=== PATIENT | male | born 1955 | race Caucasian/White ===

== ENCOUNTER 2018-07-18 11:28 | Emergency (ER) | payer OTHER ==
[~2018-07-18] VITALS: Ht 180.3 cm; Wt 90.7 kg
== END 2018-07-18 12:45 | disposition home or self-care (01) ==
LOC: ED 11:28
DX: S61.412A Laceration without foreign body of left hand, initial encounter (principal); R03.0 Elevated blood-pressure reading, without diagnosis of hypertension; F17.200 Nicotine dependence, unspecified, uncomplicated; Z88.5 Allergy status to narcotic agent; W23.0XXA Caught, crushed, jammed, or pinched between moving objects, initial encounter
CPT/HCPCS: 73130; 99283

== ENCOUNTER 2019-12-14 17:13 | Emergency (ER) | payer BC ==
[~2019-12-14] VITALS: Ht 180.3 cm; Wt 97.5 kg
--- OUTSIDE RECORDS SUMMARY | ~2019-12-14 | XMS | Encounter Summary ---
Demographics + + + | Address | [address] | | | [place] [address] | + + + | Home Phone | | + + + | Preferred Language | Unknown | + + + | Marital Status | | + + + | Caodaism Affiliation | CHR | + + + | Race | White | + + + | Ethnic Group | Not or | + + + Author + + + | Author | [facility] | + + + | Organization | [facility] | + + + | Address | Unknown | + + + | Phone | Unavailable | + + + Support + + + + + | Name | Relationship | Address | Phone | + + + + + | Adilene Morin | ECON | [address] | | | | | [place] [address] | | + + + + + Care Team Providers + +------+ + | Care Staff Development Coordinator Rn Name | Role | Phone | + +------+ + PCP | Unavailable | + +------+ + Encounter Details +--------+ + + + + | Date | Type | Department | Care Team | Description | +--------+ + + + + | 01/28/ | Procedure - | [facility] | Record, Operation | Operative Report | | 2006 | | [place] [facility] [address] | | | | | Transcribed | [facility] | | | | | | Mailcode: [facility] | | [facility] | | | | | [facility], [address] | | | | | | [place], [place] | | | | | | [address] | | | | | | [phone] | | | +--------+ + + + + Social History + +-------+ +--------+------+ | Tobacco Use | Types | Packs/Day | Years | Date | | | | | Used | | + +-------+ +--------+------+ | Never Assessed | | | | | + +-------+ +--------+------+ + + + | Sex Assigned at | Date Recorded | | | | + + + | Not on file | | + + + + + + + | Job Start Date | Occupation | Industry | + + + + | Not on file | Not on file | Not on file | + + + + + + + + | Travel History | Travel Start | Travel End | + + + + + + | No recent travel history available. | + + documented as of this encounter Plan of Treatment Not on filedocumented as of this encounter Procedures + +--------+ + + + | Procedure Name | Priori | Date/Time | Associated Diagnosis | Comments | | | ty | | | | + +--------+ + + + | OPERATION RECORD | | 01/28/2007 | | Results for this | | | | 12:00 AM | | procedure are in the | | | | PST | | results section. | + +--------+ + + + documented in this encounter Results OPERATION RECORD (01/28/2007 12:00 AM PST) + + | Procedure Note | + + | 01/28/2007 12:00 AM PST | | [id number] | | [id number] LIANG BARR [id number] | | | | Date: 01/28/2007 | | | | Attending Surgeon: Fabrizio Gu M.D. | | | | Mobile Home Installer(s): Renaldo Brenner M.D., Ph.D. 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 | | | | Postoperative Diagnosis(es): | | Azoospermia. | | | | Procedures Performed: | | Bilateral epididymal vasostomy. | | | | Anesthesia: | | Cord block. | | | | Specimens: | | None. | | | | Indications: | | Mr. Morin had a vasectomy 20 years ago after 2 children. He is | | from his first . He is now to a 38-year-old woman who has had | | 1 child, but with whom he would like a child. Procedure is indicated for | | procreation. | | | | Findings: | | After removing the vasectomy sites, pasty semen was recovered that did not | | contain sperm. The epididymis was explored. On the left, intact sperm was | | recovered from the junction of the caput and corpus epididymis where an | | epididymal vasostomy was done. On the right, sperm was recovered from the | | distal corpus epididymis where an epididymal vasostomy was performed. | | | | Procedure: | | The patient was identified and brought to the operating room, where he was | | given a satisfactory cord block with 0.5% ropivacaine mixed 1:1 with 1% | | Xylocaine. He was prepped and draped in a standard manner for genital | | surgery. The left scrotum was entered. The site of the previous vasectomy | | identified and excised. Distal vas patency was determined by a normal | | saline flush. Proximally, we found no sperm. The testis was delivered, | | and the epididymis was explored. It appeared to be obstructed at the | | junction of the caput and corpus epididymis. After adequate hemostasis, | | the ends of the vas and epididymis were brought through a rubber dam, and | | under the operating microscope, an epididymal tubule was dissected free. | | It was opened. There was immediate gush of opalescent semen containing | | sperm. A double-layer epididymal vasostomy performed in the routine | | fashion with 10-0 and 9-0 Dexon. After completing the repair, a final | | check was made for hemostasis. The vas and epididymis were replaced into | | the scrotum, and the scrotum was closed in 2 layers with 4-0 chromic. | | | | The right side was done identically. It will not be separately described, | | except to say that the epididymal vasostomy was done more distally. | | | | At the end of the procedure, a dressing was applied under an athletic | | supporter. The patient was returned to the ambulatory surgery unit in | | satisfactory condition having tolerated the procedure well. | | | | | | | | | | Fabrizio Gu M.D. | | | | EFF / HS | | [id number] / [id number] / [id number] / [id number] | | | | | | | | | | | | Electronically signed by Fabrizio Gu 02-14-2007 02:44:52 PM | | | | | + + documented in this encounter Visit Diagnoses Not on filedocumented in this encounter"
--- OUTSIDE RECORDS SUMMARY | ~2019-12-14 | XMS | Clinical Summary ---
Demographics + + + | Address | [address] | | | [place] [address] | + + + | Home Phone | | + + + | Preferred Language | Unknown | + + + | Marital Status | | + + + | Yazdanism Affiliation | 1013 | + + + | Race | Unknown | + + + | Ethnic Group | Unknown | + + + Author + + + | Author | [facility] | | | and [place] | + + + | Organization | [facility] | | | and [place] | + + + | Address | Unknown | + + + | Phone | Unavailable | + + + Support + + + + + | Name | Relationship | Address | Phone | + + + + + | Adilene Morin | ECON | [address] | | | | | [place] [address] | | + + + + + Care Team Providers + +------+ + | Care Ribbing Machine Operator Name | Role | Phone | + +------+ + | Luís Goodrich PA-C | PCP | | + +------+ + Allergies + + + + + + | Active Allergy | Reactions | Severity | Noted | Comments | | | | | Date | | + + + + + + | Hydromorphone | Nausea Only | Low | 08/07/18 | | | | | | 12 | | + + + + + + Medications + + + +---------+------+------+-------+ | Medication | Sig | Dispensed | Refills | Star | End | Statu | | | | | | t | Date | s | | | | | | Date | | | + + + +---------+------+------+-------+ | aspirin 81 mg EC | Take 81 mg by mouth | | 0 | | | Activ | | tablet | Daily. | | | | | e | + + + +---------+------+------+-------+ | UNABLE TO FIND | Med Name: Copaiba | | 0 | | | Activ | | | doTERRA Essential | | | | | e | | | oilForms: oral and | | | | | | | | topical Ingredients: | | | | | | | | Resin from | | | | | | | | Copaifera | | | | | | | | reticulata, | | | | | | | | officinalis, | | | | | | | | coriacea, and | | | | | | | | jim, | | | | | | | | -caryophyllene | | | | | | + + + +---------+------+------+-------+ | UNABLE TO FIND | Med Name: Deep Blue | | 0 | | | Activ | | | doTerra essential | | | | | e | | | oil Form: topically | | | | | | | | use only | | | | | | | | Ingredients: | | | | | | | | [place], | | | | | | | | Camphor, Peppermint, | | | | | | | | Ylang Ylang, | | | | | | | | Helichrysum, Blue | | | | | | | | Tansy, Blue | | | | | | | | Chamomile, and | | | | | | | | Osmanthus | | | | | | + + + +---------+------+------+-------+ | UNABLE TO FIND | Med Name: Serenity | | 0 | | | Activ | | | doTERRA essential | | | | | e | | | oilForms: Topical | | | | | | | | and inhalation | | | | | | | | Ingredients: | | | | | | | | Lavender Flower, | | | | | | | | Cedarwood, Ho Wood | | | | | | | | Roberdel, Ylang Viviang | | | | | | | | Flower, Marjoram | | | | | | | | Roberdel, Fabio | | | | | | | | Chamomile Flower, | | | | | | | | Vetiver Root, | | | | | | | | Vanilla Soto | | | | | | | | Absolute, | | | | | | | | Sandalwood | | | | | | + + + +---------+------+------+-------+ | UNABLE TO FIND | Med Name: Breath | | 0 | | | Activ | | | doTERRA essential | | | | | e | | | oil Form: Topical | | | | | | | | Ingredients: Carmelina | | | | | | | | Roberdel, Eucalyptus | | | | | | | | Roberdel, Peppermint | | | | | | | | Plant, Melaleuca | | | | | | | | Roberdel, Lemon Peel, | | | | | | | | Cardamom Seed, | | | | | | | | Ravintsara Roberdel, | | | | | | | | Ravensara Roberdel | | | | | | | | essential oils | | | | | | + + + +---------+------+------+-------+ | UNABLE TO FIND | Med Name: | | 0 | | | Activ | | | Frankincense doTERRA | | | | | e | | | essential oil Form: | | | | | | | | Topical, Oral (put | | | | | | | | in a capsule or in | | | | | | | | liquids to drink) | | | | | | | | Ingredients: Resin | | | | | | | | from Angelaia | | | | | | | | carterii, sacra, | | | | | | | | papyrifera, and | | | | | | | | frereana, a-pinene, | | | | | | | | limonene, a-thujene | | | | | | + + + +---------+------+------+-------+ | UNABLE TO FIND | Med Name: On Guard | | 0 | | | Activ | | | doTerra essential | | | | | e | | | oil Form: topical, | | | | | | | | oral. Ingredients: | | | | | | | | Wild [place] Peel, | | | | | | | | Clove Wanette, Cinnamon | | | | | | | | Roberdel, Cinnamon Bark, | | | | | | | | Eucalyptus Roberdel, | | | | | | | | and Candace | | | | | | | | Roberdel/Flower | | | | | | | | essential oils. | | | | | | + + + +---------+------+------+-------+ | UNABLE TO FIND | Med Name: Julisa [place] | | 0 | | | Activ | | | (essential oil omega | | | | | e | | | complex) | | | | | | | | Directions: Take | | | | | | | | four caps by mouth | | | | | | | | once daily with food | | | | | | | | Ingredients: "One | | | | | | | | serving of xEO Bereket | | | | | | | | provides 900 | | | | | | | | milligrams of marine | | | | | | | | lipids (providing | | | | | | | | 300 mg of EPA, 300 | | | | | | | | mg of DHA, and 70 mg | | | | | | | | of other omega 3s), | | | | | | | | and a blend of 250 | | | | | | | | mg of plant-sourced | | | | | | | | fatty acids. xEO | | | | | | | | Bereket also includes | | | | | | | | 800 IU of natural | | | | | | | | vitamin D, 60 IU of | | | | | | | | natural vitamin E, | | | | | | | | and 1 mg of | | | | | | | | astaxanthin, a | | | | | | | | powerful antioxidant | | | | | | | | carotenoid* | | | | | | | | harvested from | | | | | | | | microalgae" | | | | | | + + + +---------+------+------+-------+ | UNABLE TO FIND | Med Name: Microplex | | 0 | | | Activ | | | VMz Food nutrient | | | | | e | | | complex doTerra | | | | | | | | product | | | | | | | | Instructions: take 4 | | | | | | | | caps by mouth once | | | | | | | | daily with | | | | | | | | foodIngredients: | | | | | | | | Provides 22 | | | | | | | | essential vitamins | | | | | | | | and minerals, | | | | | | | | vitamins A, B, C, D, | | | | | | | | and E, calcium, | | | | | | | | magnesium, zinc, | | | | | | | | Natural folate from | | | | | | | | lemon peel, | | | | | | | | selenium, copper, | | | | | | | | manganese, and | | | | | | | | chromium, Includes a | | | | | | | | whole-food | | | | | | | | botanical blend of | | | | | | | | kale, dandelion, | | | | | | | | parsley, kelp, | | | | | | | | broccoli, brussels | | | | | | | | sprout, cabbage, and | | | | | | | | spinach, digestive | | | | | | | | enzyme blend of | | | | | | | | protease, lactase, | | | | | | | | lipase, amylase, | | | | | | | | a-galactosidase, | | | | | | | | diastase, | | | | | | | | glucoamylase, and | | | | | | | | peptidase, | | | | | | | | Peppermint, Roxana, | | | | | | | | and Brad, Made | | | | | | | | with sodium lauryl | | | | | | | | sulfate-free | | | | | | | | vegetable capsules | | | | | | + + + +---------+------+------+-------+ | UNABLE TO FIND | Med Name: Alpha CRS+ | | 0 | | | Activ | | | Cellular Vitality | | | | | e | | | ComplexDirections: | | | | | | | | take 4 caps by mouth | | | | | | | | once daily with | | | | | | | | food Ingredients: | | | | | | | | baicalin from | | | | | | | | scutellaria root, | | | | | | | | resveratrol from | | | | | | | | Polygonum | | | | | | | | cuspidatum, ellagic | | | | | | | | acid from | | | | | | | | pomegranate, | | | | | | | | proanthocyanidins | | | | | | | | from grape seeds, | | | | | | | | curcumin from | | | | | | | | turmeric root, and | | | | | | | | silymarin from milk | | | | | | | | thistle, extract of | | | | | | | | Boswellia colleen | | | | | | | | for boswellic acid, | | | | | | | | extract of Ginkgo | | | | | | | | biloba, coenzyme | | | | | | | | Q10, quercetin, | | | | | | | | alpha-lipoic acid, | | | | | | | | and | | | | | | | | apodpr-c-taggkbouc), | | | | | | | | Peppermint, Roxana, | | | | | | | | and [place], Made | | | | | | | | with sodium lauryl | | | | | | | | sulfate-free | | | | | | | | vegetable capsules | | | | | | | | Last | | | | | | + + + +---------+------+------+-------+ | amiodarone | Take 1 tablet by | 60 | 3 | 03/3 | | Activ | | (PACERONE) 200 mg | mouth 2 times daily. | tablet | | 20 | | e | | tablet | | | | 19 | | | + + + +---------+------+------+-------+ | clopidogrel | Take 1 tablet by | 90 | 3 | 04/0 | | Activ | | (PLAVIX) 75 mg | mouth Daily. | tablet | | 1/20 | | e | | tablet | | | | 19 | | | + + + +---------+------+------+-------+ | verapamil | Take 1 capsule by | 30 | 3 | 04/0 | | Activ | | (VERELAN) 120 mg SR | mouth Daily. | capsule | | 1/20 | | e | | capsule | | | | 19 | | | + + + +---------+------+------+-------+ | UNABLE TO FIND | Med Name: Copaiba | | 0 | | | Activ | | | doTERRA Essential | | | | | e | | | oilForms: oral and | | | | | | | | topical Ingredients: | | | | | | | | Resin from | | | | | | | | Copaifera | | | | | | | | reticulata, | | | | | | | | officinalis, | | | | | | | | coriacea, and | | | | | | | | langbipinorffii, | | | | | | | | -caryophyllene | | | | | | + + + +---------+------+------+-------+ | UNABLE TO FIND | Med Name: Deep Blue | | 0 | | | Activ | | | doTerra essential | | | | | e | | | oil Form: topically | | | | | | | | use only | | | | | | | | Ingredients: | | | | | | | | [place] Ka[place]Ho, | | | | | | | | Camphor, Peppermint, | | | | | | | | Ylang Ylang, | | | | | | | | Helichrysum, Blue | | | | | | | | Tansy, Blue | | | | | | | | Chamomile, and | | | | | | | | Osmanthus | | | | | | + + + +---------+------+------+-------+ | UNABLE TO FIND | Med Name: Serenity | | 0 | | | Activ | | | doTERRA essential | | | | | e | | | oilForms: Topical | | | | | | | | and inhalation | | | | | | | | Ingredients: | | | | | | | | Lavender Flower, | | | | | | | | Cedarwood, Ho Wood | | | | | | | | Roberdel, Ylang Ylang | | | | | | | | Flower, Marjoram | | | | | | | | Roberdel, Fabio | | | | | | | | Chamomile Flower, | | | | | | | | Vetiver Root, | | | | | | | | Vanilla Soto | | | | | | | | Absolute, | | | | | | | | Sandalwood | | | | | | + + + +---------+------+------+-------+ | UNABLE TO FIND | Med Name: Breath | | 0 | | | Activ | | | doTERRA essential | | | | | e | | | oil Form: Topical | | | | | | | | Ingredients: Carmelina | | | | | | | | Roberdel, Eucalyptus | | | | | | | | Roberdel, Peppermint | | | | | | | | Plant, Melaleuca | | | | | | | | Roberdel, Lemon Peel, | | | | | | | | Cardamom Seed, | | | | | | | | Ravintsara Roberdel, | | | | | | | | Ravensara Roberdel | | | | | | | | essential oils | | | | | | + + + +---------+------+------+-------+ | UNABLE TO FIND | Med Name: | | 0 | | | Activ | | | Frankincense doTERRA | | | | | e | | | essential oil Form: | | | | | | | | Topical, Oral (put | | | | | | | | in a capsule or in | | | | | | | | liquids to drink) | | | | | | | | Ingredients: Resin | | | | | | | | from Boswellia | | | | | | | | carterii, sacra, | | | | | | | | papyrifera, and | | | | | | | | frereana, a-pinene, | | | | | | | | limonene, a-thujene | | | | | | + + + +---------+------+------+-------+ | UNABLE TO FIND | Med Name: On Guard | | 0 | | | Activ | | | doTerra essential | | | | | e | | | oil Form: topical, | | | | | | | | oral. Ingredients: | | | | | | | | Wild [place] Peel, | | | | | | | | Clove Wanette, Cinnamon | | | | | | | | Roberdel, Cinnamon Bark, | | | | | | | | Eucalyptus Roberdel, | | | | | | | | and Candace | | | | | | | | Roberdel/Flower | | | | | | | | essential oils. | | | | | | + + + +---------+------+------+-------+ | UNABLE TO FIND | Med Name: Julisa Cuba | | 0 | | | Activ | | | (essential oil omega | | | | | e | | | complex) | | | | | | | | Directions: Take | | | | | | | | four caps by mouth | | | | | | | | once daily with food | | | | | | | | Ingredients: "One | | | | | | | | serving of xEO Bereket | | | | | | | | provides 900 | | | | | | | | milligrams of marine | | | | | | | | lipids (providing | | | | | | | | 300 mg of EPA, 300 | | | | | | | | mg of DHA, and 70 mg | | | | | | | | of other omega 3s), | | | | | | | | and a blend of 250 | | | | | | | | mg of plant-sourced | | | | | | | | fatty acids. xEO | | | | | | | | Bereket also includes | | | | | | | | 800 IU of natural | | | | | | | | vitamin D, 60 IU of | | | | | | | | natural vitamin E, | | | | | | | | a... | | | | | | + + + +---------+------+------+-------+ | UNABLE TO FIND | Med Name: Microplex | | 0 | | | Activ | | | VMz Food nutrient | | | | | e | | | complex doTerra | | | | | | | | product | | | | | | | | Instructions: take 4 | | | | | | | | caps by mouth once | | | | | | | | daily with | | | | | | | | foodIngredients: | | | | | | | | Provides 22 | | | | | | | | essential vitamins | | | | | | | | and minerals, | | | | | | | | vitamins A, B, C, D, | | | | | | | | and E, calcium, | | | | | | | | magnesium, zinc, | | | | | | | | Natural folate from | | | | | | | | lemon peel, | | | | | | | | selenium, copper, | | | | | | | | manganese, and | | | | | | | | chromium, Includes a | | | | | | | | whole-food | | | | | | | | botanical blend of | | | | | | | | kale, dandelion, | | | | | | | | parsley, kelp, | | | | | | | | broccoli, br... | | | | | | + + + +---------+------+------+-------+ | UNABLE TO FIND | Med Name: Alpha CRS+ | | 0 | | | Activ | | | Cellular Vitality | | | | | e | | | ComplexDirections: | | | | | | | | take 4 caps by mouth | | | | | | | | once daily with | | | | | | | | food Ingredients: | | | | | | | | baicalin from | | | | | | | | scutellaria root, | | | | | | | | resveratrol from | | | | | | | | Polygonum | | | | | | | | cuspidatum, ellagic | | | | | | | | acid from | | | | | | | | pomegranate, | | | | | | | | proanthocyanidins | | | | | | | | from grape seeds, | | | | | | | | curcumin from | | | | | | | | turmeric root, and | | | | | | | | silymarin from milk | | | | | | | | thistle, extract of | | | | | | | | Boswellia colleen | | | | | | | | for boswellic acid, | | | | | | | | extract of Ginkgo | | | | | | | | biloba, c... | | | | | | + + + +---------+------+------+-------+ | atorvaSTATin | Take 1 tablet by | | 0 | 04/2 | | Activ | | (LIPITOR) 20 mg | mouth nightly. | | | 4/20 | | e | | tablet | | | | 19 | | | + + + +---------+------+------+-------+ | metoprolol | Take 1 tablet by | | 0 | 04/2 | | Activ | | succinate | mouth daily. | | | 4/20 | | e | | (TOPROL-XL) 25 mg 24 | | | | 19 | | | | hr tablet | | | | | | | + + + +---------+------+------+-------+ | nitroglycerin | Place 1 tablet under | | 0 | 04/0 | 04/0 | Activ | | (NITROSTAT) 0.4 mg | the tongue every 5 | | | 3/20 | 2/20 | e | | SL tablet | (five) minutes as | | | 19 | 20 | | | | needed for Chest | | | | | | | | pain. | | | | | | + + + +---------+------+------+-------+ | aspirin 81 MG EC | Take 81 mg by mouth | | 0 | | | Activ | | tablet | daily with | | | | | e | | | breakfast. | | | | | | + + + +---------+------+------+-------+ | clopidogrel | Take 75 mg by mouth | | 0 | | | Activ | | (PLAVIX) 75 mg | daily. | | | | | e | | tablet | | | | | | | + + + +---------+------+------+-------+ Active Problems + + + | Problem | Noted Date | + + + | Chronic back pain | 06/25/2019 | + + + | Coronary atherosclerosis | 06/25/2019 | + + + | Hyperlipidemia | 06/25/2019 | + + + | [place] (myocardial infarction) | 06/25/2019 | + + + + + | Overview: Overview: secondary to occlusion of nondominant | | RCA, S/P stenting June 2012 | + + + + + | Past history of chewing tobacco use | 06/25/2019 | + + + | S/P coronary artery stent placement | 03/22/2019 | + + + | Other chest pain | 03/07/2019 | + + + | STEMI (ST elevation myocardial infarction) | 02/24/2019 | + + + | Cellulitis | 10/02/2015 | + + + | Contusion of right knee | 10/02/2015 | + + + | Deep vein thrombosis (DVT) of lower extremity | 10/02/2015 | + + + | Embolism from vein | 10/02/2015 | + + + | Iliotibial band syndrome | 10/02/2015 | + + + | Localized swelling, mass, or lump of lower extremity | 10/02/2015 | + + + | Gastroesophageal reflux disease | 02/11/2015 | + + + | Heart murmur | 04/19/2014 | + + + | Hypertension | 04/17/2013 | + + + Family History + + +------+ + | Medical History | Relation | Name | Comments | + + +------+ + | No known problems | Father | | | + + +------+ + | Cancer | Father | | | + + +------+ + | No known problems | Mother | | | + + +------+ + | defects | Sister | | | + + +------+ + | Early | Sister | | | + + +------+ + | Sudden | Sister | | | + + +------+ + + +------+ + + | Relation | Name | Status | Comments | + +------+ + + | Father | | | | + +------+ + + | Father | | | | + +------+ + + | Father | | | | + +------+ + + | Mother | | | | + +------+ + + | Mother | | | | + +------+ + + | Sister | | | | + +------+ + + | Sister | | | | + +------+ + + Social History + + + +--------+ + | Tobacco Use | Types | Packs/Day | Years | Date | | | | | Used | | + + + +--------+ + | Former Smoker | Cigarettes | 0.5 | | 03/09/1989 - | | | | | | 02/24/2019 | + + + +--------+ + + +---+---+---+ | Smokeless Tobacco: | | | | | Current User | | | | + +---+---+---+ + + +---------+ + | Alcohol Use | Drinks/Week | oz/Week | Comments | + + +---------+ + | No | | | unknown | + + +---------+ + + + + | Sex Assigned at [...] recent travel history available. | + + Last Filed Vital Signs + + + + + | Vital Sign | Reading | Time Taken | Comments | + + + + + | Blood Pressure | 160/90 | 06/21/2019 11:28 AM | | | | | PDT | | + + + + + | Pulse | 58 | 06/21/2019 11:28 AM | | | | | PDT | | + + + + + | Temperature | 36.8 C (98.2 F) | 03/01/2019 9:25 PM | | | | | PDT | | + + + + + | Respiratory Rate | 18 | 06/21/2019 11:28 AM | | | | | PDT | | + + + + + | Oxygen Saturation | 97% | 03/09/2019 12:01 PM | | | | | PDT | | + + + + + | Inhaled Oxygen | - | - | | | Concentration | | | | + + + + + | Weight | 100.2 kg (221 lb) | 06/21/2019 11:28 AM | | | | | PDT | | + + + + + | Height | 179.1 cm (5' 10.5") | 06/21/2019 11:28 AM | | | | | PDT | | + + + + + | Body Mass Index | 31.26 | 06/21/2019 11:28 AM | | | | | PDT | | + + + + + Plan of Treatment + + + + + | Health Maintenance | Due Date | Last Done | Comments | + + + + + | Hepatitis C | | | | | Screening | 8 | | | + + + + + | Vaccine: | | | | | Pneumococcal 19-64 | 4 | | | | (1 of 1 - PPSV23) | | | | + + + + + | Colorectal Cancer | | | | | Screening | 8 | | | | (Colonoscopy) | | | | + + + + + | Vaccine: Zoster (1 | | | | | of 2) | 8 | | | + + + + + | Statin Therapy | | | | | (optimal intensity) | 9 | | | + + + + + | Vaccine: Influenza | | | | | (#1) | 9 | | | + + + + + | Vaccine: | | 10/23/2013 | | | Dtap/Tdap/Td (2 - | 3 | | | | Td) | | | | + + + + + Implants + +-------+------+ +--------+--------+--------+ | Implanted | Type | Area | Manufacture | Device | Shelf | Model | | | | | r | | Expira | / | | | | | | Identi | tion | Serial | | | | | | fier | Date | / Lot | + +-------+------+ +--------+--------+--------+ | Stent Luis Alberto Synergy Mr 2.5 X 16 | Stent | | [place] | [id number] | 11/01/ | [id number] | | - [id number]: Qty: | | | SCIENTIFIC | [id number] | 2020 | [id number] | | 1 on 02/24/2019 by Nghia, | | | RICHARD - BSCI | 91 | | 50 / | | Maynor Mancera MD at [facility] | | | | | | /[id number] | | [facility] | | | | | | [address] | | CENTER | | | | | | | + +-------+------+ +--------+--------+--------+ Results Not on filefrom Last 3 Months Insurance +-------+--------+ +--------+-------+---------+------+ | Payer | Benefi | Subscriber | Effect | Phone | Address | Type | | | t Plan | ID | yuliana | | | | | | / | | Dates | | | | | | Group | | | | | | +-------+--------+ +--------+-------+---------+------+ | BCBS | BCBS | [id number] | 02/28/20 | | | PPO | | | OOS | 7 | 19-Pre | | | | | | PPO | | sent | | | | +-------+--------+ +--------+-------+---------+------+ + +--------+ +--------+ + + | Guarantor Name | Accoun | Relation to | Date | Phone | Billing Address | | | t Type | Patient | of | | | | | | | | | | + +--------+ +--------+ + + | Maury Morin | Person | Self | [birth year] | [address] | | | al/[place] | | [address] | [phone] | [place] | | | [place] | | | [address] ([place]) | [address] | + +--------+ +--------+ + + Advance Directives + + + + + | Type | Date Recorded | Patient | Explanation | | | | Seo Marketing Specialist | | + + + + + | Power of | | | | | Product Advisor | | | | + + + + + | Advance | 02/24/2019 4:23 | | | | Directive | PM | | | + + + + + + + + + + | Code Status | Date | Date | Comments | | | Activated | Inactivated | | + + + + + | Full Code | 02/25/2019 | 02/26/2019 | | | | 12:35 PM | 12:04 PM | | + + + + +
--- OUTSIDE RECORDS SUMMARY | ~2019-12-14 | XMS | Encounter Summary ---
Demographics + + + | Address | [address] | | | [place] [address] | + + + | Home Phone | | + + + | Preferred Language | Unknown | + + + | Marital Status | | + + + | Restorationist Affiliation | 1013 | + + + | Race | Unknown | + + + | Ethnic Group | Unknown | + + + Author + + + | Author | [facility] | | | and [place] | + + + | Organization | [facility] | | | and [place] | + + + | Address | Unknown | + + + | Phone | Unavailable | + + + Support + + + + + | Name | Relationship | Address | Phone | + + + + + | Adilene Morin | ECON | [address] | | | | | [place] [address] | | + + + + + Care Team Providers + +------+ + | Care Credit Rating Checker Name | Role | Phone | + +------+ + | No, Physician | PCP | Unavailable | + +------+ + Reason for Visit +--------+ + | Reason | Comments | +--------+ + | Other | issue with medication | +--------+ + Encounter Details +--------+ + + + + | Date | Type | Department | Care Team | Description | +--------+ + + + + | 03/01/ | Telephone | [facility] | Maynor Agrawal MD | Other (issue with | | 2019 | | CARDIOLOGY [address] | medication) | | | | [place], | [place] | | | | | [place] [address] | [address] | | | | | [phone] | | | +--------+ + + + + Social History + + + +--------+------+ | Tobacco Use | Types | Packs/Day | Years | Date | | | | | Used | | + + + +--------+------+ | Current Every Day | Cigarettes | | | | | Smoker | | | | | + + + +--------+------+ + +---+---+---+ | Smokeless Tobacco: | | | | | Never Used | | | | + +---+---+---+ + [...] Not on filedocumented as of this encounter Visit Diagnoses Not on filedocumented in this encounter"
--- OUTSIDE RECORDS SUMMARY | ~2019-12-14 | XMS | Encounter Summary ---
Demographics + + + | Address | [address] | | | [place] [address] | + + + | Home Phone | | + + + | Preferred Language | Unknown | + + + | Marital Status | | + + + | Moravian Affiliation | 1013 | + + + | Race | Unknown | + + + | Ethnic Group | Unknown | + + + Author + + + | Author | [facility] | | | and [place] | + + + | Organization | [facility] | | | and [place] | + + + | Address | Unknown | + + + | Phone | Unavailable | + + + Support + + + + + | Name | Relationship | Address | Phone | + + + + + | Adilene Mikel | ECON | [address] | | | | | [place] [address] | | + + + + + Care Team Providers + +------+ + | Care Branch Mechanic Name | Role | Phone | + +------+ + PCP | Unavailable | + +------+ + Encounter Details +--------+ + + + + | Date | Type | Department | Care Team | Description | +--------+ + + + + | 12/07/ | Hospital | [facility] | | | | 2008 | Encounter | [facility] [address] | | | | | | [place] | | | | | | [place] [address] | | | | | | [phone] | | | +--------+ + + + [...]
--- OUTSIDE RECORDS SUMMARY | ~2019-12-14 | XMS | Encounter Summary ---
Demographics + + + | Address | [address] | | | [place] [address] | + + + | Home Phone | | + + + | Preferred Language | Unknown | + + + | Marital Status | | + + + | Restorationist Affiliation | [id number] | + + + | Race | Unknown | + + + | Ethnic Group | Unknown | + + + Author + + + | Author | [facility] | | | and [place] | + + + | Organization | [facility] | | | and [place] | + + + | Address | Unknown | + + + | Phone | Unavailable | + + + Support + + + + + | Name | Relationship | Address | Phone | + + + + + | Adilenedannielle Morin | ECON | [address] | | | | | [place] [address] | | + + + + + Care Team Providers + +------+ + | Care Real Estate Professional Name | Role | Phone | + +------+ + | No, Physician | PCP | Unavailable | + +------+ + Reason for Visit + + + | Reason | Comments | + + + | New Patient | hospital follow up | + + + Self-referral (Routine) +--------+--------+ + + + + | Status | Reason | Specialty | Diagnoses / | Referred By | Referred To | | | | | Procedures | Contact | Contact | +--------+--------+ + + + + | Closed | | Cardiology | Diagnoses | | Maynor Agrawal | | | | | Acute | | MD Fiord[facility] [address] | | | | | myocardial | | [address] | | | | | infarction | | [place], | | | | | Procedures | | [place] [address] | | | | | [place] OFFICE | | Phone: | | | | | CONSULTATION | | [phone] | | | | | NEW/ESTAB | | Fax: | | | | | PATIENT 40 | | [phone] | | | | | MIN | | | | | | | Consulted by | | | | | | | Dr. Agrawal in | | | | | | | hospital | | | +--------+--------+ + + + + Encounter Details +--------+---------+ + + + | Date | Type | Department | Care Team | Description | +--------+---------+ + + + | 03/09/ | Office | [facility] | Maynor Agrawal MD | Atherosclerosis of | | 2018 | Visit | CARDIOLOGY [address] | [place] coronary | | | | [place], | [place], [place] | artery of [place] | | | | [place] [address] | [address] | heart without angina | | | | [phone] | | pectoris (Primary | | | | | | Dx); ST elevation | | | | | | myocardial | | | | | | infarction (STEMI) | | | | | | involving other | | | | | | coronary artery | | | | | | (HCC) | +--------+---------+ + + + Social History + + + +--------+ + | Tobacco Use | Types | Packs/Day | Years | Date | | | | | Used | | + + + +--------+ + | Former Smoker | Cigarettes | 0.75 | | 03/09/1989 - | | | [...] + + documented as of this encounter Last Filed Vital Signs + + + + + | Vital Sign | Reading | Time Taken | Comments | + + + + + | Blood Pressure | 152/74 | 03/09/2019 12:01 PM | | | | | PDT | | + + + + + | Pulse | 68 | 03/09/2019 12:01 PM | | | | | PDT | | + + + + + | Temperature | - | - | | + + + + + | Respiratory Rate | 20 | 03/09/2019 12:01 PM | | | | | PDT | | + + + + + | Oxygen Saturation | 97% | 03/09/2019 12:01 PM | | | | | PDT | | + + + + + | Inhaled Oxygen | - | - | | | Concentration | | | | + + + + + | Weight | 96.7 kg (213 lb 3 | 03/09/2019 12:01 PM | | | | oz) | PDT | | + + + + + | Height | 177.8 cm (5' 10") | 03/09/2019 12:01 PM | | | | | PDT | | + + + + + | Body Mass Index | 30.59 | 03/09/2019 12:01 PM | | | | | PDT | | + + + + + documented in this encounter Patient Instructions Patient Instructions Marlys Mena RN - 03/09/2019 12:30 PM PDT Blood test: Fasting- 12 hours prior to test, no food, no caffiene, water is ok Date Due: prior to next appointment Where to go for labs: Lab of your choice, please see lab orders, take them with you to the lab. Follow up appointment: 4 weeks Provider: Nghia Mcguire MD Date: Check-In Time: documented in this encounter Progress Notes Maynor Agrawal MD - 03/09/2019 12:30 PM PDT PATIENT NAME: Maury Morin : 1955: AGE: 63 y.o. PRIMARY CARE: No Physician on file OUTPATIENT FOLLOW UP VISIT Date of Service: 03/09/19 PROBLEMS ADDRESSED AT THIS VISIT: 1. Atherosclerosis of [place] coronary artery of [place] heart without angina pectoris PRESENT ILLNESS: Maury Morin is a 63 y.o. male with history of acute inferior myocardial infarction with RCA stenting. Patient has no history of coronary disease with previous stents. He is doing quite well bu t then had acute inferior myocardial infarction which was treated with primary angioplasty. He is transported from his work and panel done on 02/24/2019 and [facility]. His hospital course was remarkable for the episodes in the last 3 sustained VT for which rosi cuevas was started on amiodarone. He also has a history of beta-elmira intolerance and refused to take same. He is on aspirin 6 and verapamil 120 mg a day as well as amiodarone. He may be on lipid medications well with an LDL calculated level of 105. After his hospitalization, patient went back to work the next day. Then developed chest pa ins and was seen in [facility]. There he was felt to be stable with no acute thrombo sis. Today, patient complains primarily of easy fatigability. MEDICAL, SURGICAL, AND PERSONAL HISTORY Past Medical, Surgical, Family, and Social History details are found in EPIC and not reprod uced here. Changes since last visit: None CURRENT PROBLEMS Patient Active Problem List Diagnosis STEMI (ST elevation myocardial infarction) Other chest pain CURRENT MEDICATIONS Current Outpatient Medications Medication Sig Dispense Refill amiodarone (PACERONE) 200 mg tablet Take 1 tablet by mouth 2 times daily. 60 tablet 3 aspirin 81 mg EC tablet Take 81 mg by mouth Daily. clopidogrel (PLAVIX) 75 mg tablet Take 1 tablet by mouth Daily. 90 tablet 3 UNABLE TO FIND Med Name: Copaiba doTERRA Essential oil Forms: oral and topical Ingredients: Resin from Copaifera reticulata, officinalis, coriacea, and langsdorffii, -c aryophyllene UNABLE TO FIND Med Name: Deep Blue Jsa essential oil Form: topically use only Ingredients: Peoa, Camphor, Peppermint, Ylang Ylang, Helichrysum, Blue Tansy, Blue C hamomile, and Osmanthus UNABLE TO FIND Med Name: Serenity doTERRA essential oil Forms: Topical and inhalation Ingredients: Lavender Flower, Cedarwood, Ho Wood [place], Ylang Ylang Flower, Marjoram [place], R catalina Chamomile Flower, Vetiver Root, Vanilla Soto Absolute, Sandalwood UNABLE TO FIND Med Name: Breath doTERRA essential oil Form: Topical Ingredients: Carmelina [place], Eucalyptus [place], Peppermint Plant, Melaleuca [place], Lemon Peel, Ca rdamom Seed, Ravintsara [place], Ravensara [place] essential oils UNABLE TO FIND Med Name: Franknatanaelense JsA essential oil Form: Topical, Oral (put in a capsule or in liquids to drink) Ingredients: Resin from Boswellia carterii, sacra, papyrifera, and frereana, a-pinene, limo jose, a-thujene UNABLE TO FIND Med Name: On Guard Jsa essential oil Form: topical, oral. Ingredients: Wild [place] Peel, Clove [place], Cinnamon [place], Cinnamon Bark, Eucalyptus [place], an d Candace [place]/Flower essential oils. UNABLE TO FIND Med Name: xEO Bereket (essential oil omega complex) Directions: Take four caps by mouth once daily with food Ingredients: "One serving of xEO Bereket provides 900 milligrams of marine lipids (providing 3 00 mg of EPA, 300 mg of DHA, and 70 mg of other omega 3s), and a blend of 250 mg of plant-so urced fatty acids. xEO Bereket also includes 800 IU of natural vitamin D, 60 IU of natural justin min E, and 1 mg of astaxanthin, a powerful antioxidant carotenoid* harvested from microalgae " UNABLE TO FIND Med Name: [facility] Food nutrient complex doTerra product Instructions: take 4 caps by mouth once daily with food Ingredients: Provides 22 essential vitamins and minerals, vitamins A, B, C, D, and E, calci um, magnesium, zinc, Natural folate from lemon peel, selenium, copper, manganese, and chromi um, Includes a whole-food botanical blend of kale, dandelion, parsley, kelp, broccoli, bruss els sprout, cabbage, and spinach, digestive enzyme blend of protease, lactase, lipase, amyla se, a-galactosidase, diastase, glucoamylase, and peptidase, Peppermint, Roxana, and Sand[place], Made with sodium lauryl sulfate-free vegetable capsules UNABLE TO FIND Med Name: Alpha CRS+ Cellular Vitality Complex Directions: take 4 caps by mouth once daily with food Ingredients: baicalin from scutellaria root, resveratrol from Polygonum cuspidatum, ellagic acid from pomegranate, proanthocyanidins from grape seeds, curcumin from turmeric root, and silymarin from milk thistle, extract of Boswellia colleen for boswellic acid, extract of Gi nkgo biloba, coenzyme Q10, quercetin, alpha-lipoic acid, and ynqqdv-e-whpiugopy), Peppermint , Roxana, and Sandgap, Made with sodium lauryl sulfate-free vegetable capsules Last verapamil (VERELAN) 120 mg SR capsule Take 1 capsule by mouth Daily. 30 capsule 3 No current facility-administered medications for this visit. ALLERGIES Allergies Allergen Reactions Hydromorphone Nausea Only ROS Data found and reviewed in EPIC. Pertinent changes/review: None OBJECTIVE: PHYSICAL EXAM BP 152/74 | Pulse 68 | Resp 20 | Ht 1.778 m (5' 10") | Wt 96.7 kg (213 lb 3 oz) | SpO2 97% | BMI 30.59 kg/m General: No distress and not acutely ill. HEENT: Ocular movements normal. No facial or cranial trauma. Chest: Normal respiratory effort and pattern. CV: No JVD. Rhythm regular no extra heartbeats. Ausculation: A 2/6 systolic murmur is no alta. Abd: No hepatomegaly or tenderness. Ext: Hands and feet are normal in color and temperature. Neuro: No obvious motor or cranial nerve deficit. Oriented. NEW OR RECENT DATA: None ASSESSMENT: 1. Ischemic heart disease with prior stents and recent acute inferior myocardial infarctio n with RCA stent occlusion treated with primary angioplasty 2. Hypertrophic cardiomyopathy with diastolic dysfunction 3. Systolic murmur without gradients noted at time of heart catheterization 4 Easy fatigability possibly due to #2 and component of RV infarct PLAN: Medication changes: None. Testing ordered today: Patient to have a repeat lipid panel, chemistry, hemoglobin, liver f unction tests. Return early March. He is placed on short-term disability so that he can recover. On his re turn visit, we will assess the need to continue amiodarone and whether he should be tolerati ng higher doses of verapamil for hypertension his and his hypertrophic cardiomyopathy.. Electronically signed by: Maynor Agrawal MD [facility] 03/09/2019 Portions of this chart may have been created with [employer] voice recognition software. Occasi onal wrong-word or sound-alike substitutions may have occurred due to the inherent edge itations of voice recognition software. Please read the chart carefully and recognize, using context, where these substitutions have occurred. documented in this encounter Plan of Treatment + +------+--------+ + + | Name | Type | Priori | Associated Diagnoses | Order Schedule | | | | ty | | | + +------+--------+ + + | CBC with | Lab | Routin | ST elevation | Expected: | | Differential | | e | myocardial | 03/09/2019, Expires: | | | | | infarction (STEMI) | 03/08/2020 | | | | | involving other | | | | | | coronary artery | | | | | | (HCC) | | + +------+--------+ + + | Basic Metabolic | Lab | Routin | ST elevation | Expected: | | Panel | | e | myocardial | 03/09/2019, Expires: | | | | | infarction (STEMI) | 03/08/2020 | | | | | involving other | | | | | | coronary artery | | | | | | (HCC) | | + +------+--------+ + + | Hepatic Function | Lab | Routin | Atherosclerosis of | Expected: | | Panel | | e | [place] coronary | 03/09/2019, Expires: | | | | | artery of [place] | 03/08/2020 | | | | | heart without angina | | | | | | pectoris ST | | | | | | elevation myocardial | | | | | | infarction (STEMI) | | | | | | involving other | | | | | | coronary artery | | | | | | (HCC) | | + +------+--------+ + + | Lipid Panel | Lab | Routin | Atherosclerosis of | Expected: | | | | e | [place] coronary | 03/09/2019, Expires: | | | | | artery of [place] | 03/08/2020 | | | | | heart without angina | | | | | | pectoris ST | | | | | | elevation myocardial | | | | | | infarction (STEMI) | | | | | | involving other | | | | | | coronary artery | | | | | | (HCC) | | + +------+--------+ + + documented as of this encounter Visit Diagnoses + + | Diagnosis | + + | Atherosclerosis of [place] coronary artery of [place] heart without angina pectoris - | | Primary | + + | ST elevation myocardial infarction (STEMI) involving other coronary artery (HCC) | + + documented in this encounter
--- OUTSIDE RECORDS SUMMARY | ~2019-12-14 | XMS | Encounter Summary ---
Demographics + + + | Address | [address] | | | [place] [address] | + + + | Home Phone | | + + + | Preferred Language | Unknown | + + + | Marital Status | | + + + | Latter-Day Affiliation | 1013 | + + + | Race | Unknown | + + + | Ethnic Group | Unknown | + + + Author + + + | Author | [facility] | | | and [place] | + + + | Organization | [facility] | | | and [place] | + + + | Address | Unknown | + + + | Phone | Unavailable | + + + Support + + + + + | Name | Relationship | Address | Phone | + + + + + | Adilenedannielle Tavera | ECON | [address] | | | | | [place] [address] | | + + + + + Care Team Providers + +------+ + | Care Trust Officer Name | Role | Phone | + +------+ + | Luís Goodrich PA-C | PCP | | + +------+ + Encounter Details +--------+ + + + + | Date | Type | Department | Care Team | Description | +--------+ + + + + | 05/24/ | Orders Only | [facility] | Chuy Kelly MD | | | 2019 | | CARDIOLOGY ADEL | [address] | | | | | ECHO [address] | [place] [address] | | | | | [place], [place] | [phone] | | | | | [address] | | | | | | [phone] | | | +--------+ + + + [...] | + +--------+ + + + | ECHO COMPLETE | Routin | 05/24/2019 | | Results for this | | | e | 2:16 PM | | procedure are in the | | | | PDT | | results section. | + +--------+ + + + documented in this encounter Results ECHO Complete (05/24/2019 2:16 PM PDT) + + | Specimen | + + | | + + + + + | Impressions | Performed At | + + + | 1. Overall left ventricular systolic function is normal with, an EF | | | between 65 - 70 %. 2. There is mild to moderate concentric left | | | ventricular hypertrophy. 3. Trace amount of aortic regurgitation. 4. | | | Mild aortic stenosis with peak/mean pressure gradient of 35.69mmHg / | | | 22.25mmHg, the aortic valve area by continuity equation is | | | 1.7cm . 5. Mild mitral regurgitation is present. 6. The right | | | ventricular systolic pressure (pulmonary artery systolic pressure), as | | | measured by Doppler, is 15.95mmHg. | | + + + + + + | Narrative | Performed At | + + + | Patient Name: MAURY TAVERA Date of : 1955 | | | Performing Physician: Chuy Kelly MD | | | | | | INDICATIONS NSTEMI, S/P STENTS IN RCA, AORTIC STENOSIS | | | CONCLUSIONS 1. Overall left ventricular systolic | | | function is normal with, an EF between 65 - 70 %. 2. There is mild | | | to moderate concentric left ventricular hypertrophy. 3. Trace | | | amount of aortic regurgitation. 4. Mild aortic stenosis with | | | peak/mean pressure gradient of 35.69mmHg / 22.25mmHg, the aortic valve | | | area by continuity equation is 1.7cm . 5. Mild mitral | | | regurgitation is present. 6. The right ventricular systolic pressure | | | (pulmonary artery systolic pressure), as measured by Doppler, is | | | 15.95mmHg. FINDINGS -------- ECG rhythm: Sinus rhythm. Study: A | | | 2-dimensional transthoracic echocardiogram with m-mode, spectral and | | | color flow Doppler was perfomed. Study: This was a technically | | | adequate study. Left Ventricle: Overall left ventricular systolic | | | function is normal with, an EF between 65 - 70 %. Left Ventricle: The | | | left ventricle cavity size is normal. Left Ventricle: There is mild | | | to moderate concentric left ventricular hypertrophy. Right | | | Ventricle: The right ventricle is normal in size and function. Left | | | Atrium: The left atrium is mildly enlarged. Right Atrium: The right | | | atrium is normal in size. Aortic Valve: The aortic valve is | | | moderately calcified. Aortic Valve: Trace amount of aortic | | | regurgitation. Aortic Valve: Mild aortic stenosis with peak/mean | | | pressure gradient of 35.69mmHg / 22.25mmHg, the aortic valve area by | | | continuity equation is 1.7cm . Aortic Valve: The aortic valve | | | appears to be trileaflet. Mitral Valve: Mild mitral regurgitation is | | | present. Mitral Valve: There is mild calcification of the anterior | | | mitral valve leaflet. Tricuspid Valve: The tricuspid valve appears | | | structurally normal. Tricuspid Valve: Trace tricuspid regurgitation | | | present. Tricuspid Valve: The right ventricular systolic pressure | | | (pulmonary artery systolic pressure), as measured by Doppler, is | | | 15.95mmHg. Pulmonic Valve: The pulmonic valve was not well | | | visualized. Pulmonic Valve: Trace pulmonic regurgitation. | | | Pericardium: There is no pericardial effusion. IVC/Hepatic Veins: The | | | inferior vena cava is normal in size and collapses > 50 % with sniff, | | | indicating normal central venous pressures. Aorta: The aortic root, | | | ascending aorta and aortic arch are normal. Mass: No mass visualized | | | Thrombus: No clot visualized Thrombus: No vegetation visualized. | | | Septum: No ASD observed. Septum: No VSD observed. MEASUREMENTS | | | Ao asc: 3.42 cm Ao sinus: 3.[address] junct: | | | 3.02 cm IVC: 1.65 cm EDV(Teich): 100.91 ml IVSd: 1.39 | | | cm LVIDd: 4.67 cm LVPWd: 1.06 cm LVOT Area: 3.86 cm2 LVOT | | | Diam: 2.22 cm %FS: 42.14 % EF(Teich): 73.16 % ESV(Teich): | | | 27.08 ml LVIDs: 2.70 cm SV(Teich): 73.83 ml RV Major: | | | 7.21 cm RV Minor: 3.37 cm LVEF MOD A2C: 73.06 % SV MOD A2C: | | | 60.48 ml LVEF MOD A4C: 71.95 % SV MOD A4C: 112.07 ml EF | | | Biplane: 72.39 % LVEDV MOD BP: 115.74 ml LVESV MOD BP: | | | 31.95 ml LVEDV MOD A2C: 82.78 ml LVLd A2C: 9.60 cm LVEDV MOD | | | A4C: 155.75 ml LVLd A4C: 10.10 cm LVESV MOD A2C: 22.29 ml | | | LVLs A2C: 7.25 cm LVESV MOD A4C: 43.67 ml LVLs A4C: 7.79 cm | | | LAESV(A-L): 80.74 ml LAESV Index (A-L): 37.55 ml/m2 LAAs | | | A2C: 20.42 cm2 LAESV A-L A2C: 67.84 ml LALs A2C: 5.21 cm | | | LAAs A4C: 24.30 cm2 LAESV A-L A4C: 92.92 ml LALs A4C: 5.39 | | | cm RAAs: 16.36 cm2 RAESV A-L: 45.89 ml RAESV MOD: 42.01 ml | | | RALs: 4.95 cm TAPSE: 2.18 cm AV maxP.69 mmHg AV | | | meanP.24 mmHg AV Vmax: 2.98 m/s AV Vmean: 2.24 m/s AV | | | VTI: 66.06 cm CHAUNCEY Vmax: 1.55 cm2 CHAUNCEY (VTI): 1.66 cm2 AVAI | | | (Vmax): 0.00 cm2/m2 AVAI (VTI): 0.00 cm2/m2 LVOT maxPG: | | | 5.77 mmHg LVOT meanP.19 mmHg LVSI Dopp: 51.06 ml/m2 LVSV | | | Dopp: 109.79 ml LVOT Vmax: 1.20 m/s LVOT Vmean: 0.85 m/s | | | LVOT VTI: 28.37 cm MV A Darío: 0.66 m/s MV Dec Lenoir: 3.15 | | | m/s2 MV DecT: 207.50 ms MV E Darío: 0.65 m/s MV E/A Ratio: | | | 0.97 MV PHT: 60.17 ms MVA By PHT: 3.65 cm2 Septal e': 0.04 | | | m/s Septal E/e': 15.97 Lateral e': 0.06 m/s Lateral E/e': | | | 9.79 P Vein A: 0.23 m/s P Vein D: 0.56 m/s P Vein S/D Ratio: | | | 0.95 P Vein S: 0.53 m/s PV maxP.88 mmHg PV Vmax: | | | 1.10 m/s RAP: 5 mmHg RVSP: 15.95 mmHg TR maxP.95 mmHg | | | TR Vmax: 1.65 m/s RV s': 0.09 m/s Hvac Installer: DBS | | | Authenticated by: Chuy Kelly MD Report Date/Time: 05-25-2019 | | | 8:57:40 | | + + + + + | Procedure Note | + + | Justice Keller Conversion - 07/20/2019 1:04 PM PDT Patient Name: Alma TAVERA of | | : 1955 Performing Physician: Chuy Kelly | | MD INDICATIONS N | | STEMI, S/P STENTS IN RCA, AORTIC STENOSIS CONCLUSIONS 1. Overall left | | ventricular systolic function is normal with, an EF between 65 - 70 %.2. There is mild | | to moderate concentric left ventricular hypertrophy.3. Trace amount of aortic | | regurgitation.4. Mild aortic stenosis with peak/mean pressure gradient of 35.69mmHg / | | 22.25mmHg, the aortic valve area by continuity equation is 1.7cm .5. Mild mitral | | regurgitation is present.6. The right ventricular systolic pressure (pulmonary artery | | systolic pressure), as measured by Doppler, is 15.95mmHg. FINDINGS--------ECG rhythm: | | Sinus rhythm.Study: A 2-dimensional transthoracic echocardiogram with m-mode, spectral | | and color flow Doppler was perfomed.Study: This was a technically adequate study.Left | | Ventricle: Overall left ventricular systolic function is normal with, an EF between 65 - | | 70 %.Left Ventricle: The left ventricle cavity size is normal.Left Ventricle: There is | | mild to moderate concentric left ventricular hypertrophy.Right Ventricle: The right | | ventricle is normal in size and function.Left Atrium: The left atrium is mildly | | enlarged.Right Atrium: The right atrium is normal in size.Aortic Valve: The aortic valve | | is moderately calcified.Aortic Valve: Trace amount of aortic regurgitation.Aortic | | Valve: Mild aortic stenosis with peak/mean pressure gradient of 35.69mmHg / 22.25mmHg, | | the aortic valve area by continuity equation is 1.7cm .Aortic Valve: The aortic | | valve appears to be trileaflet.Mitral Valve: Mild mitral regurgitation is present.Mitral | | Valve: There is mild calcification of the anterior mitral valve leaflet.Tricuspid | | Valve: The tricuspid valve appears structurally normal.Tricuspid Valve: Trace tricuspid | | regurgitation present.Tricuspid Valve: The right ventricular systolic pressure | | (pulmonary artery systolic pressure), as measured by Doppler, is 15.95mmHg.Pulmonic | | Valve: The pulmonic valve was not well visualized.Pulmonic Valve: Trace pulmonic | | regurgitation.Pericardium: There is no pericardial effusion.IVC/Hepatic Veins: The | | inferior vena cava is normal in size and collapses > 50 % with sniff, indicating normal | | central venous pressures.Aorta: The aortic root, ascending aorta and aortic arch are | | normal.Mass: No mass visualizedThrombus: No clot visualizedThrombus: No vegetation | | visualized.Septum: No ASD observed.Septum: No VSD observed. MEASUREMENTS Ao | | asc: 3.42 cmAo sinus: 3.[address] junct: 3.02 cmIVC: 1.65 cmEDV(Teich): | | 100.91 mlIVSd: 1.39 cmLVIDd: 4.67 cmLVPWd: 1.06 cmLVOT Area: 3.86 [id number] Diam: | | 2.22 cm%FS: 42.14 %EF(Teich): 73.16 %ESV(Teich): 27.08 mlLVIDs: 2.70 | | cmSV(Teich): 73.83 mlRV Major: 7.21 cmRV Minor: 3.37 cmLVEF MOD A2C: 73.06 %SV | | MOD A2C: 60.48 mlLVEF MOD A4C: 71.95 %SV MOD A4C: 112.07 mlEF Biplane: 72.39 | | %LVEDV MOD BP: 115.74 mlLVESV MOD BP: 31.95 mlLVEDV MOD A2C: 82.78 mlLVLd A2C: | | 9.60 cmLVEDV MOD A4C: 155.75 mlLVLd A4C: 10.10 cmLVESV MOD A2C: 22.29 mlLVLs A2C: | | 7.25 cmLVESV MOD A4C: 43.67 mlLVLs A4C: 7.79 cmLAESV(A-L): 80.74 mlLAESV Index | | (A-L): 37.55 ml/m2LAAs A2C: 20.42 [id number] A-L A2C: 67.84 mlLALs A2C: 5.21 | | cmLAAs A4C: 24.30 [id number] A-L A4C: 92.92 mlLALs A4C: 5.39 cmRAAs: 16.36 | | [id number] A-L: 45.89 mlRAESV MOD: 42.01 mlRALs: 4.95 cmTAPSE: 2.18 cmAV maxPG: | | 35.69 mmHgAV meanP.24 mmHgAV Vmax: 2.98 m/Alex Vmean: 2.24 m/Alex VTI: 66.06 | | cmAVA Vmax: 1.55 cm2AVA (VTI): 1.66 [id number] (Vmax): 0.00 cm2/m2AVAI (VTI): 0.00 | | cm2/m2LVOT maxP.77 mmHgLVOT meanP.19 mmHgLVSI Dopp: 51.06 ml/m2LVSV Dopp: | | 109.79 mlLVOT Vmax: 1.20 m/sLVOT Vmean: 0.85 m/sLVOT VTI: 28.37 cmMV A Darío: | | 0.66 m/sMV Dec Lenoir: 3.15 m/s2MV DecT: 207.50 msMV E Darío: 0.65 m/sMV E/A Ratio: | | 0.97MV PHT: 60.17 msMVA By PHT: 3.65 gm7Pngerx e': 0.04 m/sSeptal E/e': | | 15.97Lateral e': 0.06 m/sLateral E/e': 9.79P Vein A: 0.23 m/sP Vein D: 0.56 m/sP | | Vein S/D Ratio: 0.95P Vein S: 0.53 m/sPV maxP.88 mmHgPV Vmax: 1.10 m/sRAP: | | 5 mmHgRVSP: 15.95 mmHgTR maxP.95 mmHgTR Vmax: 1.65 m/sRV s': 0.09 m/s | | Hvac Installer: DBSAuthenticated by: Chuy RAOfatmata Date/Time: 05-25-2019 8:57:40 | | IMPRESSION: 1. Overall left ventricular systolic function is normal with, an EF between | | 65 - 70 %.2. There is mild to moderate concentric left ventricular hypertrophy.3. Trace | | amount of aortic regurgitation.4. Mild aortic stenosis with peak/mean pressure gradient | | of 35.69mmHg / 22.25mmHg, the aortic valve area by continuity equation is | | 1.7cm .5. Mild mitral regurgitation is present.6. The right ventricular systolic | | pressure (pulmonary artery systolic pressure), as measured by Doppler, is 15.95mmHg. | |EDV(Teich): 100.91 ml | |IVSd: 1.39 cm | |LVIDd: 4.67 cm | |LVPWd: 1.06 cm | |LVOT Area: 3.86 cm2 | |LVOT Diam: 2.22 cm | |%FS: 42.14 % | |EF(Teich): 73.16 % | |ESV(Teich): 27.08 ml | |LVIDs: 2.70 cm | |SV(Teich): 73.83 ml | |RV Major: 7.21 cm | |RV Minor: 3.37 cm | |LVEF MOD A2C: 73.06 % | |SV MOD A2C: 60.48 ml | |LVEF MOD A4C: 71.95 % | |SV MOD A4C: 112.07 ml | |EF Biplane: 72.39 % | |LVEDV MOD BP: 115.74 ml | |LVESV MOD BP: 31.95 ml | |LVEDV MOD A2C: 82.78 ml | |LVLd A2C: 9.60 cm | |LVEDV MOD A4C: 155.75 ml | |LVLd A4C: 10.10 cm | |LVESV MOD A2C: 22.29 ml | |LVLs A2C: 7.25 cm | |LVESV MOD A4C: 43.67 ml | |LVLs A4C: 7.79 cm | |LAESV(A-L): 80.74 ml | |LAESV Index (A-L): 37.55 ml/m2 | |LAAs A2C: 20.42 cm2 | |LAESV A-L A2C: 67.84 ml | |LALs A2C: 5.21 cm | |LAAs A4C: 24.30 cm2 | |LAESV A-L A4C: 92.92 ml | |LALs A4C: 5.39 cm | |RAAs: 16.36 cm2 | |RAESV A-L: 45.89 ml | |RAESV MOD: 42.01 ml | |RALs: 4.95 cm | |TAPSE: 2.18 cm | |AV maxP.69 mmHg | |AV meanP.24 mmHg | |AV Vmax: 2.98 m/s | |AV Vmean: 2.24 m/s | |AV VTI: 66.06 cm | |CHAUNCEY Vmax: 1.55 cm2 | |CHAUNCEY (VTI): 1.66 cm2 | |AVAI (Vmax): 0.00 cm2/m2 | |AVAI (VTI): 0.00 cm2/m2 | |LVOT maxP.77 mmHg | |LVOT meanP.19 mmHg | |LVSI Dopp: 51.06 ml/m2 | |LVSV Dopp: 109.79 ml | |LVOT Vmax: 1.20 m/s | |LVOT Vmean: 0.85 m/s | |LVOT VTI: 28.37 cm | |MV A Darío: 0.66 m/s | |MV Dec Lenoir: 3.15 m/s2 | |MV DecT: 207.50 ms | |MV E Darío: 0.65 m/s | |MV E/A Ratio: 0.97 | |MV PHT: 60.17 ms | |MVA By PHT: 3.65 cm2 | |Septal e': 0.04 m/s | |Septal E/e': 15.97 | |Lateral e': 0.06 m/s | |Lateral E/e': 9.79 | |P Vein A: 0.23 m/s | |P Vein D: 0.56 m/s | |P Vein S/D Ratio: 0.95 | |P Vein S: 0.53 m/s | |PV maxP.88 mmHg | |PV Vmax: 1.10 m/s | |RAP: 5 mmHg | |RVSP: 15.95 mmHg | |TR maxP.95 mmHg | |TR Vmax: 1.65 m/s | |RV s': 0.09 m/s | | | |Hvac Installer: DBS | |Authenticated by: Chuy Kelly MD | |Report Date/Time: 05-25-2019 8:57:40 | | | |IMPRESSION: | |1. Overall left ventricular systolic function is normal with, an EF between 65 - 70 %. | |2. There is mild to moderate concentric left ventricular hypertrophy. | |3. Trace amount of aortic regurgitation. | |4. Mild aortic stenosis with peak/mean pressure gradient of 35.69mmHg / 22.25mmHg, the aort ic valve area by continuity equation is 1.7cm . | |5. Mild mitral regurgitation is present. | |6. The right ventricular systolic pressure (pulmonary artery systolic pressure), as measure d by Doppler, is 15.95mmHg. | + + documented in this encounter Visit Diagnoses Not on filedocumented in this encounter"
--- OUTSIDE RECORDS SUMMARY | ~2019-12-14 | XMS | Encounter Summary ---
Demographics + + + | Address | [address] | | | [place] [address] | + + + | Home Phone | | + + + | Preferred Language | Unknown | + + + | Marital Status | | + + + | Nondenominational Affiliation | 1013 | + + + | Race | Unknown | + + + | Ethnic Group | Unknown | + + + Author + + + | Author | [facility] | | | and [place] | + + + | Organization | [facility] | | | and [place] | + + + | Address | Unknown | + + + | Phone | Unavailable | + + + Support + + + + + | Name | Relationship | Address | Phone | + + + + + | Adilene Mikel | ECON | [address] | | | | | [place] [address] | | + + + + + Care Team Providers + +------+ + | Care Abalone Diver Name | Role | Phone | + +------+ + PCP | Unavailable | + +------+ + Encounter Details +--------+ + + + + | Date | Type | Department | Care Team | Description | +--------+ + + + + | 07/24/ | Hospital | [facility] | | | | 2007 | Encounter | MED [facility] XRAY [address] | | | | | | [address] | | | | | | [place] [address] | | | | | | [phone] | | | +--------+ + + + [...]
--- OUTSIDE RECORDS SUMMARY | ~2019-12-14 | XMS | Encounter Summary ---
Demographics + + + | Address | [address] | | | [place] [address] | + + + | Home Phone | | + + + | Preferred Language | Unknown | + + + | Marital Status | | + + + | Restoration Affiliation | [id number] | + + + [...] + | Adilene Morin | ECON | [address] | | | | | [place] [address] | | + + + + + Care Team Providers + +------+ + | Care Eligibility Supervisor Name | Role | Phone | + +------+ + | No, Physician | PCP | Unavailable | + +------+ + Reason for Visit + + + | Reason | Comments | + + + | Chest Pain | | + + + Auth/Cert +--------+--------+ + + + + | Status | Reason | Specialty | Diagnoses / | Referred By | Referred To | | | | | Procedures | Contact | Contact | +--------+--------+ + + + + | | | | | | | +--------+--------+ + + + + Encounter Details +--------+---------+ + + + | Date | Type | Department | Care Team | Description | +--------+---------+ + + + | 02/24/ | Surgery | [facility] | Maynor Agrawal MD | CV [facility] | | 2019 | | MED CTR CV IN[facility] OP | [address] | | | | | [address] | [place] | | | | | [place] | [id number] | | | | | [address] | | | | | | [phone] | | | +--------+---------+ + + + Social History [...] + + + | Blood Pressure | 166/79 | 02/26/2019 7:55 AM | | | | | PDT | | + + + + + | Pulse | 60 | 02/26/2019 7:55 AM | | | | | PDT | | + + + + + | Temperature | 35.6 C (96.1 F) | 02/26/2019 7:55 AM | | | | | PDT | | + + + + + | Respiratory Rate | 18 | 02/26/2019 7:55 AM | | | | | PDT | | + + + + + | Oxygen Saturation | 99% | 02/26/2019 7:55 AM | 99 | | | | PDT | | + + + + + | Inhaled Oxygen | - | - | | | Concentration | | | | + + + + + | Weight | 94 kg (207 lb 3.7 | 02/25/2019 4:00 AM | | | | oz) | PDT | | + + + + + | Height | - | - | | + + + + + | Body Mass Index | 29.73 | 10/11/2017 1:53 PM | | | | | PST | | + + + + + documented in this encounter Discharge Summaries Maynor Agrawal MD - 02/26/2019 2:23 PM PDT DISCHARGE SUMMARY PATIENT NAME/: Maury Morin, (1955) DATE OF ADMISSION: 02/24/2019 DATE OF DISCHARGE: 02/26/2019 ADMITTING DIAGNOSIS: STEMI (ST elevation myocardial infarction) ([facility]) PRIMARY CARE PROVIDER: No Physician on file DISCHARGE DIAGNOSES: Acute myocardial infarction with RCA occlusion distal to the prior stent DISPOSITION: Discharge to home CARDIAC PROCEDURES AND FINDINGS: Left heart catheterization, left ventriculogram and angioplasty RCA stent with placement of a drug-eluting stent OTHER FINDINGS OF NOTE: Patient with episodes of nonsustained VT in the day 1 postoperative day. SUMMARY OF HISTORY AND PHYSICAL: Patient was at work when he developed acute chest pains. He was transferred via paramedics to [facility]. SUMMARIZED HOSPITAL COURSE: Patient was taken directly to the cardiac catheterization lab. Occlusion of his RCA was noted at the site of previous stent. There is irregularity in his LAD but no critical disease. LV function was intact. Should was observed. He refused beta-blockers with history of not tolerance in the past. Patient is found to have some nonsustained VT in the immediate post [place] days. He was treate d with amiodarone discharged home on p.o. amiodarone DISCHARGE EXAM: General: Alert talkative Heart - regular rate and rhythm, S1 and S2 normal, no murmur, rub, or gallop. Lungs - clear to auscultation bilaterally Neurologic - Grossly normal. MEDS: Discharge Medications New Medications Details amiodarone 200 mg tablet Take 1 tablet by mouth 2 times daily. aka: PACERONE clopidogrel 75 mg tablet Take 1 tablet by mouth Daily. aka: PLAVIX Start: 02/27/2019 verapamil 120 mg SR capsule Take 1 capsule by mouth Daily. aka: VERELAN Start: 02/27/2019 Unchanged Medications Details aspirin 81 mg EC tablet Take 81 mg by mouth Daily. Fish Oil 435 MG Caps Take 870 mg by mouth Daily. UNABLE TO FIND Med Name: Leonel WeinsteinA Essential oil Forms: oral and topical Ingredients: Resin fr om Copaifera reticulata, officinalis, coriacea, and langsdorffii, -caryophyllene UNABLE TO FIND Med Name: Deep Blue doTerra essential oil Form: topically use only Ingredients: Winter green, Camphor, Peppermint, Ylang Ylang, Helichrysum, Blue Tansy, Blue Chamomile, and Osmant hus UNABLE TO FIND Med Name: Serenity doTERRA essential oil Forms: Topical and inhalation Ingredients: Lav yoko Flower, Cedarwood, Ho Wood Coldfoot, Ylang Ylang Flower, Marjoram Coldfoot, Fabio Chamomile Fl ower, Vetiver Root, Vanilla Soto Absolute, Sandalwood UNABLE TO FIND Med Name: Breath doTERRA essential oil Form: Topical Ingredients: Carmelina Coldfoot, Eucalyp tus Coldfoot, Peppermint Plant, Melaleuca Coldfoot, Lemon Peel, Cardamom Seed, Ravintsara Coldfoot, Rave nsara Coldfoot essential oils UNABLE TO FIND Med Name: Frankincense doTERRA essential oil Form: Topical, Oral (put in a capsule or in liquids to drink) Ingredients: Resin from Boswellia carterii, sacra, papyrifera, and frer eana, a-pinene, limonene, a-thujene UNABLE TO FIND Med Name: On Guard doTerra essential oil Form: topical, oral. Ingredients: Wild [place] Peel, Clove Hassell, Cinnamon Coldfoot, Cinnamon Bark, Eucalyptus Coldfoot, and Ila Coldfoot/Flower es sential oils. UNABLE TO FIND Med Name: xEO Bereket (essential oil omega complex) Directions: Take four caps by mouth onc e daily with food Ingredients: "One serving of xEO Bereket provides 900 milligrams of marine lipids (providing 300 mg of EPA, 300 mg of DHA, and 70 mg of other omega 3s), and a blend of 250 mg of plant-sourced fatty acids. xEO Bereket also includes 800 IU of natural vitamin D, 60 IU of natural vitamin E, and 1 mg of astaxanthin, a powerful antioxidant carotenoid* harves alta from microalgae" UNABLE TO FIND Med Name: Monserrat [facility] Food nutrient complex doTerra product Instructions: take 4 caps by mouth once daily with food Ingredients: Provides 22 essential vitamins and minerals, vit amins A, B, C, D, and E, calcium, magnesium, zinc, Natural folate from lemon peel, selenium, copper, manganese, and chromium, Includes a whole-food botanical blend of kale, dandelion, parsley, kelp, broccoli, brussels sprout, cabbage, and spinach, digestive enzyme blend of pr otease, lactase, lipase, amylase, a-galactosidase, diastase, glucoamylase, and peptidase, Pe ppermint, Roxana, and Brad, Made with sodium lauryl sulfate-free vegetable capsules UNABLE TO FIND Med Name: Alpha CRS+ Cellular Vitality Complex Directions: take 4 caps by mouth once ciro y with food Ingredients: baicalin from scutellaria root, resveratrol from Polygonum cuspid atum, ellagic acid from pomegranate, proanthocyanidins from grape seeds, curcumin from turme gregg root, and silymarin from milk thistle, extract of Boswellia colleen for boswellic acid, extract of Ginkgo biloba, coenzyme Q10, quercetin, alpha-lipoic acid, and nrbevx-h-repglqtuc ), Peppermint, Roxana, and Burg[place], Made with sodium lauryl sulfate-free vegetable capsules Last PATIENT INSTRUCTIONS: Activity: Cardiac rehabilitation Diet: cardiac diet Other instructions: Discharge Instructions Eating Heart-Healthy Foods Eating has a big impact on your heart health. In fact, eating healthier can improve several of your heart risks at once. For instance, it helps you manage weight, cholesterol, and blo od pressure. Here are ideas to help you make heart-healthy changes without giving up allth e foods and flavors you love. Getting started Talk with your healthcare provider about eating plans, such as the DASH or Mediterranean diet. You may also be referred to a dietitian. Change a few things at a time. Give yourself time to get used to a few eating changes be fore adding more. Work to create a tasty, healthy eating plan that you can stick to for the rest of your l naomi. Goals for healthy eating Below are some tips to improve your eating habits: Limit saturated fats and trans fats. Saturated fats raise your levels of cholesterol, so keep these fats to a minimum. They are found in foods such as fatty meats, whole milk, thuy se, and palm and coconut oils. Avoid trans fats because they lower good cholesterol as well as raise bad cholesterol. Trans fats are most often found in processed foods. Reduce sodium (salt) intake. Eating too much salt may increase your blood pressure. Limi t your sodium intake to 2,300 milligrams (mg) per day(the amount in 1 teaspoon of salt), o r less if your healthcare provider recommends it. Dining out less often and eating fewer pro cessed foods are two great ways to decrease the amount of salt you consume. Managing calories. A calorie is a unit of energy. Your body ndiaye calories for fuel, but if you eat more calories than your body ndiaye, the extras are stored as fat. Your healthcar e provider can help you create a diet plan to manage your calories. This will likely include eating healthier foods as well as exercising regularly. To help you track your progress, ke ep a diary to record what you eat and how often you exercise. Choose the right foods Aim to make these foods nicole of your diet. If you have diabetes, you may have different recommendations than what is listed here: Fruits and vegetables provide plenty of nutrients without a lot of calories. At meals, f ill half your plate with these foods. Split the other half of your plate between whole grain s and lean protein. Whole grains are high in fiber and rich in vitamins and nutrients. Good choices include whole-wheat bread, pasta, and brown rice. Lean proteins give you nutrition with less fat. Good choices include fish, skinless chic julienne, and beans. Low-fat or nonfat dairy provides nutrients without a lot of fat. Try low-fat or nonfat m ilk, cheese, or yogurt. Healthy fats can be good for you in small amounts. These are unsaturated fats, such as o live oil, nuts, and fish. Try to have at least 2 servings per week of fatty fish, such as sa lmon, sardines, mackerel, rainbow trout, and albacore tuna. These contain omega-3 fatty acid s, which are good for your heart. Flaxseed is another source of a heart-healthy fat. More on heart-healthy eating Read food labels Healthy eating starts at the grocery store. Be sure to pay attention to food labels on pack aged foods. Look for products that are high in fiber and protein, and low in saturated fat, cholesterol, and sodium. Avoid products that contain trans fat. And pay close attention to s erving size. For instance, if you plan to eat two servings, double all the numbers on the la bel. Prepare food right A acuna part of healthy cooking is cutting down on added fat and salt. Look on the internet f or lower-fat, lower-sodium recipes. Also, try these tips: Remove fat from meat and skin from poultry before cooking. Skim fat from the surface of soups and sauces. Broil, boil, bake, steam, grill, and microwave food without added fats. Choose ingredients that spice up your food without adding calories, fat, or sodium. Try these items: horseradish, hot sauce, lemon, mustard, nonfat salad dressings, and vinegar. Fo r salt-free herbs and spices, try basil, cilantro, cinnamon, pepper, and ila. Date Last Reviewed: 08/29/201719990674-[address] [employer] [place] [address]. All righ ts reserved. This information is not intended as a substitute for professional medical care. Always follow your healthcare professional's instructions. Getting Started With Cardiac Rehab: Exercise Being more active is a acuna part of heart attack prevention. It helps your heart muscle and the rest of your body get stronger. It also helps control other heart risks. For lasting results, exercise needs to be a lifelong commitment. Getting started Join a cardiac rehab program. This is one of the easiest ways to start exercising. When your healthcare provider says it s OK, you can start exercising on your own at home or at a gym. Gradually work toward the goal of exercising at least 150 minutes a week. Know that a managed plan of exercise will reduce your risk for another heart attack. Find activities you enjoy, from walking with a friend to playing tennis. If you do what you like, you ll not only enjoy yourself, but you ll also be more likely to stick with i t. Cardiac rehabilitation In cardiac rehab, a team of providers creates an exercise plan for you and guides you throu gh it. At first, the goal is to regain basic endurance and strength. You ll start with rosa ething simple, such as walking. Then you ll be given exercises to help you further increas e strength and endurance, as well as flexibility. The skills you learn in cardiac rehab can benefit you for the rest of your life. Date Last Reviewed: 01/27/201819996729-[address] [employer] [place] [address], [place] [address]. All righ ts reserved. This information is not intended as a substitute for professional medical care. Always follow your healthcare professional's instructions. Discharge Instructions for Heart Attack You have had a heart attack (acute myocardial infarction). A heart attack occurs when a ves adams that sends blood to your heart suddenly becomes blocked. This causes your heart not to w ork as well as it should. Follow these guidelines for home care and lifestyle changes. Home care Take your medicines exactly as directed. Don t skip doses. Talk with your healthcare p lindsay if your medicines aren't working for you. Together you can come up with another koko tment plan. Remember that recovery after a heart attack takes time. Plan to rest for at least 4 to 8 weeks while you recover. Then return to normal activity when your doctor says it s OK. Ask your doctor about joining a heart rehabilitation program. This can help strengthen y our heart and lungs and give you more energy and confidence. Tell your doctor if you are feeling depressed. Feelings of sadness are common after a he art attack. But it is important to speak to someone or seek counselingif you are feeling o verwhelmed by these feelings. Call 911 right away if youhavechest pain or pain that goes to your shoulder, neck, o r back.Don't drive yourself to the hospital. Ask your family members to learn CPR. This is an important skill that can save lives whe n it's needed. Learn to take your own blood pressure and pulse. Keep a record of your results. Ask your doctor when you should seek emergency medical attention. He or she will tell you which bloo d pressure reading is dangerous. Lifestyle changes Your heart attack might have been caused by cardiovascular disease. Your healthcare provide r will work with you to make changes to your lifestyle. This will help the heart disease fro m getting worse. These changes will most likely be a combination of diet and exercise. Diet Your healthcare provider will tell you what changes you need to make to your diet. You may need to see a registered dietitian for help with these diet changes. These changes may inclu de: Cutting back on how much fat and cholesterol you eat Cutting back on how much salt (sodium) you eat, especially if you have high blood pressu re Eating more fresh vegetables and fruits Eating lean proteins such as fish, poultry, beans, and peas, and eating less red meat an d processed meats Using low-fat dairy products Using vegetable and nut oils in limited amounts Limiting how many sweets and processed foods such as chips, cookies, and baked goods you eat Limiting how often you eat out. And when you do eat out, making better food choices. Not eating fried or greasy foods, or foods high in saturated fat Exercise Your healthcare provider may tell you to get more exercise if you haven't been physically a ctive. Depending on your case, your provider may recommend that you get moderate to vigorous physical activity for at least 40 minutes each day, and for at least 3 to 4 days each week. A few examples of moderate to vigorous activity include: Walking at a brisk pace, about 3 to 4 miles per hour Jogging or running Swimming or water aerobics Hiking Dancing Martial arts Tennis Riding a bicycle or stationary bike Other changes Your healthcare provider may also recommend that you: Lose weight. If youare overweight or obese, your provider will work with you to lose e xtra pounds. Making diet changes and getting more exercise can help. A good goal is to lose your 10% of your body weight in one year. Stop smoking. Sign up for a stop-smoking program to make it more likely for you to quit for good. You can join a stop-smoking support group. Or ask your doctor about nicotine repla cement products. Learn to manage stress. Stress management techniques to help you deal with stress in you r home and work life. This will help you feel better emotionally and ease the strain on your heart. Follow-up Make a follow-up appointment as directed. Call 911 Call 911 right awayif you have: Chest pain that goes to your neck, jaw, back, or shoulder Shortness of breath When to call your healthcare provider Callyour healthcare provider right away if you have: Lightheadedness, dizziness, or fainting Feeling of irregular heartbeat or fast pulse Date Last Reviewed: 08/29/201619998652-3605 [employer]. [address] [place] [address], [place] [address]. All righ ts reserved. This information is not intended as a substitute for professional medical care. Always follow your healthcare professional's instructions. Follow-up: In [address] Maynor Agrawal in cardiology clinic. Time spent on discharge planning: greater than 30 minutes Portions of this chart may have been created with [employer] voice recognition software. Occasi onal wrong-word or sound-alike substitutions may have occurred due to the inherent edge itations of voice recognition software. Please read the chart carefully and recognize, using context, where these substitutions have occurred. documented in this encounter Discharge Instructions Instructions Maynor Agrawal MD - 02/26/2019 Eating Heart-Healthy Foods Eating has a big impact on your heart health. In fact, eating healthier can improve several of your heart risks at once. For instance, it helps you manage weight, cholesterol, and blo od pressure. Here are ideas to help you make heart-healthy changes without giving up allth e foods and flavors you love. Getting started Talk with your healthcare provider about eating plans, such as the DASH or Mediterranean diet. You may also be referred to a dietitian. Change a few things at a time. Give yourself time to get used to a few eating changes be fore adding more. Work to create a tasty, healthy eating plan that you can stick to for the rest of your l naomi. Goals for healthy eating Below are some tips to improve your eating habits: Limit saturated fats and trans fats. Saturated fats raise your levels of cholesterol, so keep these fats to a minimum. They are found in foods such as fatty meats, whole milk, thuy se, and palm and coconut oils. Avoid trans fats because they lower good cholesterol as well as raise bad cholesterol. Trans fats are most often found in processed foods. Reduce sodium (salt) intake. Eating too much salt may increase your blood pressure. Limi t your sodium intake to 2,300 milligrams (mg) per day(the amount in 1 teaspoon of salt), o r less if your healthcare provider recommends it. Dining out less often and eating fewer pro cessed foods are two great ways to decrease the amount of salt you consume. Managing calories. A calorie is a unit of energy. Your body ndiaye calories for fuel, but if you eat more calories than your body ndiaye, the extras are stored as fat. Your healthcar e provider can help you create a diet plan to manage your calories. This will likely include eating healthier foods as well as exercising regularly. To help you track your progress, ke ep a diary to record what you eat and how often you exercise. Choose the right foods Aim to make these foods nicole of your diet. If you have diabetes, you may have different recommendations than what is listed here: Fruits and vegetables provide plenty of nutrients without a lot of calories. At meals, f ill half your plate with these foods. Split the other half of your plate between whole grain s and lean protein. Whole grains are high in fiber and rich in vitamins and nutrients. Good choices include whole-wheat bread, pasta, and brown rice. Lean proteins give you nutrition with less fat. Good choices include fish, skinless chic julienne, and beans. Low-fat or nonfat dairy provides nutrients without a lot of fat. Try low-fat or nonfat m ilk, cheese, or yogurt. Healthy fats can be good for you in small amounts. These are unsaturated fats, such as o live oil, nuts, and fish. Try to have at least 2 servings per week of fatty fish, such as sa lmon, sardines, mackerel, rainbow trout, and albacore tuna. These contain omega-3 fatty acid s, which are good for your heart. Flaxseed is another source of a heart-healthy fat. More on heart-healthy eating Read food labels Healthy eating starts at the grocery store. Be sure to pay attention to food labels on pack aged foods. Look for products that are high in fiber and protein, and low in saturated fat, cholesterol, and sodium. Avoid products that contain trans fat. And pay close attention to s erving size. For instance, if you plan to eat two servings, double all the numbers on the la bel. Prepare food right A acuna part of healthy cooking is cutting down on added fat and salt. Look on the internet f or lower-fat, lower-sodium recipes. Also, try these tips: Remove fat from meat and skin from poultry before cooking. Skim fat from the surface of soups and sauces. Broil, boil, bake, steam, grill, and microwave food without added fats. Choose ingredients that spice up your food without adding calories, fat, or sodium. Try these items: horseradish, hot sauce, lemon, mustard, nonfat salad dressings, and vinegar. Fo r salt-free herbs and spices, try basil, cilantro, cinnamon, pepper, and ila. Date Last Reviewed: 08/29/2017 [employer]. [address] [place] [address]. All righ ts reserved. This information is not intended as a substitute for professional medical care. Always follow your healthcare professional's instructions. Getting Started With Cardiac Rehab: Exercise Being more active is a acuna part of heart attack prevention. It helps your heart muscle and the rest of your body get stronger. It also helps control other heart risks. For lasting results, exercise needs to be a lifelong commitment. Getting started Join a cardiac rehab program. This is one of the easiest ways to start exercising. When your healthcare provider says it s OK, you can start exercising on your own at home or at a gym. Gradually work toward the goal of exercising at least 150 minutes a week. Know that a managed plan of exercise will reduce your risk for another heart attack. Find activities you enjoy, from walking with a friend to playing tennis. If you do what you like, you ll not only enjoy yourself, but you ll also be more likely to stick with i t. Cardiac rehabilitation In cardiac rehab, a team of providers creates an exercise plan for you and guides you throu gh it. At first, the goal is to regain basic endurance and strength. You ll start with rosa ething simple, such as walking. Then you ll be given exercises to help you further increas e strength and endurance, as well as flexibility. The skills you learn in cardiac rehab can benefit you for the rest of your life. Date Last Reviewed: 01/27/2018 [employer]. [address] [place] [id number]. All righ ts reserved. This information is not intended as a substitute for professional medical care. Always follow your healthcare professional's instructions. Discharge Instructions for Heart Attack You have had a heart attack (acute myocardial infarction). A heart attack occurs when a ves adams that sends blood to your heart suddenly becomes blocked. This causes your heart not to w ork as well as it should. Follow these guidelines for home care and lifestyle changes. Home care Take your medicines exactly as directed. Don t skip doses. Talk with your healthcare p lindsay if your medicines aren't working for you. Together you can come up with another koko tment plan. Remember that recovery after a heart attack takes time. Plan to rest for at least 4 to 8 weeks while you recover. Then return to normal activity when your doctor says it s OK. Ask your doctor about joining a heart rehabilitation program. This can help strengthen y our heart and lungs and give you more energy and confidence. Tell your doctor if you are feeling depressed. Feelings of sadness are common after a he art attack. But it is important to speak to someone or seek counselingif you are feeling o verwhelmed by these feelings. Call 911 right away if youhavechest pain or pain that goes to your shoulder, neck, o r back.Don't drive yourself to the hospital. Ask your family members to learn CPR. This is an important skill that can save lives whe n it's needed. Learn to take your own blood pressure and pulse. Keep a record of your results. Ask your doctor when you should seek emergency medical attention. He or she will tell you which bloo d pressure reading is dangerous. Lifestyle changes Your heart attack might have been caused by cardiovascular disease. Your healthcare provide r will work with you to make changes to your lifestyle. This will help the heart disease fro m getting worse. These changes will most likely be a combination of diet and exercise. Diet Your healthcare provider will tell you what changes you need to make to your diet. You may need to see a registered dietitian for help with these diet changes. These changes may inclu de: Cutting back on how much fat and cholesterol you eat Cutting back on how much salt (sodium) you eat, especially if you have high blood pressu re Eating more fresh vegetables and fruits Eating lean proteins such as fish, poultry, beans, and peas, and eating less red meat an d processed meats Using low-fat dairy products Using vegetable and nut oils in limited amounts Limiting how many sweets and processed foods such as chips, cookies, and baked goods you eat Limiting how often you eat out. And when you do eat out, making better food choices. Not eating fried or greasy foods, or foods high in saturated fat Exercise Your healthcare provider may tell you to get more exercise if you haven't been physically a ctive. Depending on your case, your provider may recommend that you get moderate to vigorous physical activity for at least 40 minutes each day, and for at least 3 to 4 days each week. A few examples of moderate to vigorous activity include: Walking at a brisk pace, about 3 to 4 miles per hour Jogging or running Swimming or water aerobics Hiking Dancing Martial arts Tennis Riding a bicycle or stationary bike Other changes Your healthcare provider may also recommend that you: Lose weight. If youare overweight or obese, your provider will work with you to lose e xtra pounds. Making diet changes and getting more exercise can help. A good goal is to lose your 10% of your body weight in one year. Stop smoking. Sign up for a stop-smoking program to make it more likely for you to quit for good. You can join a stop-smoking support group. Or ask your doctor about nicotine repla cement products. Learn to manage stress. Stress management techniques to help you deal with stress in you r home and work life. This will help you feel better emotionally and ease the strain on your heart. Follow-up Make a follow-up appointment as directed. Call 911 Call 911 right awayif you have: Chest pain that goes to your neck, jaw, back, or shoulder Shortness of breath When to call your healthcare provider [place] healthcare provider right away if you have: Lightheadedness, dizziness, or fainting Feeling of irregular heartbeat or fast pulse Date Last Reviewed: 08/29/[id number] [employer]. [address] [place] [address], [place] [address]. All righ ts reserved. This information is not intended as a substitute for professional medical care. Always follow your healthcare professional's instructions. documented in this encounter Medications at Time of Discharge + + + +---------+ + + | Medication | Sig | Dispensed | Refills | Start | End Date | | | | | | Date | | + + + +---------+ + + | amiodarone | Take 1 tablet by | 60 | 3 | 02/27/20 | | | (PACERONE) 200 mg | mouth 2 times daily. | tablet | | 19 | | | tablet | | | | | | + + + +---------+ + + | aspirin 81 mg EC | Take 81 mg by mouth | | 0 | | | | tablet | Daily. | | | | | + + + +---------+ + + | clopidogrel | Take 1 tablet by | 90 | 3 | 02/28/20 | | | (PLAVIX) 75 mg | mouth Daily. | tablet | | 19 | | | tablet | | | | | | + + + +---------+ + + | UNABLE TO FIND | Med Name: Copaiba | | 0 | | | | | doTERRA Essential | | | | | | | oilForms: oral and | [...] | | | | | | | reshmafii, | | | | | | | -caryophyllene | | | | | + + + +---------+ + + | UNABLE TO FIND | Med Name: Deep Blue | | 0 | | | | | doTerra essential | | | | | | | oil Form: topically | | | | | | | use only | | | | | | | Ingredients: | | | | | | | [place], | | | | | | | Camphor, Peppermint, | | | | | | | Ylang Ylang, | | | | | | | Helichrysum, Blue | | | | | | | Tansy, Blue | | | | | | | Chamomile, and | | | | | | | Osmanthus | | | | | + + + +---------+ + + | UNABLE TO FIND | Med Name: Serenity | | 0 | | | | | doTERRA essential | | | | | | | oilForms: Topical | | | | | | | and inhalation | | | | | | | Ingredients: | | | | | | | Lavender Flower, | | | | | | | Cedarwood, Ho Wood | | | | | | | Coldfoot, Ylang Ylang | | | | | | | Flower, Marjoram | | | | | | | Coldfoot, Fabio | | | | | | | Chamomile Flower, | | | | | | | Vetiver Root, | | | | | | | Vanilla Soto | | | | | | | Absolute, | | | | | | | Sandalwood | | | | | + + + +---------+ + + | UNABLE TO FIND | Med Name: Breath | | 0 | | | | | doTERRA essential | | | | | | | oil Form: Topical | | | | | | | Ingredients: Carmelina | | | | | | | Coldfoot, Eucalyptus | | | | | | | Coldfoot, Peppermint | | | | | | | Plant, Melaleuca | | | | | | | Coldfoot, Lemon Peel, | | | | | | | Cardamom Seed, | | | | | | | Ravintsara Coldfoot, | | | | | | | Ravensara Coldfoot | | | | | | | essential oils | | | | | + + + +---------+ + + | UNABLE TO FIND | Med Name: | | 0 | | | | | Genaro doTERRA | | | | | | | essential oil Form: | [...] limonene, a-thujene | | | | | + + + +---------+ + + | UNABLE TO FIND | Med Name: On Guard | | 0 | | | | | doTerra essential | | | | | | | oil Form: topical, | | | | | | | oral. Ingredients: | | | | | | | [place] Peel, | | | | | | | Clove Hassell, Cinnamon | | | | | | | Coldfoot, Cinnamon Bark, | | | | | | | Eucalyptus Coldfoot, | | | | | | | and Ila | | | | | | | Coldfoot/Flower | | | | | | | essential oils. | | | | | + + + +---------+ + + | UNABLE TO FIND | Med Name: Julisa Bereket | | 0 | | | | | (essential oil omega | | | | | | | complex) | | | [...] | microalgae" | | | | | + + + +---------+ + + | UNABLE TO FIND | Med Name: Microplex | | 0 | | | | | VMz Food nutrient | | | | | | | complex doTerra | | [...] | | | | | | and [place], Made | | | | | | | with sodium lauryl | | | | | | | sulfate-free | | | | | | | vegetable capsules | | | | | + + + +---------+ + + | UNABLE TO FIND | Med Name: Alpha CRS+ | | 0 | | | | | Cellular Vitality | | | | | | | ComplexDirections: | | | [...] | | | | | | | [id number]), | | | | | | | Peppermint, Roxana, | | | | | | | and [place], Made | | | | | | | with sodium lauryl | | | | | | | sulfate-free | | | | | | | vegetable capsules | | | | | | | Last | | | | | + + + +---------+ + + | verapamil | Take 1 capsule by | 30 | 3 | 02/28/20 | | | (VERELAN) 120 mg SR | mouth Daily. | capsule | | 19 | | | capsule | | | | | | + + + +---------+ + + | Wayzata-3 Fatty | Take 870 mg by mouth | | 0 | | | | Acids (FISH OIL) 435 | Daily. | | | | 9 | | MG CAPS | | | | | | + + + +---------+ + + documented as of this encounter Progress Notes Efrain Herrera, Crow - 02/25/2019 1:14 PM PDTFormatting of this note might be diffe rent from the original. PHARMACY SERVICES: ADMISSION MEDICATION REVIEW Maury Morin is a 63 y.o. male admitted on 02/24/2019. Patient is a reliable historian. Location of Patient when reviewed: ED X Medical Floor Patient s prior to admit medication and over the counter (OTC) medications/herbal supplem ents list obtained from: X Verbal interview X Patient ABLE to recall name, strength, and directions X Pharmacy list names: [facility] Vaccines up to date? Yes No Unsure Influenza X Pneumococcal X Tdap X Shingles X Noted medications discrepancies or medication-related issues: Medication added: Medication: Prior to Admission Sig: Wayzata-3 fatty acids 435 mg caps 870 mg by mouth once daily Unable to find: Copaiba doTERRA essential oil Forms: oral and topical Ingredients: Resin from Copaifera reticulata, officinalis, coriacea, and langsdorffii, -c aryophyllene Unable to find: Deep Blue essential oil Form: topically use only Ingredients: [place], Camphor, Peppermint, Ylang Ylang, Helichrysum, Blue Tansy, Blue C hamomile, and Osmanthus Unable to find: Serenity essential oil Forms: Topical and inhalation Ingredients: Lavender Flower, Cedarwood, Ho Wood Coldfoot, Ylang Ylang Flower, Marjoram Coldfoot, R catalina Chamomile Flower, Vetiver Root, Vanilla Soto Absolute, [facility] [place] Unable to find: Breath doTerra essential oil Form: Topical Ingredients: Carmelina Coldfoot, Eucalyptus Coldfoot, Peppermint Plant, Melaleuca Coldfoot, Lemon Peel, Ca rdamom Seed, Ravintsara Coldfoot, Ravensara Coldfoot essential oils Unable to find: Frankincense doTERRA essential oil Form: Topical, Oral (put in a capsule o r in liquids to drink) Ingredients: Resin from Boswellia carterii, sacra, papyrifera, and frereana, a-pinene, limo jose, a-thujene Unable to find: On Guard doTerra essential oil Form: topical, oral. Ingredients: [place] Peel, Clove Hassell, Cinnamon Coldfoot, Cinnamon Bark, Eucalyptus Coldfoot, an d Ila Coldfoot/Flower essential oils. xEO Bereket (essential oil omega complex) caps (doTerra essential oils) Directions: Take four caps by mouth once [...] powerful antioxidant carotenoid* harvested from microalgae " [facility] Food nutrient complex caps (doTerra essential oils) Instructions: take 4 caps by mouth once [...] diastase, glucoamylase, and peptidase, Peppermint, Roxana, and Brad, Made with sodium lauryl sulfate-free vegetable capsules Alpha CRS+ Cellular Vitality Complex (doTerra essential oils) Directions: take 4 caps by mo uth once daily with food Ingredients: baicalin from scutellaria root, resveratrol from Polygonum cuspidatum, ellagic acid from pomegranate, proanthocyanidins from grape seeds, curcumin from turmeric root, and silymarin from milk thistle, extract of Boswellia colleen for boswellic acid, extract of Gi nkgo biloba, coenzyme Q10, quercetin, alpha-lipoic acid, and [id number]), Peppermint , Roxana, and Brad, Made with sodium lauryl sulfate-free vegetable capsules Last Recreational Substances, Tobacco & Alcohol use : Drug: Route Frequency: Last Used: Tobacco Smoking 5 packs/ weeks 02/24/19 @12 pm Tobacco Chewing 1 can/week 02/24/19 Alcohol 32 oz per day 02/21/19 PM Patient states "that's all I drink" Other: Medication: Prior to Admission Sig: 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 Not Taking Historical ProviderMD Wayzata-3 Fatty Acids (FISH OIL) 435 MG CAPS Take 870 mg by mouth Daily. Taking Historical ProviderMD UNABLE TO FIND Med Name: Tonyba JsA Essential oil Forms: oral and topical Ingredients: Resin from Copaifera reticulata, officinalis, coriacea, and langsdorffii, -c aryophyllene Taking Historical ProviderMD UNABLE TO FIND Med Name: Deep Blue doTerra essential oil Form: topically use only Ingredients: [place], Camphor, Peppermint, Ylang Ylang, Helichrysum, Blue Tansy, Blue C hamomile, and Osmanthus Taking Historical ProviderMD UNABLE TO FIND Med Name: Serenity doTERRA essential oil Forms: Topical and inhalation Ingredients: Lavender Flower, Cedarwood, Ho Wood Coldfoot, Ylang Ylang Flower, Marjoram Coldfoot, R catalina Chamomile Flower, Vetiver Root, Vanilla Soto Absolute, [place] Taking Hist orical ProviderMD UNABLE TO FIND Med Name: Breath doTERRA essential oil Form: Topical Ingredients: Carmelina Coldfoot, Eucalyptus Coldfoot, Peppermint Plant, Melaleuca Coldfoot, Lemon Peel, Ca rdamom Seed, Ravintsara Coldfoot, Ravensara Coldfoot essential oils Taking Historical ProviderMD UNABLE TO FIND Med Name: Frankincense doTERRA essential oil Form: Topical, Oral (put in a capsule or in liquids to drink) Ingredients: Resin from Boswellia carterii, sacra, papyrifera, and frereana, a-pinene, limo jose, a-thujene Taking Historical ProviderMD UNABLE TO FIND Med Name: On Guard doTerra essential oil Form: topical, oral. Ingredients: Wild [place] Peel, Clove Hassell, Cinnamon Coldfoot, Cinnamon Bark, Eucalyptus Coldfoot, an d Ila Coldfoot/Flower essential oils. Taking Historical MD [place]ell UNABLE TO FIND Med Name: xEO Bereket [...] powerful antioxidant carotenoid* harvested from microalgae " Taking Historical MD [place]ell UNABLE TO FIND Med Name: [facility] Food nutrient complex doTerra product Instructions: take [...] diastase, glucoamylase, and peptidase, Peppermint, Roxana, and Brad, Made with sodium lauryl sulfate-free vegetable capsules Taking Historical ProviderMD UNABLE TO FIND Med Name: Alpha CRS+ [...] biloba, coenzyme Q10, quercetin, alpha-lipoic acid, and pjnyyr-[id number]), Peppermint , Roxana, and Brad, Made with sodium lauryl sulfate-free vegetable capsules Last Taking Historical ProviderMD Medication review performed and electronically signed by Laura Gonzalez, Artistic Associate 2018 12:12 Reviewed by Efrain Herrera [facility] 02/25/2019 12:56 Maynor Marshall MD - 02/25/2019 12:35 PM PDT Hospital Day: 2 DATE/TIME: 02/25/2019 12:35 63 y.o. year old male hospitalized with STEMI (ST elevation myocardial infarction) (HCC) wh ich is gradually worsening CURRENT INFUSIONS amiodarone 1 mg/min (02/25/19 0822) Followed by amiodarone CURRENT MEDICATIONS aspirin 81 mg Oral Daily verapamil 120 mg Oral Daily I personally reviewed the above medications. OBJECTIVE: Temp: 36.1 C (97 F) BP: 149/71 Pulse: 68 Resp: 19 SpO2: 97 % on Min/Max Temp past 24 hours:Temp Av.2 C (97.2 F) Min: 35.8 C (96.4 F) Max: 3 6.8 C (98.2 F) Intake/Output Summary (Last 24 hours) at 02/25/19 1235 Last data filed at 02/25/19 1201 Gross per 24 hour Intake 1740 ml Output 2275 ml Net -535 ml Wt. Admission: Weight: 94.9 kg (209 lb 3.5 oz) Wt. Current: Weight: 94 kg (207 lb 3.7 o z) General: alert, appears stated age and cooperative Heart: Regular rate and rhythm Lungs: clear Abdomen: abdomen is soft without significant tenderness, masses, organomegaly or guarding Recent Results (from the past 24 hour(s)) Extra Green Top Tube Result Value Ref Range Extra Green Top Tube Done Extra Lavender Top Tube Result Value Ref Range Extra Lavender Top Tube Done Extra Blue Top Tube Result Value Ref Range Extra Blue Top Tube Done Extra Plain Red Top Tube Result Value Ref Range Extra Plain Red Top Tube Done Extra Bradford Top Tube Result Value Ref Range Extra Bradford Top Tube Done Extra Green Top Tube Result Value Ref Range Extra Green Top Tube Done Extra Lavender Top Tube Result Value Ref Range Extra Lavender Top Tube Done POC ACT Result Value Ref Range Activated Clotting Time, POC 158 125 - 175 second(s) POC ACT Result Value Ref Range Activated Clotting Time, POC >400 (HH) 125 - 175 second(s) ECG 12 lead Result Value Ref Range VENTRICULAR RATE EKG 74 BPM ATRIAL RATE 74 BPM P-R INTERVAL 164 ms QRS DURATION 96 ms Q-T INTERVAL 446 ms Q-T INTERVAL (CORRECTED) 495 ms P WAVE AXIS 45 degrees QRS AXIS -6 degrees T AXIS 107 degrees INTERPRETATION TEXT Sinus rhythm with premature atrial complexes in a pattern of bigeminy Septal infarct , age undetermined Inferior infarct , age undetermined ST elevation, consider anterior injury or acute infarct ACUTE WI / STEMI T wave abnormality, consider lateral ischemia Nonspecific ST abnormality Inferior leads Abnormal ECG No previous ECGs available Confirmed by AXEL TONEY MD ([id number]) on 02/24/2019 5:47:08 PM Troponin I Result Value Ref Range Troponin I 1.22 (HH) <0.06 ng/mL Basic Metabolic Panel Result Value Ref Range Na 136 136 - 145 mmol/L K 3.7 3.4 - 5.1 mmol/L Cl 105 98 - 107 mmol/L CO2 24 20 - 31 mmol/L Anion Gap 7 3 - 16 mmol/L Glucose 148 (H) 60 - 106 mg/dL BUN 17 9 - 23 mg/dL Creatinine 0.81 0.70 - 1.30 mg/dL eGFR if not >60 >=60 mL/min/1.73m2 Ca 8.4 (L) 8.7 - 10.4 mg/dL BUN/Creatinine Ratio 21.0 CBC no Differential Result Value Ref Range WBC 8.0 4.0 - 11.0 K/uL RBC 4.32 4.30 - 5.70 M/uL Hemoglobin 13.8 13.5 - 18.0 g/dL Hematocrit 39.7 (L) 40.0 - 51.0 % MCV 91.9 83.0 - 101.0 fL MCH 31.9 28.0 - 35.0 pg MCHC 34.8 32.0 - 36.0 g/dL RDW-CV 12.3 <15.0 % RDW-SD 41.3 35.1 - 46.3 fL Platelet Count 163 140 - 440 K/uL MPV 9.7 6.5 - 12.4 fL % nRBC 0 0 - 2 per 100 WBC's Absolute nRBC 0.00 0.00 - 0.01 K/uL CK Total Result Value Ref Range CK TOTAL 214 (H) 46 - 171 U/L Troponin I Result Value Ref Range Troponin I 6.60 (HH) <0.06 ng/mL Lipid Panel Result Value Ref Range Triglycerides 115 <=150 mg/dL Cholesterol 158 <=200 mg/dL HDL 30 (L) 40 - 60 mg/dL Chol/HDL Ratio 5.3 LDL, Calculated 105 <=130 mg/dL Magnesium Result Value Ref Range Magnesium 1.8 1.6 - 2.6 mg/dL ECG 12 lead Result Value Ref Range INTERPRETATION TEXT Not Confirmed Recent Labs Lab 02/25/19 0408 02/24/19 1720 TROPONIN 6.60* 1.22* CK 214* -- ASSESSMENT AND PLAN: 1. NSVT post WI. 2. STEMI with rca stent 3. CAD with prior rca stent Load with Amiordarone. Pt intolerant of beta blockers. Will start Verapramil. Electronically Signed by: Maynor Agrawal MD [facility] 02/25/2019 12:35 [facility] documented in this enco unter Plan of Treatment Not on filedocumented as of this encounter Procedures + +--------+ + + + | Procedure Name | Priori | Date/Time | Associated Diagnosis | Comments | | | ty | | | | + +--------+ + + + | ECG 12 LEAD | Routin | 02/26/2019 | | Results for this | | | e | 5:58 AM | | procedure are in the | | | | PDT | | results section. | + +--------+ + + + | TROPONIN I | Routin | 02/26/2019 | | Results for this | | | e | 4:54 AM | | procedure are in the | | | | PDT | | results section. | + +--------+ + + + | MAGNESIUM | Routin | 02/26/2019 | | Results for this | | | e | 4:54 AM | | procedure are in the | | | | PDT | | results section. | + +--------+ + + + | BASIC METABOLIC | Routin | 02/26/2019 | | Results for this | | PANEL | e | 4:54 AM | | procedure are in the | | | | PDT | | results section. | + +--------+ + + + | EXTRA LAVENDER TOP | Routin | 02/26/2019 | | Results for this | | TUBE | e | 4:45 AM | | procedure are in the | | | | PDT | | results section. | + +--------+ + + + | ECG 12 LEAD | Routin | 02/25/2019 | | Results for this | | | e | 5:02 AM | | procedure are in the | | | | PDT | | results section. | + +--------+ + + + | LIPID PANEL | Routin | 02/25/2019 | | Results for this | | | e | 4:08 AM | | procedure are in the | | | | PDT | | results section. | + +--------+ + + + | TROPONIN I | Add-On | 02/25/2019 | | Results for this | | | | 4:08 AM | | procedure are in the | | | | PDT | | results section. | + +--------+ + + + | CBC NO DIFFERENTIAL | Routin | 02/25/2019 | | Results for this | | | e | 4:08 AM | | procedure are in the | | | | PDT | | results section. | + +--------+ + + + | MAGNESIUM | Routin | 02/25/2019 | | Results for this | | | e | 4:08 AM | | procedure are in the | | | | PDT | | results section. | + +--------+ + + + | CK TOTAL | Routin | 02/25/2019 | | Results for this | | | e | 4:08 AM | | procedure are in the | | | | PDT | | results section. | + +--------+ + + + | BASIC METABOLIC | Routin | 02/25/2019 | | Results for this | | PANEL | e | 4:08 AM | | procedure are in the | | | | PDT | | results section. | + +--------+ + + + | TROPONIN I | Routin | 02/24/2019 | | Results for this | | | e | 5:20 PM | | procedure are in the | | | | PDT | | results section. | + +--------+ + + + | ECG 12 LEAD | Routin | 02/24/2019 | | Results for this | | | e | 5:11 PM | | procedure are in the | | | | PDT | | results section. | + +--------+ + + + | CV LV | Routin | 02/24/2019 | | Results for this | | | e | 4:05 PM | | procedure are in the | | | | PDT | | results section. | + +--------+ + + + | CV COR ANGIO | Routin | 02/24/2019 | | Results for this | | | e | 4:05 PM | | procedure are in the | | | | PDT | | results section. | + +--------+ + + + | POC ACTIVATED | Routin | 02/24/2019 | | Results for this | | CLOTTING TIME ISTAT | e | 3:53 PM | | procedure are in the | | | | PDT | | results section. | + +--------+ + + + | POC ACTIVATED | Routin | 02/24/2019 | | Results for this | | CLOTTING TIME ISTAT | e | 3:40 PM | | procedure are in the | | | | PDT | | results section. | + +--------+ + + + | EXTRA BRADFORD TOP TUBE | Routin | 02/24/2019 | | Results for this | | | e | 3:00 PM | | procedure are in the | | | | PDT | | results section. | + +--------+ + + + | EXTRA PLAIN RED TOP | Routin | 02/24/2019 | | Results for this | | | e | 3:00 PM | | procedure are in the | | | | PDT | | results section. | + +--------+ + + + | EXTRA LAVENDER TOP | Routin | 02/24/2019 | | Results for this | | TUBE | e | 3:00 PM | | procedure are in the | | | | PDT | | results section. | + +--------+ + + + | EXTRA LAVENDER TOP | Routin | 02/24/2019 | | Results for this | | TUBE | e | 3:00 PM | | procedure are in the | | | | PDT | | results section. | + +--------+ + + + | EXTRA GREEN TOP TUBE | Routin | 02/24/2019 | | Results for this | | | e | 3:00 PM | | procedure are in the | | | | PDT | | results section. | + +--------+ + + + | EXTRA GREEN TOP TUBE | Routin | 02/24/2019 | | Results for this | | | e | 3:00 PM | | procedure are in the | | | | PDT | | results section. | + +--------+ + + + | EXTRA BLUE TOP TUBE | Routin | 02/24/2019 | | Results for this | | | e | 3:00 PM | | procedure are in the | | | | PDT | | results section. | + +--------+ + + + documented in this encounter Results ECG 12 lead (02/26/2019 5:58 AM PDT) + + + + + + | Component | Value | Ref Range | Performed | Pathologist | | | | | At | Signature | + + + + + + | VENTRICULAR | 61 | BPM | [facility] | | | RATE EKG | | | | | + + + + + + | ATRIAL RATE | 61 | BPM | [facility] | | + + + + + + | P-R | 180 | ms | [facility] | | | INTERVAL | | | | | + + + + + + | QRS | 98 | ms | [facility] | | | DURATION | | | | | + + + + + + | Q-T | 508 | ms | [facility] | | | INTERVAL | | | | | + + + + + + | Q-T | 511 | ms | [facility] | | | INTERVAL | | | | | | (CORRECTED) | | | | | + + + + + + | P WAVE AXIS | 53 | degrees | [facility] | | + + + + + + | QRS AXIS | -17 | degrees | [facility] | | + + + + + + | T AXIS | 103 | degrees | [facility] | | + + + + + + | INTERPRETAT | Normal sinus rhythmLong | | [facility] | | | ION TEXT | QTcSeptal infarct (cited | | | | | | on or before | | | | | | 24-FEB-2019)T wave | | | | | | abnormality, consider | | | | | | lateral ischemia or | | | | | | evolution of recent | | | | | | ischemic eventSerial | | | | | | changes of evolving | | | | | | Anteroseptal | | | | | | infarctAbnormal ECGWhen | | | | | | compared with ECG of | | | | | | 25-FEB-2019 05:02, | | | | | | (Unconfirmed)No | | | | | | significant change was | | | | | | foundConfirmed by | | | | | | AXEL TONEY MD ([id number]) | | | | | | on 02/26/2019 9:03:34 AM | | | | + + + + + + + + | Specimen | + + | | + + + + + | Narrative | Performed At | + + + | | | + + + + +---------+ + + | Performing | Address | City/State/Zipcode | Phone Number | | Organization | | | | + +---------+ + + | [facility] | | | | + +---------+ + + Basic Metabolic Panel (02/26/2019 4:54 AM PDT) + + + + + + | Component | Value | Ref Range | Performed | Pathologist | | | | | At | Signature | + + + + + + | Na | 138 | 136 - 145 | [facility] | | | | | mmol/L | [facility] | | | | | | [facility] | | | | | | [facility] - | | | | | | LABORATORY | | + + + + + + | K | 4.3 | 3.4 - 5.1 | [facility] | | | | | mmol/L | [facility] | | | | | | [facility] | | | | | | [facility] - | | | | | | LABORATORY | | + + + + + + | Cl | 105 | 98 - 107 mmol/L | [facility] | | | | | | [facility] | | | | | | [facility] | | | | | | [facility] - | | | | | | LABORATORY | | + + + + + + | CO2 | 27 | 20 - 31 mmol/L | [facility] | | | | | | [facility] | | | | | | [facility] | | [facility] | | | [facility] - | | | | | | LABORATORY | | + + + + + + | Anion Gap | 6 | 3 - 16 mmol/L | [facility] | | | | | | [facility] | | | | | | [facility] | | | | | | [facility] - | | | | | | LABORATORY | | + + + + + + | Glucose | 103 | 60 - 106 mg/dL | [facility] | | | | | | [facility] | | | | | | [facility] | | | | | | [facility] - | | | | | | LABORATORY | | + + + + + + | BUN | 15 | 9 - 23 mg/dL | [facility] | | | | | | [facility] | | | | | | [facility] | | | | | | [facility]ENTER - | | | | | | LABORATORY | | + + + + + + | Creatinine | 0.37 (L) | 0.70 - 1.30 | [facility] | | | | | mg/dL | [facility] | | | | | | [facility] | | | | | | CENTER - | | | | | | LABORATORY | | + + + + + + | eGFR if not | >60 | >=60 | [facility] | | | | | mL/min/1.73m2 | [facility] | | | [facility] | | | [facility] | | | | | | CENTER - | | | | | | LABORATORY | | + + + + + + | Calcium | 8.9 | 8.7 - 10.4 | [facility] | | | | | mg/dL | [facility] | | | | | | [facility] | | [facility] | | | CENTER - | | | | | | LABORATORY | | + + + + + + | BUN/Creatin | 40.5 | | [facility] | | | ine Ratio | | | [facility] | | | | | | MED[facility] | | | | | | CENTER - | | | | | | LABORATORY | | + + + + + + + + | Specimen | + + | Blood | + + + + + + + | Performing | Address | City/State/Zipcode | Phone Number | | Organization | | | | + + + + + | [facility] | [address] | [place] | [phone] | | [facility] | | [address] | | | - LABORATORY | | | | + + + + + Magnesium (02/26/2019 4:54 AM PDT) + +-------+ + + + | Component | Value | Ref Range | Performed | Pathologist | | | | | At | Signature | + +-------+ + + + | Magnesium | 1.9 | 1.6 - 2.6 mg/dL | [facility] | | | | | | [facility] | | | | | | [facility] | | | | | | CENTER - | | | | | | LABORATORY | | + +-------+ + + + + + | Specimen | + + | Blood | + + + + + + + | Performing | Address | City/State/Zipcode | Phone Number | | Organization | | | | + + + + + | [facility] | [address] | [place] | [phone] | | [facility] | | [address] | | | - LABORATORY | | | | + + + + + Troponin I (02/26/2019 4:54 AM PDT) + + + + + + | Component | Value | Ref Range | Performed | Pathologist | | | | | At | Signature | + + + + + + | Troponin I | 1.66 ()Comment: New | <0.06 ng/mL | [facility] | | | | method in use as of | | [facility] | | | | January 25, 2019. Check | | MEDICAL | | | | reference range for | | CENTER - | | | | changes.Some analytes | | LABORATORY | | | | show significant | | | | | | variation from the | | | | | | previous method.It may | | | | | | be necessary to set a | | | | | | new baseline for this | | | | | | analyte. Critical Result | | | | | | called to and read back | | | | | | by cindy brush RN on | | | | | | 02/26/2019 at 5:58 by | | | | | | Jordy Lynn. | | | | + + + + + + + + | Specimen | + + | Blood | + + + + + + + | Performing | Address | City/State/Zipcode | Phone Number | | Organization | | | | + + + + + | [facility] | [address] | [place] | [phone] | | [facility] | | [address] | | | - LABORATORY | | | | + + + + + Extra Lavender Top Tube (02/26/2019 4:45 AM PDT) + +-------+ + + + | Component | Value | Ref Range | Performed | Pathologist | | | | | At | Signature | + +-------+ + + + | Extra | Done | | [facility] | | | Lavender | | | [facility] | | | Top Tube | | | MEDICAL | | | | | | CENTER - | | | | | | LABORATORY | | + +-------+ + + + + + | Specimen | + + | Blood | + + + + + + + | Performing | Address | City/State/Zipcode | Phone Number | | Organization | | | | + + + + + | [facility] | [address] | [place] | [phone] | | [facility] | | [address] | | | - LABORATORY | | | | + + + + + ECG 12 lead (02/25/2019 5:02 AM PDT) + + + + + + | Component | Value | Ref Range | Performed | Pathologist | | | | | At | Signature | + + + + + + | VENTRICULAR | 69 | BPM | [facility] | | | RATE EKG | | | | | + + + + + + | ATRIAL RATE | 69 | BPM | [facility] | | + + + + + + | P-R | 168 | ms | [facility] | | | INTERVAL | | | | | + + + + + + | QRS | 96 | ms | [facility] | | | DURATION | | | | | + + + + + + | Q-T | 438 | ms | [facility] | | | INTERVAL | | | | | + + + + + + | Q-T | 469 | ms | [facility] | | | INTERVAL | | | | | | (CORRECTED) | | | | | + + + + + + | P WAVE AXIS | 62 | degrees | [facility] | | + + + + + + | QRS AXIS | -19 | degrees | [facility] | | + + + + + + | T AXIS | 137 | degrees | [facility] | | + + + + + + | INTERPRETAT | Normal sinus rhythmLong | | [facility] | | | ION TEXT | QTcSeptal infarct (cited | | | | | | on or before | | | | | | 24-FEB-2019)T wave | | | | | | abnormality, consider | | | | | | lateral ischemia or | | | | | | evolving ischemic | | | | | | eventAbnormal ECGWhen | | | | | | compared with ECG of | | | | | | 24-FEB-2019 | | | | | | 17:11,premature atrial | | | | | | complexes are no longer | | | | | | presentSerial changes of | | | | | | Anteroseptal infarct | | | | | | presentCriteria for | | | | | | Inferior infarct , age | | | | | | undetermined are no | | | | | | longer presentConfirmed | | | | | | by AXEL TONEY MD | | | | | | ([id number]) on 02/26/2019 | | | | | | 9:01:47 AM | | | | + + + + + + + + | Specimen | + + | | + + + + + | Narrative | Performed At | + + + | | | + + + + +---------+ + + | Performing | Address | City/State/Zipcode | Phone Number | | Organization | | | | + +---------+ + + | [facility] | | | | + +---------+ + + Magnesium (02/25/2019 4:08 AM PDT) + +-------+ + + + | Component | Value | Ref Range | Performed | Pathologist | | | | | At | Signature | + +-------+ + + + | Magnesium | 1.8 | 1.6 - 2.6 mg/dL | [facility] | | | | | | [facility] | | | | | | MEDICAL | | | | | | CENTER - | | | | | | LABORATORY | | + +-------+ + + + + + | Specimen | + + | Blood | + + + + + + + | Performing | Address | City/State/Zipcode | Phone Number | | Organization | | | | + + + + + | [facility] | [address] | [place] | [phone] | | [facility] | | [address] | | | - LABORATORY | | | | + + + + + Lipid Panel (02/25/2019 4:08 AM PDT) + +--------+ + + + | Component | Value | Ref Range | Performed | Pathologist | | | | | At | Signature | + +--------+ + + + | Triglycerid | 115 | <=150 mg/dL | [facility] | | | es | | | [facility] | | | | | | MEDICAL | | | | | | CENTER - | | | | | | LABORATORY | | + +--------+ + + + | Cholesterol | 158 | <=200 mg/dL | [facility] | | | | | | [facility] | | | | | | [facility] | | | | | | CENTER - | | | | | | LABORATORY | | + +--------+ + + + | HDL | 30 (L) | 40 - 60 mg/dL | [facility] | | | | | | [facility] | | | | | | MEDICAL | | | | | | CENTER - | | | | | | LABORATORY | | + +--------+ + + + | Chol/HDL | 5.3 | | [facility] | | | Ratio | | | [facility] | | | | | | MEDICAL | | | | | | CENTER - | | | | | | LABORATORY | | + +--------+ + + + | LDL, | 105 | <=130 mg/dL | [facility] | | | Calculated | | | [facility] | | | | | | MEDICAL | | | | | | CENTER - | | | | | | LABORATORY | | + +--------+ + + + + + | Specimen | + + | Blood | + + + + + + + | Performing | Address | City/State/Zipcode | Phone Number | | Organization | | | | + + + + + | [facility] | [address] | [place] | [phone] | | [facility] | | [address] | | | - LABORATORY | | | | + + + + + Troponin I (02/25/2019 4:08 AM PDT) + + + + + + | Component | Value | Ref Range | Performed | Pathologist | | | | | At | Signature | + + + + + + | Troponin I | 6.60 ()Comment: New | <0.06 ng/mL | [facility] | | | | method in use as of | | [facility] | | | | January 25, 2019. Check | | MEDICAL | | | | reference range for | | CENTER - | | | | changes.Some analytes | | LABORATORY | | | | show significant | | | | | | variation from the | | | | | | previous method.It may | | | | | | be necessary to set a | | | | | | new baseline for this | | | | | | analyte. Critical Result | | | | | | called to and read back | | | | | | by angelo brush RN on | | | | | | 02/25/2019 at 6:12 by | | | | | | Jordy Lynn. | | | | + + + + + + + + | Specimen | + + | Blood | + + + + + + + | Performing | Address | City/State/Zipcode | Phone Number | | Organization | | | | + + + + + | [facility] | [address] | [place] | [phone] | | [facility] | | [address] | | | - LABORATORY | | | | + + + + + CK Total (02/25/2019 4:08 AM PDT) + +---------+ + + + | Component | Value | Ref Range | Performed | Pathologist | | | | | At | Signature | + +---------+ + + + | CK TOTAL | 214 (H) | 46 - 171 U/L | [facility] | | | | | | [facility] | | | | | | MEDICAL | | | | | | CENTER - | | | | | | LABORATORY | | + +---------+ + + + + + | Specimen | + + | Blood | + + + + + + + | Performing | Address | City/State/Zipcode | Phone Number | | Organization | | | | + + + + + | [facility] | [address] | [place] | [phone] | | [facility] | | [address] | | | - LABORATORY | | | | + + + + + CBC no Differential (02/25/2019 4:08 AM PDT) + + + + + + | Component | Value | Ref Range | Performed | Pathologist | | | | | At | Signature | + + + + + + | WBC | 8.0 | 4.0 - 11.0 K/uL | [facility] | | | | | | [facility] | | | | | | MEDICAL | | | | | | CENTER - | | | | | | LABORATORY | | + + + + + + | RBC | 4.32 | 4.30 - 5.70 | [facility] | | | | | M/uL | [facility] | | | | | | MEDICAL | | | | | | CENTER - | | | | | | LABORATORY | | + + + + + + | Hemoglobin | 13.8 | 13.5 - 18.0 | [facility] | | | | | g/dL | [facility] | | | | | | MEDICAL | | | | | | CENTER - | | | | | | LABORATORY | | + + + + + + | Hematocrit | 39.7 (L) | 40.0 - 51.0 % | [facility] | | | | | | [facility] | | | | | | MEDICAL | | | | | | CENTER - | | | | | | LABORATORY | | + + + + + + | MCV | 91.9 | 83.0 - 101.0 fL | [facility] | | | | | | [facility] | | | | | | MEDICAL | | | | | | CENTER - | | | | | | LABORATORY | | + + + + + + | MCH | 31.9 | 28.0 - 35.0 pg | [facility] | | | | | | [facility] | | | | | | MEDICAL | | | | | | CENTER - | | | | | | LABORATORY | | + + + + + + | MCHC | 34.8 | 32.0 - 36.0 | [facility] | | | | | g/dL | [facility] | | | | | | MEDICAL | | | | | | CENTER - | | | | | | LABORATORY | | + + + + + + | RDW-CV | 12.3 | <15.0 % | [facility] | | | | | | [facility] | | | | | | MEDICAL | | | | | | CENTER - | | | | | | LABORATORY | | + + + + + + | RDW-SD | 41.3 | 35.1 - 46.3 fL | [facility] | | | | | | [facility] | | | | | | MEDICAL | | | | | | CENTER - | | | | | | LABORATORY | | + + + + + + | Platelet | 163 | 140 - 440 K/uL | [facility] | | | Count | | | [facility] | | | | | | MEDICAL | | | | | | CENTER - | | | | | | LABORATORY | | + + + + + + | MPV | 9.7 | 6.5 - 12.4 fL | [facility] | | | | | | [facility] | | | | | | MEDICAL | | | | | | CENTER - | | | | | | LABORATORY | | + + + + + + | % nRBC | 0 | 0 - 2 per 100 | [facility] | | | | | WBC's | [facility] | | | | | | MEDICAL | | | | | | CENTER - | | | | | | LABORATORY | | + + + + + + | Absolute | 0.00 | 0.00 - 0.01 | [facility] | | | nRBC | | K/uL | [facility] | | | | | | [facility] | | | | | | CENTER - | | | | | | LABORATORY | | + + + + + + + + | Specimen | + + | Blood | + + + + + + + | Performing | Address | City/State/Zipcode | Phone Number | | Organization | | | | + + + + + | [facility] | [address] | [place] | [phone] | | [facility] | | [address] | | | - LABORATORY | | | | + + + + + Basic Metabolic Panel (02/25/2019 4:08 AM PDT) + +---------+ + + + | Component | Value | Ref Range | Performed | Pathologist | | | | | At | Signature | + +---------+ + + + | Na | 136 | 136 - 145 | [facility] | | | | | mmol/L | [facility] | | | | | | MEDICAL | | | | | | CENTER - | | | | | | LABORATORY | | + +---------+ + + + | K | 3.7 | 3.4 - 5.1 | [facility] | | | | | mmol/L | [facility] | | | | | | MEDICAL | | | | | | CENTER - | | | | | | LABORATORY | | + +---------+ + + + | Cl | 105 | 98 - 107 mmol/L | [facility] | | | | | | [facility] | | | | | | MEDICAL | | | | | | CENTER - | | | | | | LABORATORY | | + +---------+ + + + | CO2 | 24 | 20 - 31 mmol/L | [facility] | | | | | | [facility] | | | | | | MEDICAL | | | | | | CENTER - | | | | | | LABORATORY | | + +---------+ + + + | Anion Gap | 7 | 3 - 16 mmol/L | [facility] | | | | | | [facility] | | | | | | MEDICAL | | | | | | CENTER - | | | | | | LABORATORY | | + +---------+ + + + | Glucose | 148 (H) | 60 - 106 mg/dL | [facility] | | | | | | [facility] | | | | | | MEDICAL | | | | | | CENTER - | | | | | | LABORATORY | | + +---------+ + + + | BUN | 17 | 9 - 23 mg/dL | [facility] | | | | | | [facility] | | | | | | MEDICAL | | | | | | CENTER - | | | | | | LABORATORY | | + +---------+ + + + | Creatinine | 0.81 | 0.70 - 1.30 | [facility] | | | | | mg/dL | [facility] | | | | | | MEDICAL | | | | | | CENTER - | | | | | | LABORATORY | | + +---------+ + + + | eGFR if not | >60 | >=60 | [facility] | | | | | mL/min/1.73m2 | [facility] | | | [facility] | | | MEDICAL | | | | | | CENTER - | | | | | | LABORATORY | | + +---------+ + + + | Calcium | 8.4 (L) | 8.7 - 10.4 | [facility] | | | | | mg/dL | [facility] | | | | | | MEDICAL | | | | | | CENTER - | | | | | | LABORATORY | | + +---------+ + + + | BUN/Creatin | 21.0 | | [facility] | | | ine Ratio | | | [facility] | | | | | | MEDICAL | | | | | | CENTER - | | | | | | LABORATORY | | + +---------+ + + + + + | Specimen | + + | Blood | + + + + + + + | Performing | Address | City/State/Zipcode | Phone Number | | Organization | | | | + + + + + | [facility] | [address] | [place] | [phone] | | [facility] | | [address] | | | - LABORATORY | | | | + + + + + Troponin I (02/24/2019 5:20 PM PDT) + + + + + + | Component | Value | Ref Range | Performed | Pathologist | | | | | At | Signature | + + + + + + | Troponin I | 1.22 ()Comment: New | <0.06 ng/mL | [facility] | | | | method in use as of | | [facility] | | | | January 25, 2019. Check | | MEDICAL | | | | reference range for | | CENTER - | | | | changes.Some analytes | | LABORATORY | | | | show significant | | | | | | variation from the | | | | | | previous method.It may | | | | | | be necessary to set a | | | | | | new baseline for this | | | | | | analyte. Critical Result | | | | | | called to and read back | | | | | | by Master Rose RN | | | | | | on 02/24/2019 at 17:54 | | | | | | by María Murray. | | | | + + + + + + + + | Specimen | + + | Blood | + + + + + + + | Performing | Address | City/State/Zipcode | Phone Number | | Organization | | | | + + + + + | [facility] | [address] | [place] | [phone] | | [facility] | | [address] | | | - LABORATORY | | | | + + + + + ECG 12 lead (02/24/2019 5:11 PM PDT) + + + + + + | Component | Value | Ref Range | Performed | Pathologist | | | | | At | Signature | + + + + + + | VENTRICULAR | 74 | BPM | [facility] | | | RATE EKG | | | | | + + + + + + | ATRIAL RATE | 74 | BPM | [facility] | | + + + + + + | P-R | 164 | ms | [facility] | | | INTERVAL | | | | | + + + + + + | QRS | 96 | ms | [facility] | | | DURATION | | | | | + + + + + + | Q-T | 446 | ms | [facility] | | | INTERVAL | | | | | + + + + + + | Q-T | 495 | ms | [facility] | | | INTERVAL | | | | | | (CORRECTED) | | | | | + + + + + + | P WAVE AXIS | 45 | degrees | [facility] | | + + + + + + | QRS AXIS | -6 | degrees | [facility] | | + + + + + + | T AXIS | 107 | degrees | [facility] | | + + + + + + | INTERPRETAT | Sinus rhythm with | | [facility] | | | ION TEXT | premature atrial | | | | | | complexes in a pattern | | | | | | of bigeminySeptal | | | | | | infarct , age | | | | | | undeterminedInferior | | | | | | infarct , age | | | | | | undeterminedST | | | | | | elevation, consider | | | | | | anterior injury or acute | | | | | | infarct ACUTE [place] / | | | | | | STEMI T wave | | | | | | abnormality, consider | | | | | | lateral | | | | | | ischemiaNonspecific ST | | | | | | abnormality Inferior | | | | | | leadsAbnormal ECGNo | | | | | | previous ECGs | | | | | | availableConfirmed by | | | | | | AXEL TONEY MD ([id number]) | | | | | | on 02/24/2019 5:47:08 PM | | | | + + + + + + + + | Specimen | + + | | + + + + + | Narrative | Performed At | + + + | | | + + + + +---------+ + + | Performing | Address | City/State/Zipcode | Phone Number | | Organization | | | | + +---------+ + + | [facility] | | | | + +---------+ + + CV CARDIAC PROCEDURE (02/24/2019 4:05 PM PDT) + +-------+ + + + | Component | Value | Ref Range | Performed | Pathologist | | | | | At | Signature | + +-------+ + + + | LVEF-LVGRAM | 80 | % | [facility] | | | CARDIAC | | | | | | CATH | | | | | + +-------+ + + + + + | Specimen | + + | | + + + + + | Narrative | Performed At | + + + | Patient | [facility] | | admitted with a STEMI. Patient has a history of prior myocardial | | | infarction treated with acute intervention and stent to the RCA. | | | This was acute chest pains with ST elevation. Patient brought the | | | cardiac catheterization lab. Radial approach was used. Patient is | | | found to have a left dominant system. There is moderate irregularity | | | in the LAD system with mild narrowing in the proximal and mid | | | segment. A nondominant RCA is totally occluded with resolution of | | | his pain after opening the RCA. A 2.5 stent was used. This was a | | | 2.5 x 16 Synergy which was postdilated to 3.0. Moderate sedation was | | | used. Sedation achieved with administration of medications by Cath | | | Lab nurse under my supervision. Postprocedure radial band was used. | | | For additional detail as to the procedures performed and the equipment | | | that was utilized, please refer to the Procedure Log. | | | | | |Postprocedure radial band was used. | | | | | | | | | | | |For additional detail as to the procedures performed and the equipment | | |that was utilized, please refer to the Procedure Log. | | | | | | | [...] | | | + + + + +---------+ + + | Performing | Address | City/State[facility] | Phone Number | | Organization | | | | + +---------+ + + | [facility] | | | | + +---------+ + + POC ACT (02/24/2019 3:53 PM PDT) + + + + + + | Component | Value | Ref Range | Performed | Pathologist | | | | | At | Signature | + + + + + + | Activated | >400 (HH) | 125 - 175 | [facility] | | | Clotting | | second(s) | [facility] | | | Time, POC | | | MEDICAL | | | | | | CENTER - | | | | | | LABORATORY | | + + + + + + + + | Specimen | + + | | + + + + + + + | Performing | Address | City/State/Zipcode | Phone Number | | Organization | | | | + + + + + | [facility] | [address] | [place] | [phone] | | [facility] | | [address] | | | - LABORATORY | | | | + + + + + POC ACT (02/24/2019 3:40 PM PDT) + +-------+ + + + | Component | Value | Ref Range | Performed | Pathologist | | | | | At | Signature | + +-------+ + + + | Activated | 158 | 125 - 175 | [facility] | | | Clotting | | second(s) | [facility] | | | Time, POC | | | MEDICAL | | | | | | CENTER - | | | | | | LABORATORY | | + +-------+ + + + + + | Specimen | + + | | + + + + + + + | Performing | Address | City/State/Zipcode | Phone Number | | Organization | | | | + + + + + | [facility] | [address] | [place] | [phone] | | [facility] | | [address] | | | - LABORATORY | | | | + + + + + Extra Lavender Top Tube (02/24/2019 3:00 PM PDT) + +-------+ + + + | Component | Value | Ref Range | Performed | Pathologist | | | | | At | Signature | + +-------+ + + + | Extra | Done | | [facility] | | | Lavender | | | [facility] | | | Top Tube | | | MEDICAL | | | | | | CENTER - | | | | | | LABORATORY | | + +-------+ + + + + + | Specimen | + + | Blood | + + + + + + + | Performing | Address | City/State/Zipcode | Phone Number | | Organization | | | | + + + + + | [facility] | [address] | [place] | [phone] | | [facility] | | [address] | | | - LABORATORY | | | | + + + + + Extra Green Top Tube (02/24/2019 3:00 PM PDT) + +-------+ + + + | Component | Value | Ref Range | Performed | Pathologist | | | | | At | Signature | + +-------+ + + + | Extra Green | Done | | [facility] | | | Top Tube | | | [facility] | | | | | | MEDICAL | | | | | | CENTER - | | | | | | LABORATORY | | + +-------+ + + + + + | Specimen | + + | Blood | + + + + + + + | Performing | Address | City/State/Zipcode | Phone Number | | Organization | | | | + + + + + | [facility] | [address] | [place] | [phone] | | [facility] | | [address] | | | - LABORATORY | | | | + + + + + Extra Bradford Top Tube (02/24/2019 3:00 PM PDT) + +-------+ + + + | Component | Value | Ref Range | Performed | Pathologist | | | | | At | Signature | + +-------+ + + + | Extra Bradford | Done | | [facility] | | | Top Tube | | | [facility] | | | | | | MEDICAL | | | | | | CENTER - | | | | | | LABORATORY | | + +-------+ + + + + + | Specimen | + + | Blood | + + + + + + + | Performing | Address | City/State/Zipcode | Phone Number | | Organization | | | | + + + + + | [facility] | [address] | [place] | [phone] | | [facility] | | [id number] | | | - LABORATORY | | | | + + + + + Extra Plain Red Top Tube (02/24/2019 3:00 PM PDT) + +-------+ + + + | Component | Value | Ref Range | Performed | Pathologist | | | | | At | Signature | + +-------+ + + + | Extra Plain | Done | | [facility] | | | Red Top | | | [facility] | | | Tube | | | MEDICAL | | | | | | CENTER - | | | | | | LABORATORY | | + +-------+ + + + + + | Specimen | + + | Blood | + + + + + + + | Performing | Address | City/State/Zipcode | Phone Number | | Organization | | | | + + + + + | [facility] | [address] | [place], [place] | [phone] | | [facility] | | [id number] | | | - LABORATORY | | | | + + + + + Extra Blue Top Tube (02/24/2019 3:00 PM PDT) + +-------+ + + + | Component | Value | Ref Range | Performed | Pathologist | | | | | At | Signature | + +-------+ + + + | Extra Blue | Done | | [facility] | | | Top Tube | | | [facility] | | | | | | MEDICAL | | | | | | CENTER - | | | | | | LABORATORY | | + +-------+ + + + + + | Specimen | + + | Blood | + + + + + + + | Performing | Address | City/State/Zipcode | Phone Number | | Organization | | | | + + + + + | [facility] | [address] | [place] | [phone] | | [facility] | | [address] | | | - LABORATORY | | | | + + + + + Extra Lavender Top Tube (02/24/2019 3:00 PM PDT) + +-------+ + + + | Component | Value | Ref Range | Performed | Pathologist | | | | | At | Signature | + +-------+ + + + | Extra | Done | | [facility] | | | Lavender | | | [facility] | | | Top Tube | | | MEDICAL | | | | | | CENTER - | | | | | | LABORATORY | | + +-------+ + + + + + | Specimen | + + | Blood | + + + + + + + | Performing | Address | City/State/Zipcode | Phone Number | | Organization | | | | + + + + + | [facility] | [address] | [place] | [phone] | | [facility] | | [address] | | | - LABORATORY | | | | + + + + + Extra Green Top Tube (02/24/2019 3:00 PM PDT) + +-------+ + + + | Component | Value | Ref Range | Performed | Pathologist | | | | | At | Signature | + +-------+ + + + | Extra Green | Done | | [facility] | | | Top Tube | | | [facility] | | | | | | MEDICAL | | | | | | CENTER - | | | | | | LABORATORY | | + +-------+ + + + + + | Specimen | + + | Blood | + + + + + + + | Performing | Address | City/State/Zipcode | Phone Number | | Organization | | | | + + + + + | [facility] | [address] | [place] | [phone] | | [facility] | | [address] | | | - LABORATORY | | | | + + + + + documented in this encounter Visit Diagnoses + + | Diagnosis | + + | ST elevation myocardial infarction involving right coronary artery (HCC) Acute | | myocardial infarction of inferoposterior wall, initial episode of care | + + documented in this encounter Administered Medications + +--------+---------+------+------+------+ | Medication Order | MAR | Action | Dose | Rate | Site | | | Action | Date | | | | + +--------+---------+------+------+------+ + +---+ | acetaminophen (TYLENOL) tablet | | | 650 mg 650 mg, Oral, EVERY 6 | | | HOURS PRN, Pain, Fever, Starting | | | Wed02/24/19 at 1658, | | | Post-op/Phase II | | + +---+ | | | + +---+ | aluminum & magnesium | | | hydroxide-simethicone (MAALOX | | | PLUS REGULAR STRENGTH) 200-200-20 | | | mg/5 mL suspension 30 mL 30 mL, | | | Oral, EVERY 4 HOURS PRN, | | | Indigestion, Starting Wed02/24/19 | | | at 1658, Robert bliss., | | | Post-op/Phase II | | + +---+ | | | + +---+ + +-------+ +--------+---+---+ | amiodarone (PACERONE) tablet | Given | 02/27/20 | 200 mg | | | | 200 mg 200 mg, Oral, 2 TIMES | | 19 9:31 | | | | | DAILY, First dose on Wed02/26/19 | | AM PDT | | | | | at 0900 | | | | | | + +-------+ +--------+---+---+ +---+---+ | | | +---+---+ + +-------+ +--------+---+---+ | amiodarone in dextrose | Given | 02/25/20 | 300 mg | | | | (NEXTERONE) 150 mg/100 mL bolus | | 19 3:38 | | | | | Administer over 10 Minutes, ONCE | | PM PDT | | | | | PRN, Starting 02/24/19 at | | | | | | | 1538, Intra-op | | | | | | + +-------+ +--------+---+---+ +---+---+ | | | +---+---+ + +-------+ +-------+---+---+ | aspirin chewable tablet 81 mg | Given | 02/27/20 | 81 mg | | | | 81 mg, Oral, DAILY, First dose on | | 19 8:24 | | | | | 02/25/19 at 0900, Do not give | | AM PDT | | | | | if already taken today., | | | | | | | Post-op/Phase II | | | | | | + +-------+ +-------+---+---+ +-------+ +-------+---+---+ | Given | 02/26/20 | 81 mg | | | | | 19 8:05 | | | | | | AM PDT | | | | +-------+ +-------+---+---+ +---+---+ | | | +---+---+ + +-------+ +-------+---+---+ | clopidogrel (PLAVIX) tablet 75 | Given | 02/27/20 | 75 mg | | | | mg 75 mg, Oral, DAILY, First | | 19 8:24 | | | | | dose on 02/25/19 at 1300 | | AM PDT | | | | + +-------+ +-------+---+---+ +-------+ +-------+---+---+ | Given | 02/26/20 | 75 mg | | | | | 19 1:10 | | | | | | PM PDT | | | | +-------+ +-------+---+---+ +---+---+ | | | +---+---+ + +-------+ +--------+---+---+ | fentaNYL (PF) injection ONCE | Given | 02/25/20 | 50 mcg | | | | PRN, Starting 02/24/19 at | | 19 3:16 | | | | | 1516, Intra-op | | PM PDT | | | | + +-------+ +--------+---+---+ +---+---+ | | | +---+---+ + +-------+ +--------+---+---+ | heparin 1,000 units/mL | Given | 02/25/20 | 5,000 | | | | injection ONCE PRN, Starting Fri | | 19 3:42 | Units | | | | 02/24/19 at 1512, Intra-op | | PM PDT | | | | + +-------+ +--------+---+---+ +-------+ +--------+---+---+ | Given | 02/25/20 | 5,000 | | | | | 19 3:12 | Units | | | | | PM PDT | | | | +-------+ +--------+---+---+ +---+---+ | | | +---+---+ + +-------+ +--------+---+---+ | iohexol (OMNIPAQUE 350) 350 | Given | 02/25/20 | 95 mLs | | | | mg/mL injection ONCE PRN, | | 19 3:55 | | | | | Starting 02/24/19 at 1555, | | PM PDT | | | | | Intra-op | | | | | | + +-------+ +--------+---+---+ + +---+ | | | + +---+ | lidocaine 1%-EPINEPHrine | | | 1:100,000 injection 5 mL 5 mL, | | | Infiltration, ONCE PRN, for | | | oozing at cardiac cath site, | | | Starting Wed02/24/19 at 1658, For | | | 1 dose, For continued oozing | | | after sheath removal despite | | | pressure dressing and manual | | | pressure. Inject to affected area | | | x 1 followed by 10 minutes of | | | manual compression., | | | Post-op/Phase II | | + +---+ | | | + +---+ + +-------+ +------+---+ + | lidocaine buffered 0.9% | Given | 02/25/20 | 1 mL | | Surgical | | injection ONCE PRN, Starting Wed | | 19 3:12 | | | Site | | 02/24/19 at 1512, Intra-op | | PM PDT | | | | + +-------+ +------+---+ + +---+---+ | | | +---+---+ + +-------+ +--------+---+---+ | LORazepam (ATIVAN) 2 mg/mL | Given | 02/26/20 | 0.5 mg | | | | injection 0.5 mg 0.5 mg, | | 19 10:07 | | | | | Intravenous, EVERY 4 HOURS PRN, | | PM PDT | | | | | Anxiety, Insomnia, Starting Fri | | | | | | | 02/24/19 at 1658, Post-op/Phase II | | | | | | + +-------+ +--------+---+---+ +---+---+ | | | +---+---+ + +-------+ +------+---+---+ | metoprolol tartrate (LOPRESSOR) | Given | 02/25/20 | 5 mg | | | | injection ONCE PRN, Starting | | 19 3:33 | | | | | 02/24/19 at 1513, Intra-op | | PM PDT | | | | + +-------+ +------+---+---+ +-------+ +------+---+---+ | Given | 02/25/20 | 5 mg | | | | | 19 3:13 | | | | | | PM PDT | | | | +-------+ +------+---+---+ +---+---+ | | | +---+---+ + +-------+ +------+---+---+ | midazolam (VERSED) 1 mg/mL | Given | 02/25/20 | 1 mg | | | | injection ONCE PRN, Starting Fri | | 19 3:16 | | | | | 02/24/19 at 1516, Intra-op | | PM PDT | | | | + +-------+ +------+---+---+ +---+---+ | | | +---+---+ + +-------+ +---------+---+---+ | niCARdipine in dextrose | Given | 02/25/20 | 400 mcg | | | | (CARDENE) 0.2 mg/ml syringe ONCE | | 19 3:12 | | | | | PRN, Starting Wed02/24/19 at | | PM PDT | | | | | 1512, Intra-op | | | | | | + +-------+ +---------+---+---+ + +---+ | | | + +---+ | nitroglycerin (NITROSTAT) SL | | | tablet 0.4 mg 0.4 mg, | | | Sublingual, EVERY 5 MIN PRN, | | | Chest pain, Starting Wed02/24/19 | | | at 1658, May give up to 3 doses. | | | Notify physician after 2nd dose | | | given. Hold for SBP<100, | | | Post-op/Phase II | | + +---+ | | | + +---+ + +-------+ +---------+---+---+ | nitroglycerin 100 mcg/mL | Given | 02/25/20 | 500 mcg | | | | syringe ONCE PRN, Starting Fri | | 19 3:34 | | | | | 02/24/19 at 1513, Intra-op | | PM PDT | | | | + +-------+ +---------+---+---+ +-------+ +---------+---+---+ | Given | 02/25/20 | 300 mcg | | | | | 19 3:13 | | | | | | PM PDT | | | | +-------+ +---------+---+---+ +---+---+ | | | +---+---+ + +-------+ +--------+---+---+ | ticagrelor (BRILINTA) tablet | Given | 02/25/20 | 180 mg | | | | ONCE PRN, Starting 02/24/19 at | | 19 3:11 | | | | | 1511, Intra-op | | PM PDT | | | | + +-------+ +--------+---+---+ +---+---+ | | | +---+---+ + +-------+ +--------+---+---+ | verapamil (VERELAN) SR capsule | Given | 02/27/20 | 120 mg | | | | 120 mg 120 mg, Oral, DAILY, | | 19 8:24 | | | | | First dose on 02/25/19 at 1300 | | AM PDT | | | | + +-------+ +--------+---+---+ +-------+ +--------+---+---+ | Given | 02/26/20 | 120 mg | | | | | 19 1:10 | | | | | | PM PDT | | | | +-------+ +--------+---+---+ + +---+ | | | + +---+ | zolpidem (AMBIEN) tablet 5 mg | | | 5 mg, Oral, NIGHTLY PRN, MAY | | | REPEAT X 1, Insomnia, Starting | | | 02/24/19 at 1658, Do not | | | repeat dose if patient > 65years | | | of age, Post-op/Phase II | | + +---+ | | | + +---+ documented in this encounter
--- OUTSIDE RECORDS SUMMARY | ~2019-12-14 | XMS | Encounter Summary ---
Demographics + + + | Address | [address] | | | [place] [address] | + + + | Home Phone | | + + + | Preferred Language | Unknown | + + + | Marital Status | | + + + | Episcopalian Affiliation | CHR | + + + | Race | White | + + + | Ethnic Group | Not or | + + + Author + + + | Author | [facility] | + + + | Organization | [facility] | + + + | Address | Unknown | + + + | Phone | Unavailable | + + + Support + + + + + | Name | Relationship | Address | Phone | + + + + + | Adilene Morin | ECON | [address] | | | | | [place] [address] | | + + + + + Care Team Providers + +------+ + | Care Snaker Driving Horses Name | Role | Phone | + +------+ + PCP | Unavailable | + +------+ + Encounter Details +--------+ + + + + | Date | Type | Department | Care Team | Description | +--------+ + + + + | 10/14/ | Etl Consultant | Urology Fertility | Fabrizio Gu MD | Azoospermia (Primary | | 2006 | | [address] | | Dx); Unspecified | | | | Mailcode: [id number] | | Male Infertility | | | | [facility] | | | | | | and Healing, | | | | | | Building | | | | | | Floor [place], [place] | | | | | | [address] | | | | | | [phone] | | | +--------+ + + + [...] as of this encounter Plan of Treatment + +------+--------+ + + | Name | Type | Priori | Associated Diagnoses | Order Schedule | | | | ty | | | + +------+--------+ + + | LAB OTHER | Lab | Routin | Unspecified Male | Ordered: 10/14/2007 | | | | e | Infertility | | + +------+--------+ + + documented as of this encounter Visit Diagnoses + + | Diagnosis | + + | Azoospermia - Primary | + + | Male infertility, unspecified | + + documented in this encounter"
--- OUTSIDE RECORDS SUMMARY | ~2019-12-14 | XMS | Encounter Summary ---
Demographics + + + | Address | [address] | | | [place] [address] | + + + | Home Phone | | + + + | Preferred Language | Unknown | + + + | Marital Status | | + + + | Bahai Affiliation | 1013 | + + + | Race | Unknown | + + + | Ethnic Group | Unknown | + + + Author + + + | Author | [facility] | | | and [place] | + + + | Organization | [facility] | | | and [place] | + + + | Address | Unknown | + + + | Phone | Unavailable | + + + Support + + + + + | Name | Relationship | Address | Phone | + + + + + | Adilene Tavera | ECON | [address] | | | | | [place] [address] | | + + + + + Care Team Providers + +------+ + | Care Learning And Development Consultant Name | Role | Phone | + +------+ + | Luís Goodrich PA-C | PCP | | + +------+ + Encounter Details +--------+ + + + + | Date | Type | Department | Care Team | Description | +--------+ + + + + | // | Orders Only | [facility] | Chuy Kelly MD | | | 2014 | | CONVERSION | [address] | | | | | INTERFACES | [place] [address] | | | | | [phone] | [phone] | | | | | | (Fax) | | +--------+ + + + + [...] + | ECHO COMPLETE | Routin | 05/03/2014 | | Results for this | | | e | 11:00 AM | | procedure are in the | | | | PDT | | results section. | + +--------+ + + + documented in this encounter Results ECHO Complete (05/03/2014 11:00 AM PDT) + + | Specimen | + + | | + + + + + | Impressions | Performed At | + + + | 1. Overall left ventricular systolic function is normal with, an EF | | | between 60 - 65 %. 2. There is mild septal left ventricular | | | hypertrophy. 3. Mild aortic stenosis with peak/mean pressure gradient | | | of 19.90mmHg / 10.44mmHg, the aortic valve area by continuity | | | equation is 1.7cm . 4. Mild mitral regurgitation is present. 5. | | | Trace tricuspid regurgitation present. | | + + + + + + | Narrative | Performed At | + + + | Patient Name: MAURY TAVERA Date of : 1955 | | | Performing Physician: Chuy Kelly MD | | | | | | INDICATIONS murmur CONCLUSIONS 1. | | | Overall left ventricular systolic function is normal with, an EF | | | between 60 - 65 %. 2. There is mild septal left ventricular | | | hypertrophy. 3. Mild aortic stenosis with peak/mean pressure gradient | | | of 19.90mmHg / 10.44mmHg, the aortic valve area by continuity | | | equation is 1.7cm . 4. Mild mitral regurgitation is present. 5. | | | Trace tricuspid regurgitation present. FINDINGS -------- Study: | | | A 2-dimensional transthoracic echocardiogram with m-mode, spectral | | | and color flow Doppler was perfomed. Study: This was a technically | | | good study. Left Ventricle: Overall left ventricular systolic | | | function is normal with, an EF between 60 - 65 %. Left Ventricle: The | | | left ventricle size is normal. Left Ventricle: There is mild septal | | | left ventricular hypertrophy. Right Ventricle: The right ventricle is | | | normal in size and function. Left Atrium: The left atrium is mildly | | | dilated. Right Atrium: The right atrial size is normal. Aortic | | | Valve: Aortic valve is trileaflet and is moderately thickened. Aortic | | | Valve: There is no evidence of aortic regurgitation. Aortic Valve: | | | Mild aortic stenosis with peak/mean pressure gradient of 19.90mmHg / | | | 10.44mmHg, the aortic valve area by continuity equation is | | | 1.7cm . Mitral Valve: Mitral valve is thickened with nodular | | | degeneration. Mitral Valve: Mild mitral regurgitation is present. | | | Tricuspid Valve: The tricuspid valve appears structurally normal. | | | Tricuspid Valve: Trace tricuspid regurgitation present. Tricuspid | | | Valve: Poor TR signal prevents accurate assessment of pulmonary artery | | | pressure. Pulmonic Valve: Pulmonic valve appears structurally | | | normal. Pulmonic Valve: Trace/mild (physiologic) pulmonic | | | regurgitation. Pericardium: There is no pericardial effusion. | | | IVC/Hepatic Veins: The inferior vena cava is normal size and collapses | | | <50 % with sniff. Aorta: The aortic root, ascending aorta and aortic | | | arch are normal. Mass: No mass visualized Thrombus: No clot | | | visualized Thrombus: No vegetation visualized. Septum: No atrial | | | septal defect or ventricular septal defect observed. MEASUREMENTS | | | Ao asc: 3.31 cm IVC: 1.81 cm EDV(Teich): | | | 116.64 ml IVSd: 1.39 cm LVIDd: 4.97 cm LVPWd: 1.14 cm | | | LVOT Diam: 2.19 cm %FS: 47.32 % EF(Teich): 78.53 % | | | ESV(Teich): 25.04 ml LVIDs: 2.61 cm SV(Teich): 91.60 ml | | | RVIDd: 2.69 cm LVEF MOD A2C: 53.49 % SV MOD A2C: 46.11 ml | | | LVEF MOD A4C: 68.15 % SV MOD A4C: 89.83 ml EF Biplane: | | | 61.05 % LVEDV MOD BP: 108.04 ml LVESV MOD BP: 42.08 ml LVEDV | | | MOD A2C: 86.21 ml LVLd A2C: 8.57 cm LVEDV MOD A4C: 131.80 | | | ml LVLd A4C: 8.97 cm LVESV MOD A2C: 40.09 ml LVLs A2C: | | | 7.26 cm LVESV MOD A4C: 41.97 ml LVLs A4C: 6.85 cm LAESV(A-L): | | | 66.94 ml LAESV Index (A-L): 31.13 ml/m2 LAAs A2C: 19.86 | | | cm2 LAESV A-L A2C: 65.27 ml LALs A2C: 5.13 cm LAAs A4C: | | | 19.25 cm2 LAESV A-L A4C: 64.89 ml LALs A4C: 4.85 cm RAAs: | | | 13.11 cm2 RAESV A-L: 28.71 ml RAESV MOD: 28.48 ml RALs: | | | 5.08 cm Ao Diam: 3.13 cm LA Diam: 4.58 cm LA/Ao: 1.46 AV | | | maxP.90 mmHg AV meanP.43 mmHg AV Vmax: 2.23 m/s | | | AV Vmean: 1.53 m/s AV VTI: 52.71 cm CHAUNCEY Vmax: 1.60 cm2 CHAUNCEY | | | (VTI): 1.74 cm2 LVOT maxP.55 mmHg LVOT meanP.88 | | | mmHg LVSI Dopp: 42.71 ml/m2 LVSV Dopp: 91.84 ml LVOT Vmax: | | | 0.94 m/s LVOT Vmean: 0.65 m/s LVOT VTI: 24.20 cm MV A Darío: | | | 0.52 m/s MV DecT: 182.02 ms MV E Darío: 0.82 m/s MV E/A | | | Ratio: 1.56 Septal e': 0.03 m/s Septal E/e': 21.05 Lateral | | | e': 0.05 m/s Lateral E/e': 15.69 P Vein A: 0.25 m/s P | | | Vein A Dur: 149.72 ms P Vein D: 0.42 m/s P Vein S/D Ratio: | | | 1.73 P Vein S: 0.74 m/s PV maxP.11 mmHg PV Vmax: 1.01 | | | m/s Station Mechanic: MABEL Authenticated by: Chuy Kelly MD Report | | | Date/Time: 05-03-2014 17:51:46 | | + + + + + | Procedure Note | + + | Justice Keller Conversion - 07/21/2019 9:44 AM PDT Patient Name: Alma TAVERA of | | : 1955 Performing Physician: Chuy Kelly | | MD INDICATIONS m | | urmur CONCLUSIONS 1. Overall left ventricular systolic function is normal | | with, an EF between 60 - 65 %.2. There is mild septal left ventricular hypertrophy.3. | | Mild aortic stenosis with peak/mean pressure gradient of 19.90mmHg / 10.44mmHg, the | | aortic valve area by continuity equation is 1.7cm .4. Mild mitral regurgitation is | | present.5. Trace tricuspid regurgitation present. FINDINGS--------Study: A 2-dimensional | | transthoracic echocardiogram with m-mode, spectral and color flow Doppler was | | perfomed.Study: This was a technically good study.Left Ventricle: Overall left | | ventricular systolic function is normal with, an EF between 60 - 65 %.Left Ventricle: | | The left ventricle size is normal.Left Ventricle: There is mild septal left ventricular | | hypertrophy.Right Ventricle: The right ventricle is normal in size and function.Left | | Atrium: The left atrium is mildly dilated.Right Atrium: The right atrial size is | | normal.Aortic Valve: Aortic valve is trileaflet and is moderately thickened.Aortic | | Valve: There is no evidence of aortic regurgitation.Aortic Valve: Mild aortic stenosis | | with peak/mean pressure gradient of 19.90mmHg / 10.44mmHg, the aortic valve area by | | continuity equation is 1.7cm .Mitral Valve: Mitral valve is thickened with nodular | | degeneration.Mitral Valve: Mild mitral regurgitation is present.Tricuspid Valve: The | | tricuspid valve appears structurally normal.Tricuspid Valve: Trace tricuspid | | regurgitation present.Tricuspid Valve: Poor TR signal prevents accurate assessment of | | pulmonary artery pressure.Pulmonic Valve: Pulmonic valve appears structurally | | normal.Pulmonic Valve: Trace/mild (physiologic) pulmonic regurgitation.Pericardium: | | There is no pericardial effusion.IVC/Hepatic Veins: The inferior vena cava is normal | | size and collapses <50 % with sniff.Aorta: The aortic root, ascending aorta and aortic | | arch are normal.Mass: No mass visualizedThrombus: No clot visualizedThrombus: No | | vegetation visualized.Septum: No atrial septal defect or ventricular septal defect | | observed. MEASUREMENTS Ao asc: 3.31 cmIVC: 1.81 cmEDV(Teich): 116.64 | | mlIVSd: 1.39 cmLVIDd: 4.97 cmLVPWd: 1.14 cmLVOT Diam: 2.19 cm%FS: 47.32 | | %EF(Teich): 78.53 %ESV(Teich): 25.04 mlLVIDs: 2.61 cmSV(Teich): 91.60 mlRVIDd: | | 2.69 cmLVEF MOD A2C: 53.49 %SV MOD A2C: 46.11 mlLVEF MOD A4C: 68.15 %SV MOD A4C: | | 89.83 mlEF Biplane: 61.05 %LVEDV MOD BP: 108.04 mlLVESV MOD BP: 42.08 mlLVEDV | | MOD A2C: 86.21 mlLVLd A2C: 8.57 cmLVEDV MOD A4C: 131.80 mlLVLd A4C: 8.97 cmLVESV | | MOD A2C: 40.09 mlLVLs A2C: 7.26 cmLVESV MOD A4C: 41.97 mlLVLs A4C: 6.85 | | cmLAESV(A-L): 66.94 mlLAESV Index (A-L): 31.13 ml/m2LAAs A2C: 19.86 [id number] A-L | | A2C: 65.27 mlLALs A2C: 5.13 cmLAAs A4C: 19.25 [id number] A-L A4C: 64.89 mlLALs | | A4C: 4.85 cmRAAs: 13.11 [id number] A-L: 28.71 mlRAESV MOD: 28.48 mlRALs: 5.08 | | cmAo Diam: 3.13 cmLA Diam: 4.58 cmLA/Ao: 1.46AV maxP.90 mmHgAV meanPG: | | 10.43 mmHgAV Vmax: 2.23 m/Alex Vmean: 1.53 m/Alex VTI: 52.71 cmAVA Vmax: 1.60 | | cm2AVA (VTI): 1.74 [id number] maxP.55 mmHgLVOT meanP.88 mmHgLVSI Dopp: | | 42.71 ml/m2LVSV Dopp: 91.84 mlLVOT Vmax: 0.94 m/sLVOT Vmean: 0.65 m/sLVOT VTI: | | 24.20 cmMV A Darío: 0.52 m/sMV DecT: 182.02 msMV E Darío: 0.82 m/sMV E/A Ratio: | | 1.56Septal e': 0.03 m/sSeptal E/e': 21.05Lateral e': 0.05 m/sLateral E/e': | | 15.69P Vein A: 0.25 m/sP Vein A Dur: 149.72 msP Vein D: 0.42 m/sP Vein S/D Ratio: | | 1.73P Vein S: 0.74 m/sPV maxP.11 mmHgPV Vmax: 1.01 m/s Station Mechanic: | | DBSAuthenticated by: Chuy Kelly MDReport Date/Time: 05-03-2014 17:51:46 IMPRESSION: 1. | | Overall left ventricular systolic function is normal with, an EF between 60 - 65 %.2. | | There is mild septal left ventricular hypertrophy.3. Mild aortic stenosis with peak/mean | | pressure gradient of 19.90mmHg / 10.44mmHg, the aortic valve area by continuity | | equation is 1.7cm .4. Mild mitral regurgitation is present.5. Trace tricuspid | | regurgitation present. | |IVC: 1.81 cm | |EDV(Teich): 116.64 ml | |IVSd: 1.39 cm | |LVIDd: 4.97 cm | |LVPWd: 1.14 cm | |LVOT Diam: 2.19 cm | |%FS: 47.32 % | |EF(Teich): 78.53 % | |ESV(Teich): 25.04 ml | |LVIDs: 2.61 cm | |SV(Teich): 91.60 ml | |RVIDd: 2.69 cm | |LVEF MOD A2C: 53.49 % | |SV MOD A2C: 46.11 ml | |LVEF MOD A4C: 68.15 % | |SV MOD A4C: 89.83 ml | |EF Biplane: 61.05 % | |LVEDV MOD BP: 108.04 ml | |LVESV MOD BP: 42.08 ml | |LVEDV MOD A2C: 86.21 ml | |LVLd A2C: 8.57 cm | |LVEDV MOD A4C: 131.80 ml | |LVLd A4C: 8.97 cm | |LVESV MOD A2C: 40.09 ml | |LVLs A2C: 7.26 cm | |LVESV MOD A4C: 41.97 ml | |LVLs A4C: 6.85 cm | |LAESV(A-L): 66.94 ml | |LAESV Index (A-L): 31.13 ml/m2 | |LAAs A2C: 19.86 cm2 | |LAESV A-L A2C: 65.27 ml | |LALs A2C: 5.13 cm | |LAAs A4C: 19.25 cm2 | |LAESV A-L A4C: 64.89 ml | |LALs A4C: 4.85 cm | |RAAs: 13.11 cm2 | |RAESV A-L: 28.71 ml | |RAESV MOD: 28.48 ml | |RALs: 5.08 cm | |Ao Diam: 3.13 cm | |LA Diam: 4.58 cm | |LA/Ao: 1.46 | |AV maxP.90 mmHg | |AV meanP.43 mmHg | |AV Vmax: 2.23 m/s | |AV Vmean: 1.53 m/s | |AV VTI: 52.71 cm | |CHAUNCEY Vmax: 1.60 cm2 | |CHAUNCEY (VTI): 1.74 cm2 | |LVOT maxP.55 mmHg | |LVOT meanP.88 mmHg | |LVSI Dopp: 42.71 ml/m2 | |LVSV Dopp: 91.84 ml | |LVOT Vmax: 0.94 m/s | |LVOT Vmean: 0.65 m/s | |LVOT VTI: 24.20 cm | |MV A Darío: 0.52 m/s | |MV DecT: 182.02 ms | |MV E Darío: 0.82 m/s | |MV E/A Ratio: 1.56 | |Septal e': 0.03 m/s | |Septal E/e': 21.05 | |Lateral e': 0.05 m/s | |Lateral E/e': 15.69 | |P Vein A: 0.25 m/s | |P Vein A Dur: 149.72 ms | |P Vein D: 0.42 m/s | |P Vein S/D Ratio: 1.73 | |P Vein S: 0.74 m/s | |PV maxP.11 mmHg | |PV Vmax: 1.01 m/s | | | |Station Mechanic: DBS | |Authenticated by: Chuy Kelly MD | |Report Date/Time: 05-03-2014 17:51:46 | | | |IMPRESSION: | |1. Overall left ventricular systolic function is normal with, an EF between 60 - 65 %. | |2. There is mild septal left ventricular hypertrophy. | |3. Mild aortic stenosis with peak/mean pressure gradient of 19.90mmHg / 10.44mmHg, the aort ic valve area by continuity equation is 1.7cm . | |4. Mild mitral regurgitation is present. | |5. Trace tricuspid regurgitation present. | + + documented in this encounter Visit Diagnoses Not on filedocumented in this encounter"
--- OUTSIDE RECORDS SUMMARY | ~2019-12-14 | XMS | Encounter Summary ---
Demographics + + + | Address | [address] | | | [place] [address] | + + + | Home Phone | | + + + | Preferred Language | Unknown | + + + | Marital Status | | + + + | Hoahaoism Affiliation | CHR | + + + | Race | White | + + + | Ethnic Group | Not or | + + + Author + + + | Author | [facility] | + + + | Organization | [facility] | + + + | Address | Unknown | + + + | Phone | Unavailable | + + + Support + + + + + | Name | Relationship | Address | Phone | + + + + + | Adilene Morin | ECON | [address] | | | | | [place] [address] | | + + + + + Care Team Providers + +------+ + | Care Slot Supervisor Name | Role | Phone | + +------+ + | No Pcp Per Patient | PCP | Unavailable | + +------+ + Encounter Details +--------+ + + + + | Date | Type | Department | Care Team | Description | +--------+ + + + + | 12/10/ | Document-Sc | UNKNOWN DEPARTMENT | Unknown . | | | 2011 | anned | [address] | | | | | | [address] | | | | | | [place], [place] | | | | | | [address] | | | +--------+ + + + [...]
--- OUTSIDE RECORDS SUMMARY | ~2019-12-14 | XMS | Encounter Summary ---
Demographics + + + | Address | [address] | | | [place] [address] | + + + | Home Phone | | + + + | Preferred Language | Unknown | + + + | Marital Status | | + + + | Temple Affiliation | CHR | + + + | Race | White | + + + | Ethnic Group | Not or | + + + Author + + + | Author | [facility] | + + + | Organization | [facility] | + + + | Address | Unknown | + + + | Phone | Unavailable | + + + Support + + + + + | Name | Relationship | Address | Phone | + + + + + | Adilene Morin | ECON | [address] | | | | | [place] [address] | | + + + + + Care Team Providers + +------+ + | Care Department Chairperson Name | Role | Phone | + +------+ + PCP | Unavailable | + +------+ + Encounter Details +--------+ + + + + | Date | Type | Department | Care Team | Description | +--------+ + + + + | 03/16/ | [employer] | Urology Fertility | Fabrizio Gu MD | Unspecified Male | | 2007 | | [address] | | Infertility (Primary | | | | Mailcode: [id number] | | Dx) | | | | [facility] | | | | | | and Healing, | | | | | | Building | | | | | | Floor [place], [place] | | | | | | [address] | | | | | | [phone] | | | +--------+ + + + [...] filedocumented as of this encounter Visit Diagnoses + + | Diagnosis | + + | Male infertility, unspecified - Primary | + + documented in this encounter"
--- OUTSIDE RECORDS SUMMARY | ~2019-12-14 | XMS | Encounter Summary ---
Demographics + + + | Address | [address] | | | [place] [address] | + + + | Home Phone | | + + + | Preferred Language | Unknown | + + + | Marital Status | | + + + | Mosque Affiliation | 1013 | + + + | Race | Unknown | + + + | Ethnic Group | Unknown | + + + Author + + + | Author | [facility] | | | and [place] | + + + | Organization | [facility] | | | and [place] | + + + | Address | Unknown | + + + | Phone | Unavailable | + + + Support + + + + + | Name | Relationship | Address | Phone | + + + + + | Adilene Tavera | ECON | [address] | | | | | [place] [address] | | + + + + + Care Team Providers + +------+ + | Care Union Laborer Name | Role | Phone | + [...] | | | | | INTERFACES | [place] [address] | | | | | [phone] | [phone] | | | | | | (Fax) [...] PV Vmax: 1.01 | | | m/s Load Manager: MABEL Authenticated by: Chuy Kelly MD Report [...] mlLAESV Index (A-L): 31.13 ml/m2LAAs A2C: 19.86 [id number] A-L | | A2C: 65.27 mlLALs A2C: 5.13 cmLAAs A4C: 19.25 [id number] A-L A4C: 64.89 mlLALs | | A4C: 4.85 cmRAAs: 13.11 [id number] A-L: 28.71 mlRAESV MOD: 28.48 mlRALs: 5.08 | | cmAo Diam: 3.13 cmLA Diam: 4.58 cmLA/Ao: 1.46AV maxP.90 mmHgAV meanPG: | | 10.43 mmHgAV Vmax: 2.23 m/Alex Vmean: 1.53 m/Alex VTI: 52.71 cmAVA Vmax: 1.60 | | cm2AVA (VTI): 1.74 [id number] maxP.55 mmHgLVOT meanP.88 mmHgLVSI Dopp: | | [...] 0.74 m/sPV maxP.11 mmHgPV Vmax: 1.01 m/s Load Manager: | | DBSAuthenticated by: Chuy Kelly MDReport [...] |PV Vmax: 1.01 m/s | | | |Load Manager: DBS | |Authenticated by: Chuy Kelly MD [...]
--- OUTSIDE RECORDS SUMMARY | ~2019-12-14 | XMS | Encounter Summary ---
Demographics + + + | Address | [address] | | | [place] [address] | + + + | Home Phone | | + + + | Preferred Language | Unknown | + + + | Marital Status | | + + + | Confucianism Affiliation | CHR | + + + | Race | White | + + + | Ethnic Group | Not or | + + + Author + + + | Author | [facility] | + + + | Organization | [facility] | + + + | Address | Unknown | + + + | Phone | Unavailable | + + + Support + + + + + | Name | Relationship | Address | Phone | + + + + + | Adilene Morin | ECON | [address] | | | | | [place] [address] | | + + + + + Care Team Providers + +------+ + | Care Ordnance Keeper Name | Role | Phone | + +------+ + PCP | Unavailable | + +------+ + Reason for Visit + + + | Reason | Comments | + + + | Azoospermia | | + + + Encounter Details +--------+---------+ + + + | Date | Type | Department | Care Team | Description | +--------+---------+ + + + | 01/27/ | Office | Urology Fertility | Fabrizio Gu MD | Azoospermia (Primary | | 2006 | Visit | [address] | | Dx) | | | | Mailcode: CH10U | | | | | | [facility] | | | | | | and [place], | | | | | | Building | | | | | | [place], [place] | | | | | | [address] | | | | | | [phone] | | | +--------+---------+ + + + Social History + +-------+ [...] + + + | Blood Pressure | 134/89 | 01/27/2007 2:43 PM | | | | | PST | | + + + + + | Pulse | 83 | 01/27/2007 2:43 PM | | | | | PST | | + + + + + | Temperature | - | - | | + + + + + | Respiratory Rate | - | - | | + + + + + | Oxygen Saturation | - | - | | + + + + + | Inhaled Oxygen | - | - | | | Concentration | | | | + + + + + | Weight | 86.2 kg (190 lb) | 01/27/2007 2:43 PM | | | | | PST | | + + + + + | Height | 180.3 cm (5' 11") | 01/27/2007 2:43 PM | | | | | PST | | + + + + + | Body Mass Index | 26.5 | 01/27/2007 2:43 PM | | | | | PST | | + + + + + documented in this encounter Progress Notes Fabrizio Gu Md - 01/27/2007 3:24 PM Shirasoalnge Morin is a 51 y.o. male here for vasect william reversal consultation. He had his vasectomy 20 years ago after 2 children. He is divor serge from his first . His current partner is 38 years old and has one children. He jan es vasovasostomy to have a family with his current partner. 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 Chest: clear to auscultation in all lung chaney. Heart: regular sinus rhythm without murmur. The heart is not enlarged. ABD: soft, non tender, bowel sounds active, liver not enlarged, no masses palpable. No fla nk tenderness. Genitals: normal appearing penis circumcised. Testis normal, vasectomy site easily palpable granuloma. The epididymis is moderately engorged. 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 The procedure, alternatives and risks of vasectomy reversal were discussed at length. We di scussed the risks of bleeding, infection, scrotal pain and swelling, and the remote possibility of testicular atrophy. He understands that r eturn of sperm does not guarantee a and that some men will fail to have sperm ret urned to the semen and may require that the procedure be repeated or that other options to achieve may be required. The patient also understands the importance of elapsed ti me since vasectomy, antisperm antibodies, and his partners age. The patients was given a prescription for Keflex, 500 mg, to start the night before surger y as well as one PO the morning of surgery. He also received a prescription for Oxycodone 5 mg to take q 2-4 hours for pain after surgery. documented in this enc ounter Plan of Treatment Not on filedocumented as of this encounter Visit Diagnoses + + | Diagnosis | + + | Azoospermia - Primary | + + documented in this encounter
--- OUTSIDE RECORDS SUMMARY | ~2019-12-14 | XMS | Encounter Summary ---
Demographics + + + | Address | [address] | | | [place] [address] | + + + | Home Phone | | + + + | Preferred Language | Unknown | + + + | Marital Status | | + + + | Restorationist Affiliation | 1013 | + + + | Race | Unknown | + + + | Ethnic Group | Unknown | + + + Author + + + | Author | [facility] | | | and [place] | + + + | Organization | [facility] | | | and [place] | + + + | Address | Unknown | + + + | Phone | Unavailable | + + + Support + + + + + | Name | Relationship | Address | Phone | + + + + + | Adilene Tavera | ECON | [address] | | | | | [place] [address] | | + + + + + Care Team Providers + +------+ + | Care Television Agent Name | Role | Phone | + +------+ + | Luís Goodrich PA-C | PCP | | + +------+ + Encounter Details +--------+ + + + + | Date | Type | Department | Care Team | Description | +--------+ + + + + | 09/28/ | Orders Only | [facility] | GiovannyChris, | | | 2010 | | CONVERSION | MD [address] | | | | | INTERFACES | [place] [address] | | | | | [phone] | [phone] | | | | | | | | +--------+ + + + [...] | + +--------+ + + + | MRI WRIST LEFT WO | Routin | 09/28/2011 | | Results for this | | CONTRAST | e | 5:02 PM | | procedure are in the | | | | PDT | | results section. | + +--------+ + + + documented in this encounter Results MRI Wrist Left wo Contrast (09/28/2011 5:02 PM PDT) + + | Specimen | + + | | + + + + + | Narrative | Performed At | + + + | [facility] MRI WRIST LEFT UNENHANCED 09/28/2011 4:20 PM | | | History: 55 years. Male. Left wrist pain with coldness and | | | numbness of the fourth finger. Prior injury the hand on 08/13/11. | | | Utilizing a 1.5 Lauryn imaging unit, axial, coronal and sagittal T1 | | | and T2 FS imaging was performed throughout the left wrist. Additional | | | coronal T2-3-D imaging with thin slice imaging was performed in the | | | wrist. Please refer to the accompanying MR angiography report of | | | the left wrist. Findings: The wrist ossicles are show normal | | | cortical bone signal. The pisiform ossicle and hamate ossicle hook | | | are intact. The ulnar nerve is well visualized throughout Guyon's | | | canal, without edema or mass. No evidence of ganglion cyst in the | | | region of the ulnar nerve. The flexor carpi ulnaris tendon shows | | | normal dark signal, without tendinitis or edema. Therefore, there is | | | no obvious abnormalities of the wrist to explain any ulnar nerve | | | dysfunction. Carpal ossicles show normal association. There is | | | some fenestration or partial perforation of the triangular | | | fibrocartilage complex. Several small bone cysts are noted in wrist | | | ossicles, none which are significant. The carpal tunnel appears | | | normal. Please see the accompanying MR angiography of the left | | | wrist report for analysis of the ulnar artery. Conclusions: 1. | | | No obvious subacute traumatic findings of the left wrist. 2. In | | | particular, the course of the ulnar nerve is easily identified and | | | appears normal, without any impinging pathology. 3. Multiple small | | | carpal bone cysts, not significant. 4. Possible small areas of | | | partial perforation of the triangle fibrocartilage complex, which may | | | or may not be clinically significant. | | + + + + + | Procedure Note | + + | Krishna, Rad Conversion - 07/22/2019 11:13 AM PDT [facility] | | MRI WRIST LEFT UNENHANCED | | 09/28/2011 4:20 PM | | | | History: 55 years. Male. Left wrist pain with coldness and numbness of | | the fourth finger. Prior injury the hand on 08/13/11. | | | | Utilizing a 1.5 Lauryn imaging unit, axial, coronal and sagittal T1 and T2 | | FS imaging was performed throughout the left wrist. Additional coronal | | T2-3-D imaging with thin slice imaging was performed in the wrist. | | | | Please refer to the accompanying MR angiography report of the left wrist. | | | | Findings: The wrist ossicles are show normal cortical bone signal. The | | pisiform ossicle and hamate ossicle hook are intact. The ulnar nerve is | | well visualized throughout Guyon's canal, without edema or mass. No | | evidence of ganglion cyst in the region of the ulnar nerve. The flexor | | carpi ulnaris tendon shows normal dark signal, without tendinitis or edema. | | Therefore, there is no obvious abnormalities of the wrist to explain any | | ulnar nerve dysfunction. | | | | Carpal ossicles show normal association. There is some fenestration or | | partial perforation of the triangular fibrocartilage complex. Several small | | bone cysts are noted in wrist ossicles, none which are significant. The | | carpal tunnel appears normal. | | | | Please see the accompanying MR angiography of the left wrist report for | | analysis of the ulnar artery. | | | | Conclusions: | | 1. No obvious subacute traumatic findings of the left wrist. | | 2. In particular, the course of the ulnar nerve is easily identified | | and appears normal, without any impinging pathology. | | 3. Multiple small carpal bone cysts, not significant. | | 4. Possible small areas of partial perforation of the triangle | | fibrocartilage complex, which may or may not be clinically significant. | | | | | + + documented in this encounter Visit Diagnoses Not on filedocumented in this encounter"
--- OUTSIDE RECORDS SUMMARY | ~2019-12-14 | XMS | Encounter Summary ---
Demographics + + + | Address | [address] | | | [place] [address] | + + + | Home Phone | | + + + | Preferred Language | Unknown | + + + | Marital Status | | + + + | Evangelical Affiliation | 1013 | + + + | Race | Unknown | + + + | Ethnic Group | Unknown | + + + Author + + + | Author | [facility] | | | and [place] | + + + | Organization | [facility] | | | and [place] | + + + | Address | Unknown | + + + | Phone | Unavailable | + + + Support + + + + + | Name | Relationship | Address | Phone | + + + + + | Adilene Morin | ECON | [address] | | | | | [place] [address] | | + + + + + Care Team Providers + +------+ + | Care Real Estate Agency Licensee Name | Role | Phone | + +------+ + PCP | Unavailable | + +------+ + Encounter Details +--------+ + + + + | Date | Type | Department | Care Team | Description | +--------+ + + + + | 07/06/ | Emergency | [facility] | Sonu Lora, | | | 2011 | | MEDICAL CENTER | MD [address] | | | | | EMERGENCY CENTER | [place] [address] | | | | | [address] | [phone] | | | | | [place], [place] | | | | | | [address] | | | | | | [phone] | | | +--------+ + + + [...]
--- OUTSIDE RECORDS SUMMARY | ~2019-12-14 | XMS | Encounter Summary ---
Demographics + + + | Address | [address] | | | [place] [address] | + + + | Home Phone | | + + + | Preferred Language | Unknown | + + + | Marital Status | | + + + | Alevism Affiliation | 1013 | + + + | Race | Unknown | + + + | Ethnic Group | Unknown | + + + Author + + + | Author | [facility] | | | and [place] | + + + | Organization | [facility] | | | and [place] | + + + | Address | Unknown | + + + | Phone | Unavailable | + + + Support + + + + + | Name | Relationship | Address | Phone | + + + + + | Adilene Mikel | ECON | [address] | | | | | [place] [address] | | + + + + + Care Team Providers + +------+ + | Care Adon Name | Role | Phone | + +------+ + PCP | Unavailable | + +------+ + Encounter Details +--------+ + + + + | Date | Type | Department | Care Team | Description | +--------+ + + + + | 05/25/ | Hospital | [facility] | | | | 2007 | Encounter | MED CTR XRAY [address] | | | | | | [place] | | | | | | [place] [address] | | | | | | [phone] | | | +--------+ + + + [...]
--- OUTSIDE RECORDS SUMMARY | ~2019-12-14 | XMS | Encounter Summary ---
Demographics + + + | Address | [address] | | | [place] [address] | + + + | Home Phone | | + + + | Preferred Language | Unknown | + + + | Marital Status | | + + + | Sabianism Affiliation | CHR | + + + | Race | White | + + + | Ethnic Group | Not or | + + + Author + + + | Author | [facility] | + + + | Organization | [facility] | + + + | Address | Unknown | + + + | Phone | Unavailable | + + + Support + + + + + | Name | Relationship | Address | Phone | + + + + + | Adilene Morin | ECON | [address] | | | | | [place] [address] | | + + + + + Care Team Providers + +------+ + | Care File Conversion Operator Name | Role | Phone | + +------+ + | No Pcp Per Patient | PCP | Unavailable | + +------+ + Encounter Details +--------+ + + + + | Date | Type | Department | Care Team | Description | +--------+ + + + + | 01/28/ | Hospital | Registration [id number] | Fabrizio Gu MD | | | 2006 | Activity | [address] | | | | | | [address] Mailcode: RPB07 | | | | | | [place], [place] | | | | | | [address] | | | | | | [phone] | | | +--------+ + + + [...]
--- OUTSIDE RECORDS SUMMARY | ~2019-12-14 | XMS | Encounter Summary ---
Demographics + + + | Address | [address] | | | [place] [address] | + + + | Home Phone | | + + + | Preferred Language | Unknown | + + + | Marital Status | | + + + | Adventism Affiliation | 1013 | + + + [...] + | Adilenedannielle Tavera | ECON | [address] | | | | | [place] [address] | | + + + + + Care Team Providers + +------+ + | Care Battery Container Tester Aluminum Name | Role | Phone | + +------+ + | Luís Goodrich PA-C | PCP | | + +------+ + Encounter Details +--------+ + + + + | Date | Type | Department | Care Team | Description | +--------+ + + + + | 05/24/ | Orders Only | [facility] | Chuy Kelly MD | | | 2019 | | CARDIOLOGY [place] | [address] | | | | | [address]CHO [address] | [place] [address] | | | | | [place], [place] | [phone] | | | | | [address] | | | | | | [phone] | | | +--------+ + + + [...] MV A Darío: 0.66 m/s MV Dec [place]: 3.15 | | | m/s2 MV DecT: [...] Vmax: 1.65 m/s RV s': 0.09 m/s Director Of Institutional Research: DBS | | | Authenticated by: Chuy [...] cmLVIDd: 4.67 cmLVPWd: 1.06 cmLVOT Area: 3.86 [id number] Diam: | | 2.22 cm%FS: 42.14 %EF(Teich): [...] | | (A-L): 37.55 ml/m2LAAs A2C: 20.42 [id number] A-L A2C: 67.84 mlLALs A2C: 5.21 | | cmLAAs A4C: 24.30 un7ORCLK A-L A4C: 92.92 mlLALs A4C: 5.39 cmRAAs: 16.36 | | [id number] A-L: 45.89 mlRAESV MOD: 42.01 mlRALs: 4.95 cmTAPSE: 2.18 cmAV maxPG: | | 35.69 mmHgAV meanP.24 mmHgAV Vmax: 2.98 m/Alex Vmean: 2.24 m/Alex VTI: 66.06 | | cmAVA Vmax: 1.55 cm2AVA (VTI): 1.66 mg1QNIN (Vmax): 0.00 cm2/m2AVAI (VTI): 0.00 | | cm2/m2LVOT maxP.77 mmHgLVOT meanP.19 mmHgLVSI Dopp: 51.06 ml/m2LVSV Dopp: | | 109.79 mlLVOT Vmax: 1.20 m/sLVOT Vmean: 0.85 m/sLVOT VTI: 28.37 cmMV A Darío: | | 0.66 m/sMV Dec [place]: 3.15 m/s2MV DecT: 207.50 msMV E Darío: 0.65 m/sMV E/A Ratio: | | 0.97MV PHT: 60.17 msMVA By PHT: 3.65 pb5Glshrh e': 0.04 m/sSeptal E/e': | | 15.97Lateral e': 0.06 m/sLateral E/e': 9.79P Vein A: 0.23 m/sP Vein D: 0.56 m/sP | | Vein S/D Ratio: 0.95P Vein S: 0.53 m/sPV maxP.88 mmHgPV Vmax: 1.10 m/sRAP: | | 5 mmHgRVSP: 15.95 mmHgTR maxP.95 mmHgTR Vmax: 1.65 m/sRV s': 0.09 m/s | | Director Of Institutional Research: DBSAuthenticated by: Chuy RAOfatmata Date/Time: 05-25-2019 8:57:40 [...] A Darío: 0.66 m/s | |MV Dec [place]: 3.15 m/s2 | |MV DecT: 207.50 ms [...] |RV s': 0.09 m/s | | | |Director Of Institutional Research: DBS | |Authenticated by: Chuy Kelly MD [...]
--- OUTSIDE RECORDS SUMMARY | ~2019-12-14 | XMS | Encounter Summary ---
Demographics + + + | Address | [address] | | | [place] [address] | + + + | Home Phone | | + + + | Preferred Language | Unknown | + + + | Marital Status | | + + + | Mosque Affiliation | CHR | + + + | Race | White | + + + | Ethnic Group | Not or | + + + Author + + + | Author | [facility] | + + + | Organization | 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
--- OUTSIDE RECORDS SUMMARY | ~2019-12-14 | XMS | Encounter Summary ---
Demographics + + + | Address | [address] | | | [place] [address] | + + + | Home Phone | | + + + | Preferred Language | Unknown | + + + | Marital Status | | + + + | Hindu Affiliation | 1013 | + + + | Race | Unknown | + + + | Ethnic Group | Unknown | + + + Author + + + | Author | [facility] | | | and [place] | + + + | Organization | [facility] | | | and [place] | + + + | Address | Unknown | + + + | Phone | Unavailable | + + + Support + + + + + | Name | Relationship | Address | Phone | + + + + + | Adilene Mikesadie | ECON | [address] | | | | | [place] [address] | | + + + + + Care Team Providers + +------+ + | Care Manager Of Business Name | Role | Phone | + +------+ + | No, Physician | PCP | Unavailable | + +------+ + Reason for Visit +--------+ + | Reason | Comments | +--------+ + | Other | | +--------+ + Encounter Details +--------+ + + + + | Date | Type | Department | Care Team | Description | +--------+ + + + + | 03/23/ | Telephone | [facility] | Maynor Agrawal MD | Other | | 2018 | | CARDIOLOGY [address] | [address] | | | | | [place], | [place], [place] | | | | | [place] [address] | [address] | | | | | [phone] | | | +--------+ + + + [...]
--- OUTSIDE RECORDS SUMMARY | ~2019-12-14 | XMS | Encounter Summary ---
Demographics + + + | Address | [address] | | | [place] [address] | + + + | Home Phone [...] + + + | Author | [facility] | + + + | Organization | [facility] | + + + | Address | Unknown | + + + | Phone | Unavailable | + + + Support + + + + + | Name | Relationship | Address | Phone | + + + + + | Adilene Morin | ECON | [address] | | | | | [place] [address] | | + + + + + Care Team Providers + +------+ + | Care Signal Tower Director Name | Role | Phone | + [...] CH10U | | | | | | [facility] | | | | | | and [place], | | | | | | Building | | | | | | [place], [place] | | | | | | [address] | | | | | | [phone] | | | +--------+---------+ + + + [...] Fabrizio Gu Md - 01/27/2007 3:24 PM Shirasolange Morin is a 51 y.o. 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
--- OUTSIDE RECORDS SUMMARY | ~2019-12-14 | XMS | Encounter Summary ---
Demographics + + + | Address | [address] | | | [place] [address] | + + + | Home Phone [...] + | Adilene Mikel | ECON | [address] | | | | | [place] [address] | | + + + + + Care Team Providers + +------+ + | Care Skein Bleacher Name | Role | Phone | + +------+ + | Luís Goodrich PA-C | PCP | | + +------+ + Encounter Details +--------+ + + + + | Date | Type | Department | Care Team | Description | +--------+ + + + + | 08/19/ | Orders Only | [facility] | Chuy Kelly MD | | | 2016 | | [address] | [address] | | | | | [place], [place] | [place] [address] | | | | | [address] | [phone] | | | | | [phone] | | | +--------+ + + + [...] + | LIPID PANEL | Routin | 08/19/2016 | | Results for this | | | e | 3:56 PM | | procedure are in the | | | | PDT | | results section. | + +--------+ + + + | HEPATIC FUNCTION | Routin | 08/19/2016 | | Results for this | | PANEL | e | 3:56 PM | | procedure are in the | | | | PDT | | results section. | + +--------+ + + + documented in this encounter Results Hepatic Function Panel (08/19/2016 3:56 PM PDT) + +---------+ + + + | Component | Value | Ref Range | Performed | Pathologist | | | | | At | Signature | + +---------+ + + + | Protein, | 7.4 | 6.3 - 8.2 g/dL | EXTERNAL | | | Total | | | LAB | | + +---------+ + + + | Albumin | 3.8 | 3.6 - 5.0 g/dL | EXTERNAL | | | | | | LAB | | + +---------+ + + + | Bilirubin | 0.6 | 0.1 - 1.5 mg/dL | EXTERNAL | | | Total | | | LAB | | + +---------+ + + + | Bilirubin | 0.3 | 0.0 - 0.3 mg/dL | EXTERNAL | | | Direct | | | LAB | | + +---------+ + + + | ALP, | 63 | 35 - 115 U/L | EXTERNAL | | | External | | | LAB | | + +---------+ + + + | AST | 64 (H) | 10 - 45 U/L | EXTERNAL | | | | | | LAB | | + +---------+ + + + | ALT | 140 (H) | 10 - 65 U/L | EXTERNAL | | | | | | LAB | | + +---------+ + + + + + | Specimen | + + | Blood specimen | | (specimen) | + + + +---------+ + + | Performing | Address | City/State/Zipcode | Phone Number | | Organization | | | | + +---------+ + + | EXTERNAL LAB | | | | + +---------+ + + Lipid Panel (08/19/2016 3:56 PM PDT) + +---------+ + + + | Component | Value | Ref Range | Performed | Pathologist | | | | | At | Signature | + +---------+ + + + | Cholesterol | 133 | mg/dL | EXTERNAL | | | | | | LAB | | + +---------+ + + + | Triglycerid | 174 (H) | mg/dL | EXTERNAL | | | es | | | LAB | | + +---------+ + + + | HDL | 33 (L) | mg/dL | EXTERNAL | | | | | | LAB | | + +---------+ + + + | LDL | 65 | mg/dL | EXTERNAL | | | Cholesterol | | | LAB | | | , | | | | | | Calculated, | | | | | | External | | | | | + +---------+ + + + + + | Specimen | + + | Blood specimen | | (specimen) | + + + +---------+ + + | Performing | Address | City/State/Zipcode | Phone Number | | Organization | | | | + +---------+ + + | EXTERNAL LAB | | | | + +---------+ + + documented in this encounter Visit Diagnoses Not on filedocumented in this encounter"
--- OUTSIDE RECORDS SUMMARY | ~2019-12-14 | XMS | Encounter Summary ---
Demographics + + + | Address | [address] | | | [place] [address] | + + + | Home Phone | | + + + | Preferred Language | Unknown | + + + | Marital Status | | + + + | Catholic Affiliation | 1013 | + + + | Race | Unknown | + + + | Ethnic Group | Unknown | + + + Author + + + | Author | [facility] | | | and [place] | + + + | Organization | [facility] | | | and [place] | + + + | Address | Unknown | + + + | Phone | Unavailable | + + + Support + + + + + | Name | Relationship | Address | Phone | + + + + + | Adilenedannielle Morin | ECON | [address] | | | | | [place] [address] | | + + + + + Care Team Providers + +------+ + | Care Bindery Chief Name | Role | Phone | + +------+ + PCP | Unavailable | + +------+ + Encounter Details +--------+ + + + + | Date | Type | Department | Care Team | Description | +--------+ + + + + | 04/24/ | Hospital | [facility] | | | | 2007 | Encounter | MED CTR LABORATORY | | | | | | [address] | | | | | | [place] | | | | | | [address] | | | | | | [phone] | | | +--------+ + + + [...]
--- OUTSIDE RECORDS SUMMARY | ~2019-12-14 | XMS | Encounter Summary ---
Demographics + + + | Address | [address] | | | [place] [address] | + + + | Home Phone | | + + + | Preferred Language | Unknown | + + + | Marital Status | | + + + | Tenriism Affiliation | 1013 | + + + [...] + | Adilene Mikel | ECON | [address] | | | | | [place] [address] | | + + + + + Care Team Providers + +------+ + | Care Communications Equipment Supervisor Name | Role | Phone | + +------+ + PCP | Unavailable | + +------+ + Encounter Details +--------+ + + + + | Date | Type | Department | Care Team | Description | +--------+ + + + + | 12/07/ | Hospital | [facility] | | | | 2008 | Encounter | MED CTR XRAY [address] | | | | [address] | | | | | | [place] [address] | | | | | | [phone] | | | +--------+ + + + [...]
--- OUTSIDE RECORDS SUMMARY | ~2019-12-14 | XMS | Encounter Summary ---
Demographics + + + | Address | [address] | | | [place] [address] | + + + | Home Phone | | + + + | Preferred Language | Unknown | + + + | Marital Status | | + + + | Worship Affiliation | 1013 | + + + | Race | Unknown | + + + | Ethnic Group | Unknown | + + + Author + + + | Author | [facility] | | | and [place] | + + + | Organization | [facility] | | | and [place] | + + + | Address | Unknown | + + + | Phone | Unavailable | + + + Support + + + + + | Name | Relationship | Address | Phone | + + + + + | Adilenedannielle Morin | ECON | [address] | | | | | [place] [address] | | + + + + + Care Team Providers + +------+ + | Care Degreasing Wheel Operator Name | Role | Phone | + +------+ + PCP | Unavailable | + +------+ + Encounter Details +--------+ + + + + | Date | Type | Department | Care Team | Description | +--------+ + + + + | 04/27/ | Hospital | [facility] | | | | 2007 | Encounter | MED CTR MP INTRA OP | | | | | | [address] | | | | | | [place] | | | | | | [address] | | | | | | [phone] | | | +--------+ + + + [...]
--- OUTSIDE RECORDS SUMMARY | ~2019-12-14 | XMS | Encounter Summary ---
Demographics + + + | Address | [address] | | | [place] [address] | + + + | Home Phone | | + + + | Preferred Language | Unknown | + + + | Marital Status | | + + + | Quaker Affiliation | 1013 | + + + | Race | Unknown | + + + | Ethnic Group | Unknown | + + + Author + + + | Author | [facility] | | | and [place] | + + + | Organization | [facility] | | | and [place] | + + + | Address | Unknown | + + + | Phone | Unavailable | + + + Support + + + + + | Name | Relationship | Address | Phone | + + + + + | Adilene Morin | ECON | [address] | | | | | [place] [address] | | + + + + + Care Team Providers + +------+ + | Care Inspector Set Up And Lay Out Name | Role | Phone | + +------+ + | No, Physician | PCP | Unavailable | + +------+ + Encounter Details +--------+ + + + + | Date | Type | Department | Care Team | Description | +--------+ + + + + | 06/25/ | Orders Only | [facility] | Provider, | | | 2019 | | SYSTEM GENERIC OP | [address] | | | | | [address] | [place] [address] | | | | | [address] [place], [place] | [place] [address] | | | | | [address] | | | | | | [phone] | | | +--------+ + + + [...]
--- OUTSIDE RECORDS SUMMARY | ~2019-12-14 | XMS | Clinical Summary ---
Demographics + + + | Address | [address] | | | [place] [address] | + + + | Home Phone | | + + + | Preferred Language | Unknown | + + + | Marital Status | | + + + | Denominational Affiliation | CHR | + + + | Race | White | + + + | Ethnic Group | Not or | + + + Author + + + | Author | [facility] | + + + | Organization | [facility] | + + + | Address | Unknown | + + + | Phone | Unavailable | + + + Support + + + + + | Name | Relationship | Address | Phone | + + + + + | Adilene Morin | ECON | [address] | | | | | [place] [address] | | + + + + + Care Team Providers + +------+ + | Care Marine Pipe Welder Name | Role | Phone | + +------+ + | No Pcp Per Patient | PCP | Unavailable | + +------+ + Source Comments JOSE is fully live on both [facility] and [facility] InPatient.[facility] Allergies No Known Allergies Medications No known medications Active Problems No known active problems Social History + +-------+ +--------+------+ | Tobacco [...] | + + + + + | Influenza (Flu) | | | | | vaccination (#1) | 9 | | | + + + + + | Pneumococcal | Aged Out | | No longer eligible | | vaccination | | | based on patient's | | | | | age to complete this | | | | | topic | + + + + + Results Not on filefrom Last 3 Months Insurance +-------+--------+ +--------+ + +--------+ | Payer | Benefi | Subscriber | Effect | Phone | Address | Type | | | t Plan | ID | yuliana | | | | | | / | | Dates | | | | | | Group | | | | | | +-------+--------+ +--------+ + +--------+ | SAIF | SAIF | [phone] | | [phone] | [address] | Worker | | | | | [address] | s Comp | | | | | esent | | [place], [place] | | | | | | | | [address] | | +-------+--------+ +--------+ + +--------+ + +--------+ +--------+ + + | Guarantor Name | Accoun | Relation to | Date | Phone | Billing Address | | | t Type | Patient | of | | | | | | | | | | + +--------+ +--------+ + + | Maury Morin | Person | Self | [birth year] | | [address] | | | al/Fam | | 8 | [phone] | [place] [address] | | | garth | | | 2 (Home) | | + +--------+ +--------+ + + | Maury Morin | 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
--- OUTSIDE RECORDS SUMMARY | ~2019-12-14 | XMS | Encounter Summary ---
Demographics + + + | Address | [address] | | | [place] [address] | + + + | Home Phone | | + + + | Preferred Language | Unknown | + + + | Marital Status | | + + + | Quaker Affiliation | 1013 | + + + | Race | Unknown | + + + | Ethnic Group | Unknown | + + + Author + + + | Author | [facility] | | | and [place] | + + + | Organization | [facility] | | | and [place] | + + + | Address | Unknown | + + + | Phone | Unavailable | + + + Support + + + + + | Name | Relationship | Address | Phone | + + + + + | Adilene Mikel | ECON | [address] | | | | | [place] [address] | | + + + + + Care Team Providers + +------+ + | Care Learning And Development Coordinator Name | Role | Phone | + [...] [address] | | | | | [place], [place] | [place] [address] | | | | | [address] | [phone] | | | | | [phone] | | | +--------+ + + + [...]
--- OUTSIDE RECORDS SUMMARY | ~2019-12-14 | XMS | Encounter Summary ---
Demographics + + + | Address | [address] | | | [place] [address] | + + + | Home Phone | | + + + | Preferred Language | Unknown | + + + | Marital Status | | + + + | Gnosticist Affiliation | 1013 | + + + | Race | Unknown | + + + | Ethnic Group | Unknown | + + + Author + + + | Author | [facility] | | | and [place] | + + + | Organization | [facility] | | | and [place] | + + + | Address | Unknown | + + + | Phone | Unavailable | + + + Support + + + + + | Name | Relationship | Address | Phone | + + + + + | Adilenedannielle Tavera | ECON | [address] | | | | | [place] [address] | | + + + + + Care Team Providers + +------+ + | Care Military Source Operations Officer Name | Role | Phone | + +------+ + | Luís Goodrich PA-C | PCP | | + +------+ + Encounter Details +--------+ + + + + | Date | Type | Department | Care Team | Description | +--------+ + + + + | 08/19/ | Orders Only | [facility] | Chuy Kelly MD | | | 2015 | | CARDIOLOGY [place] | [address] | | | | | ECHO [address] | [place] [address] | | | | | [place], [place] | [phone] | | | | | [address] | | | | | | [phone] | | | +--------+ + + + [...] + | ECHO COMPLETE | Routin | 08/19/2016 | | Results for this | | | e | 4:01 PM | | procedure are in the | | | | PDT | | results section. | + +--------+ + + + documented in this encounter Results ECHO Complete (08/19/2016 4:01 PM PDT) + + | Specimen | + + | | + + + + + | Impressions | Performed At | + + + | 1. Overall left ventricular systolic function is normal with, an EF | | | between 55 - 60 %. 2. Mild aortic stenosis with peak/mean pressure | | | gradient of 30.66mmHg / 16.89mmHg, the aortic valve area by continuity | | | equation is 2.0cm?. 3. There is trace mitral regurgitation. | | + + + + + + | Narrative | Performed At | + + + | Patient Name: MAURY TAVERA Date of : 1955 | | | Performing Physician: Chuy Kelly MD | | | | | | INDICATIONS CAD CONCLUSIONS 1. Overall | | | left ventricular systolic function is normal with, an EF between 55 - | | | 60 %. 2. Mild aortic stenosis with peak/mean pressure gradient of | | | 30.66mmHg / 16.89mmHg, the aortic valve area by continuity equation is | | | 2.0cm?. 3. There is trace mitral regurgitation. FINDINGS | | | -------- ECG rhythm: Sinus rhythm. ECG rhythm: Resting bradycardia | | | (HR<60bpm). Study: A 2-dimensional transthoracic echocardiogram with | | | m-mode, spectral and color flow Doppler was perfomed. Study: This was | | | a technically adequate study. Left Ventricle: Overall left | | | ventricular systolic function is normal with, an EF between 55 - 60 %. | | | Left Ventricle: The left ventricle cavity size is normal. Left | | | Ventricle: Left ventricular wall thickness is normal. Left Ventricle: | | | No regional wall motion abnormalities. Left Ventricle: The diastolic | | | filling pattern is normal for the age of the patient. Right | | | Ventricle: The right ventricle is mildly enlarged measuring between | | | 3.4 - 3.7 cm. Left Atrium: The left atrium is mildly enlarged. Right | | | Atrium: The right atrium is normal in size. Aortic Valve: Aortic | | | valve is trileaflet and is mildly thickened. Aortic Valve: The aortic | | | valve is mildly calcified. Aortic Valve: There is no evidence of | | | aortic regurgitation. Aortic Valve: Mild aortic stenosis with | | | peak/mean pressure gradient of 30.66mmHg / 16.89mmHg, the aortic valve | | | area by continuity equation is 2.0cm?. Mitral Valve: The mitral | | | valve is normal. Mitral Valve: There is trace mitral regurgitation. | | | Tricuspid Valve: The tricuspid valve appears structurally normal. | | | Tricuspid Valve: The poor TR signal prevents accurate estimation of | | | pulmonary pressures. Pulmonic Valve: The pulmonic valve was not well | | | visualized. Pericardium: There is no pericardial effusion. | | | IVC/Hepatic Veins: The IVC is normal size (1.5-2.5cm) and collapses | | | >50% with sniff, consistent with central venous pressures of 5-10mmHg. | | | Aorta: The aortic root, ascending aorta and aortic arch are normal. | | | Mass: No mass visualized Thrombus: No clot visualized Thrombus: No | | | vegetation visualized. Septum: No ASD observed. Septum: No VSD | | | observed. MEASUREMENTS Ao asc: 3.[address] | | | junct: 3.11 cm IVC: 1.75 cm LA Major: 5.22 cm EDV(Teich): | | | 151.40 ml IVSd: 1.02 cm LVIDd: 5.56 cm LVPWd: 1.13 cm | | | LVOT Area: 3.96 cm2 LVOT Diam: 2.24 cm %FS: 42.11 % | | | EF(Teich): 72.52 % ESV(Teich): 41.59 ml LVIDs: 3.22 cm | | | SV(Teich): 109.80 ml RA Major: 5.41 cm RV Major: 7.22 cm | | | RVIDd: 3.47 cm TV Shantel Diam: 2.49 cm Ao Root: 3.57 cm Ao | | | Diam SVals: 3.68 cm LVEF MOD A2C: 61.50 % SV MOD A2C: 69.30 | | | ml LVEF MOD A4C: 56.46 % SV MOD A4C: 69.72 ml EF Biplane: | | | 57.00 % LVEDV MOD BP: 125.13 ml LVESV MOD BP: 53.80 ml LVEDV | | | MOD A2C: 112.68 ml LVLd A2C: 8.91 cm LVEDV MOD A4C: 123.46 | | | ml LVLd A4C: 9.79 cm LVESV MOD A2C: 43.37 ml LVLs A2C: | | | 7.26 cm LVESV MOD A4C: 53.74 ml LVLs A4C: 7.89 cm LAESV(A-L): | | | 74.93 ml LAESV Index (A-L): 35.01 ml/m2 LAAs A2C: 23.06 | | | cm2 LAESV A-L A2C: 81.88 ml LALs A2C: 5.51 cm LAAs A4C: | | | 20.69 cm2 LAESV A-L A4C: 67.25 ml LALs A4C: 5.40 cm Ao Diam: | | | 3.20 cm LA Diam: 4.90 cm LA/Ao: 1.52 AV maxP.66 | | | mmHg AV meanP.89 mmHg AV Vmax: 2.76 m/s AV Vmean: | | | 1.94 m/s AV VTI: 60.03 cm CHAUNCEY Vmax: 1.83 cm2 CHAUNCEY (VTI): | | | 1.95 cm2 LVOT maxP.53 mmHg LVOT meanP.54 mmHg LVSI | | | Dopp: 54.85 ml/m2 LVSV Dopp: 117.39 ml LVOT Vmax: 1.27 m/s | | | LVOT Vmean: 0.88 m/s LVOT VTI: 29.57 cm MV A Darío: 0.66 m/s | | | MV Dec Ingham: 3.59 m/s2 MV DecT: 201.05 ms MV E Darío: 0.72 | | | m/s MV E/A Ratio: 1.09 MV PHT: 58.30 ms MVA By PHT: 3.77 | | | cm2 Septal e': 0.05 m/s Septal E/e': 12.10 Lateral e': | | | 0.10 m/s Lateral E/e': 7.01 Civil Process Server: ELGIN Authenticated by: | | | Chuy Kelly MD Report Date/Time: 08-19-2016 17:30:25 | | + + + + + | Procedure Note | + + | Krishna, Rad Conversion - 07/20/2019 9:18 PM PDT Patient Name: Alma TAVERA of | | : 1955 Performing Physician: Chuy Kelly | | MD INDICATIONS C | | AD CONCLUSIONS 1. Overall left ventricular systolic function is normal with, | | an EF between 55 - 60 %.2. Mild aortic stenosis with peak/mean pressure gradient of | | 30.66mmHg / 16.89mmHg, the aortic valve area by continuity equation is 2.0cm?.3. There | | is trace mitral regurgitation. FINDINGS--------ECG rhythm: Sinus rhythm.ECG rhythm: | | Resting bradycardia (HR<60bpm).Study: A 2-dimensional transthoracic echocardiogram with | | m-mode, spectral and color flow Doppler was perfomed.Study: This was a technically | | adequate study.Left Ventricle: Overall left ventricular systolic function is normal | | with, an EF between 55 - 60 %.Left Ventricle: The left ventricle cavity size is | | normal.Left Ventricle: Left ventricular wall thickness is normal.Left Ventricle: No | | regional wall motion abnormalities.Left Ventricle: The diastolic filling pattern is | | normal for the age of the patient.Right Ventricle: The right ventricle is mildly | | enlarged measuring between 3.4 - 3.7 cm.Left Atrium: The left atrium is mildly | | enlarged.Right Atrium: The right atrium is normal in size.Aortic Valve: Aortic valve is | | trileaflet and is mildly thickened.Aortic Valve: The aortic valve is mildly | | calcified.Aortic Valve: There is no evidence of aortic regurgitation.Aortic Valve: Mild | | aortic stenosis with peak/mean pressure gradient of 30.66mmHg / 16.89mmHg, the aortic | | valve area by continuity equation is 2.0cm?.Mitral Valve: The mitral valve is | | normal.Mitral Valve: There is trace mitral regurgitation.Tricuspid Valve: The tricuspid | | valve appears structurally normal.Tricuspid Valve: The poor TR signal prevents accurate | | estimation of pulmonary pressures.Pulmonic Valve: The pulmonic valve was not well | | visualized.Pericardium: There is no pericardial effusion.IVC/Hepatic Veins: The IVC is | | normal size (1.5-2.5cm) and collapses >50% with sniff, consistent with central venous | | pressures of 5-10mmHg.Aorta: The aortic root, ascending aorta and aortic arch are | | normal.Mass: No mass visualizedThrombus: No clot visualizedThrombus: No vegetation | | visualized.Septum: No ASD observed.Septum: No VSD observed. MEASUREMENTS Ao | | asc: 3.[address] junct: 3.11 cmIVC: 1.75 cmLA Major: 5.22 cmEDV(Teich): | | 151.40 mlIVSd: 1.02 cmLVIDd: 5.56 cmLVPWd: 1.13 cmLVOT Area: 3.96 [id number] Diam: | | 2.24 cm%FS: 42.11 %EF(Teich): 72.52 %ESV(Teich): 41.59 mlLVIDs: 3.22 | | cmSV(Teich): 109.80 mlRA Major: 5.41 cmRV Major: 7.22 cmRVIDd: 3.47 cmTV Shantel | | Diam: 2.49 cmAo Root: 3.57 cmAo Diam SVals: 3.68 cmLVEF MOD A2C: 61.50 %SV MOD | | A2C: 69.30 mlLVEF MOD A4C: 56.46 %SV MOD A4C: 69.72 mlEF Biplane: 57.00 %LVEDV | | MOD BP: 125.13 mlLVESV MOD BP: 53.80 mlLVEDV MOD A2C: 112.68 mlLVLd A2C: 8.91 | | cmLVEDV MOD A4C: 123.46 mlLVLd A4C: 9.79 cmLVESV MOD A2C: 43.37 mlLVLs A2C: 7.26 | | cmLVESV MOD A4C: 53.74 mlLVLs A4C: 7.89 cmLAESV(A-L): 74.93 mlLAESV Index (A-L): | | 35.01 ml/m2LAAs A2C: 23.06 [id number] A-L A2C: 81.88 mlLALs A2C: 5.51 cmLAAs A4C: | | 20.69 [id number] A-L A4C: 67.25 mlLALs A4C: 5.40 cmAo Diam: 3.20 cmLA Diam: 4.90 | | cmLA/Ao: 1.52AV maxP.66 mmHgAV meanP.89 mmHgAV Vmax: 2.76 m/Alex | | Vmean: 1.94 m/Alex VTI: 60.03 cmAVA Vmax: 1.83 cm2AVA (VTI): 1.95 [id number] maxPG: | | 6.53 mmHgLVOT meanP.54 mmHgLVSI Dopp: 54.85 ml/m2LVSV Dopp: 117.39 mlLVOT | | Vmax: 1.27 m/sLVOT Vmean: 0.88 m/sLVOT VTI: 29.57 cmMV A Darío: 0.66 m/sMV Dec | | Ingham: 3.59 m/s2MV DecT: 201.05 msMV E Darío: 0.72 m/sMV E/A Ratio: 1.09MV PHT: | | 58.30 msMVA By PHT: 3.77 tw7Yssaho e': 0.05 m/sSeptal E/e': 12.10Lateral e': | | 0.10 m/sLateral E/e': 7.01 Civil Process Server: DHAuthenticated by: Chuy Kelly MDReport | | Date/Time: 08-19-2016 17:30:25 IMPRESSION: 1. Overall left ventricular systolic function | | is normal with, an EF between 55 - 60 %.2. Mild aortic stenosis with peak/mean pressure | | gradient of 30.66mmHg / 16.89mmHg, the aortic valve area by continuity equation is | | 2.0cm?.3. There is trace mitral regurgitation. | |MEASUREMENTS | | | |Ao asc: 3.76 cm | |Ao st junct: 3.11 cm | |IVC: 1.75 cm | |LA Major: 5.22 cm | |EDV(Teich): 151.40 ml | |IVSd: 1.02 cm | |LVIDd: 5.56 cm | |LVPWd: 1.13 cm | |LVOT Area: 3.96 cm2 | |LVOT Diam: 2.24 cm | |%FS: 42.11 % | |EF(Teich): 72.52 % | |ESV(Teich): 41.59 ml | |LVIDs: 3.22 cm | |SV(Teich): 109.80 ml | |RA Major: 5.41 cm | |RV Major: 7.22 cm | |RVIDd: 3.47 cm | |TV Shantel Diam: 2.49 cm | |Ao Root: 3.57 cm | |Ao Diam SVals: 3.68 cm | |LVEF MOD A2C: 61.50 % | |SV MOD A2C: 69.30 ml | |LVEF MOD A4C: 56.46 % | |SV MOD A4C: 69.72 ml | |EF Biplane: 57.00 % | |LVEDV MOD BP: 125.13 ml | |LVESV MOD BP: 53.80 ml | |LVEDV MOD A2C: 112.68 ml | |LVLd A2C: 8.91 cm | |LVEDV MOD A4C: 123.46 ml | |LVLd A4C: 9.79 cm | |LVESV MOD A2C: 43.37 ml | |LVLs A2C: 7.26 cm | |LVESV MOD A4C: 53.74 ml | |LVLs A4C: 7.89 cm | |LAESV(A-L): 74.93 ml | |LAESV Index (A-L): 35.01 ml/m2 | |LAAs A2C: 23.06 cm2 | |LAESV A-L A2C: 81.88 ml | |LALs A2C: 5.51 cm | |LAAs A4C: 20.69 cm2 | |LAESV A-L A4C: 67.25 ml | |LALs A4C: 5.40 cm | |Ao Diam: 3.20 cm | |LA Diam: 4.90 cm | |LA/Ao: 1.52 | |AV maxP.66 mmHg | |AV meanP.89 mmHg | |AV Vmax: 2.76 m/s | |AV Vmean: 1.94 m/s | |AV VTI: 60.03 cm | |CHAUNCEY Vmax: 1.83 cm2 | |CHAUNCEY (VTI): 1.95 cm2 | |LVOT maxP.53 mmHg | |LVOT meanP.54 mmHg | |LVSI Dopp: 54.85 ml/m2 | |LVSV Dopp: 117.39 ml | |LVOT Vmax: 1.27 m/s | |LVOT Vmean: 0.88 m/s | |LVOT VTI: 29.57 cm | |MV A Darío: 0.66 m/s | |MV Dec Ingham: 3.59 m/s2 | |MV DecT: 201.05 ms | |MV E Darío: 0.72 m/s | |MV E/A Ratio: 1.09 | |MV PHT: 58.30 ms | |MVA By PHT: 3.77 cm2 | |Septal e': 0.05 m/s | |Septal E/e': 12.10 | |Lateral e': 0.10 m/s | |Lateral E/e': 7.01 | | | |Civil Process Server: | |Authenticated by: Chuy Kelly MD | |Report Date/Time: 08-19-2016 17:30:25 | | | |IMPRESSION: | |1. Overall left ventricular systolic function is normal with, an EF between 55 - 60 %. | |2. Mild aortic stenosis with peak/mean pressure gradient of 30.66mmHg / 16.89mmHg, the aort ic valve area by continuity equation is 2.0cm?. | |3. There is trace mitral regurgitation. | + + documented in this encounter Visit Diagnoses Not on filedocumented in this encounter"
--- OUTSIDE RECORDS SUMMARY | ~2019-12-14 | XMS | Encounter Summary ---
Demographics + + + | Address | [address] | | | [place] [address] | + + + | Home Phone | | + + + | Preferred Language | Unknown | + + + | Marital Status | | + + + | Mu-Ism Affiliation | CHR | + + + | Race | White | + + + | Ethnic Group | Not or | + + + Author + + + | Author | [facility] | + + + | Organization | [facility] | + + + | Address | Unknown | + + + | Phone | Unavailable | + + + Support + + + + + | Name | Relationship | Address | Phone | + + + + + | Adilene Morin | ECON | [address] | | | | | [place] [address] | | + + + + + Care Team Providers + +------+ + | Care Director And Professor Name | Role | Phone | + [...] [address] | | | | | | [place], [place] | | | | | | [phone] | | | +--------+ + + + [...]
--- OUTSIDE RECORDS SUMMARY | ~2019-12-14 | XMS | Encounter Summary ---
Demographics + + + | Address | [address] | | | [place] [address] | + + + | Home Phone | | + + + | Preferred Language | Unknown | + + + | Marital Status | | + + + | Mandaen Affiliation | 1013 | + + + | Race | Unknown | + + + | Ethnic Group | Unknown | + + + Author + + + | Author | [facility] | | | and [place] | + + + | Organization | [facility] | | | and [place] | + + + | Address | Unknown | + + + | Phone | Unavailable | + + + Support + + + + + | Name | Relationship | Address | Phone | + + + + + | Adilenedannielle Tavera | ECON | [address] | | | | | [place] [address] | | + + + + + Care Team Providers + +------+ + | Care Medical Voucher Clerk Name | Role | Phone | + +------+ + | Luís Goodrich PA-C | PCP | | + +------+ + Encounter Details +--------+ + + + + | Date | Type | Department | Care Team | Description | +--------+ + + + + | 08/19/ | Orders Only | [facility] | Chuy Kelly MD | | | 2015 | | CARDIOLOGY [place] | [address] | | | | | [address] | [place] [address] | | | | | [place], [place] | [phone] | | | | | [address] | | | | | | [phone] | | | +--------+ + + + [...] | + +--------+ + + + | VAS CAROTID DUPLEX | Routin | 08/19/2016 | | Results for this | | BILATERAL | e | 4:01 PM | | procedure are in the | | | | PDT | | results section. | + +--------+ + + + documented in this encounter Results VAS Carotid Duplex Bilateral (08/19/2016 4:01 PM PDT) + + | Specimen | + + | | + + + + + | Impressions | Performed At | + + + | 1. Minimal intimal thickening in right internal carotid artery. 2. | | | Minimal disease of the left internal carotid artery. | | + + + + + + | Narrative | Performed At | + + + | Patient Name: MAURY TAVERA Date of : 1955 | | | Performing Physician: Chuy Kelly MD | | | | | | INDICATIONS CAD CONCLUSIONS 1. Minimal | | | intimal thickening in right internal carotid artery. 2. Minimal | | | disease of the left internal carotid artery. FINDINGS -------- | | | Right CCA: Minimal intimal thickening in right common carotid artery. | | | Right ICA: Minimal intimal thickening in right internal carotid | | | artery. Right ECA: Minimal intimal thickening in the right external | | | carotid artery. Right Vertebral: The right vertebral artery | | | demonstrates antegrade flow. Right Subclavian Artery: Doppler | | | velocities in the right subclavian artery are within normal limits. | | | Left CCA: Minimal intimal thickening in left common carotid artery. | | | Left ICA: The left internal carotid artery demonstrates mild | | | atherosclerotic plaque corresponding with a 1-15% left internal | | | carotid stenosis. Left ECA: Minimal intimal thickening in the left | | | external carotid artery. Left Vertebral: The left vertebral artery | | | demonstrates antegrade flow. Left Subclavian Artery: Doppler | | | velocities in the left subclavian artery are within normal limits. | | | MEASUREMENTS CCA ED: 18.23 cm/s CCA ED: 14.91 | | | cm/s CCA ED: 13.90 cm/s CCA ED: 10.98 cm/s CCA PS: 73.41 | | | cm/s CCA PS: 73.43 cm/s CCA PS: 86.69 cm/s CCA PS: 94.39 | | | cm/s ICA/CCA ED: 1.37 ICA/CCA ED: 1.96 ICA/CCA PS: 0.83 | | | ICA/CCA PS: 0.76 ECA AC: 58 deg ECA AC: 56 deg ECA ED: | | | 16.59 cm/s ECA ED: 12.04 cm/s ECA PS: 104.71 cm/s ECA PS: | | | 92.35 cm/s ICA AC: 47 deg ICA AC: 48 deg ICA AC: 56 deg | | | ICA AC: 58 deg ICA AC: 56 deg ICA ED: 18.83 cm/s ICA ED: | | | 21.56 cm/s ICA ED: 21.51 cm/s ICA ED: 23.52 cm/s ICA ED: | | | 19.06 cm/s ICA ED: 16.03 cm/s ICA PS: 58.12 cm/s ICA PS: | | | 72.02 cm/s ICA PS: 68.89 cm/s ICA PS: 68.91 cm/s ICA PS: | | | 72.59 cm/s ICA PS: 65.42 cm/s SUBC PS: 140.73 cm/s SUBC | | | PS: 121.81 cm/s VERT ED: 10.68 cm/s VERT ED: 10.67 cm/s | | | VERT PS: 59.93 cm/s VERT PS: 41.92 cm/s Supervisory Air Intercept Controller: ELGIN | | | Authenticated by: Chuy Kelly MD Report Date/Time: -- | | | [id number] | | + + + + --------+ | Procedure Note | + --------+ | Krishna, Rad Conversion - 07/20/2019 9:18 PM PDT Patient Name: Alma TAVERA of | | : 1955 Performing Physician: Chuy Kelly | | INDICATIONS C | | AD CONCLUSIONS 1. Minimal intimal thickening in right internal carotid | | artery.2. Minimal disease of the left internal carotid artery. FINDINGS--------Right | | CCA: Minimal intimal thickening in right common carotid artery.Right ICA: Minimal | | intimal thickening in right internal carotid artery.Right ECA: Minimal intimal | | thickening in the right external carotid artery.Right Vertebral: The right vertebral | | artery demonstrates antegrade flow.Right Subclavian Artery: Doppler velocities in the | | right subclavian artery are within normal limits.Left CCA: Minimal intimal thickening in | | left common carotid artery.Left ICA: The left internal carotid artery demonstrates mild | | atherosclerotic plaque corresponding with a 1-15% left internal carotid stenosis.Left | | ECA: Minimal intimal thickening in the left external carotid artery.Left Vertebral: The | | left vertebral artery demonstrates antegrade flow.Left Subclavian Artery: Doppler | | velocities in the left subclavian artery are within normal limits. | | MEASUREMENTS CCA ED: 18.23 cm/sCCA ED: 14.91 cm/sCCA ED: 13.90 cm/sCCA | | ED: 10.98 cm/sCCA PS: 73.41 cm/sCCA PS: 73.43 cm/sCCA PS: 86.69 cm/sCCA PS: | | 94.39 cm/Ashvin/CCA ED: 1.37ICA/CCA ED: 1.96ICA/CCA PS: 0.83ICA/CCA PS: 0.76ECA | | AC: 58 degECA AC: 56 degECA ED: 16.59 cm/sECA ED: 12.04 cm/sECA PS: 104.71 | | cm/sECA PS: 92.35 cm/Ashvin AC: 47 degICA AC: 48 degICA AC: 56 degICA AC: 58 | | degICA AC: 56 degICA ED: 18.83 cm/Ashvin ED: 21.56 cm/Ashvin ED: 21.51 cm/Ashvin ED: | | 23.52 cm/Ashvin ED: 19.06 cm/Ashvin ED: 16.03 cm/Ashvin PS: 58.12 cm/Ashvin PS: 72.02 | | cm/Ashvin PS: 68.89 cm/Ashvin PS: 68.91 cm/Ashvin PS: 72.59 cm/Ashvin PS: 65.42 cm/sSUBC | | PS: 140.73 cm/sSUBC PS: 121.81 cm/sVERT ED: 10.68 cm/sVERT ED: 10.67 cm/sVERT | | PS: 59.93 cm/sVERT PS: 41.92 cm/s Supervisory Air Intercept Controller: DHAuthenticated by: Chuy Kelly | | MDReport Date/Time: -- [id number] IMPRESSION: 1. Minimal intimal thickening | | in right internal carotid artery.2. Minimal disease of the left internal carotid artery. | |Left Vertebral: The left vertebral artery demonstrates antegrade flow. | |Left Subclavian Artery: Doppler velocities in the left subclavian artery are within normal limits. | | | |MEASUREMENTS | | | |CCA ED: 18.23 cm/s | |CCA ED: 14.91 cm/s | |CCA ED: 13.90 cm/s | |CCA ED: 10.98 cm/s | |CCA PS: 73.41 cm/s | |CCA PS: 73.43 cm/s | |CCA PS: 86.69 cm/s | |CCA PS: 94.39 cm/s | |ICA/CCA ED: 1.37 | |ICA/CCA ED: 1.96 | |ICA/CCA PS: 0.83 | |ICA/CCA PS: 0.76 | |ECA AC: 58 deg | |ECA AC: 56 deg | |ECA ED: 16.59 cm/s | |ECA ED: 12.04 cm/s | |ECA PS: 104.71 cm/s | |ECA PS: 92.35 cm/s | |ICA AC: 47 deg | |ICA AC: 48 deg | |ICA AC: 56 deg | |ICA AC: 58 deg | |ICA AC: 56 deg | |ICA ED: 18.83 cm/s | |ICA ED: 21.56 cm/s | |ICA ED: 21.51 cm/s | |ICA ED: 23.52 cm/s | |ICA ED: 19.06 cm/s | |ICA ED: 16.03 cm/s | |ICA PS: 58.12 cm/s | |ICA PS: 72.02 cm/s | |ICA PS: 68.89 cm/s | |ICA PS: 68.91 cm/s | |ICA PS: 72.59 cm/s | |ICA PS: 65.42 cm/s | |SUBC PS: 140.73 cm/s | |SUBC PS: 121.81 cm/s | |VERT ED: 10.68 cm/s | |VERT ED: 10.67 cm/s | |VERT PS: 59.93 cm/s | |VERT PS: 41.92 cm/s | | | |Supervisory Air Intercept Controller: ELGIN | |Authenticated by: Chuy Kelly MD | |Report Date/Time: -- [id number] | | | |IMPRESSION: | |1. Minimal intimal thickening in right internal carotid artery. | |2. Minimal disease of the left internal carotid artery. | + --------+ documented in this encounter Visit Diagnoses Not on filedocumented in this encounter"
--- OUTSIDE RECORDS SUMMARY | ~2019-12-14 | XMS | Encounter Summary ---
Demographics + + + | Address | [address] | | | [place] [address] | + + + | Home Phone | | + + + | Preferred Language | Unknown | + + + | Marital Status | | + + + | Episcopalian Affiliation | 1013 | + + + | Race | Unknown | + + + | Ethnic Group | Unknown | + + + Author + + + | Author | [facility] | | | and [place] | + + + | Organization | [facility] | | | and [place] | + + + | Address | Unknown | + + + | Phone | Unavailable | + + + Support + + + + + | Name | Relationship | Address | Phone | + + + + + | Adilenedannielle Tavera | ECON | [address] | | | | | [place] [address] | | + + + + + Care Team Providers + +------+ + | Care Jewel Bearing Driller Name | Role | Phone | + +------+ + | Luís Goodrich PA-C | PCP | | + +------+ + Encounter Details +--------+ + + + + | Date | Type | Department | Care Team | Description | +--------+ + + + + | 08/19/ | Orders Only | [facility] | Chuy Kelly MD | | | 2015 | | CARDIOLOGY [place] | [address] | | | | | [address] | [place] [address] | | | | | [place], [place] | [phone] | | | | | [address] | | | | | | [phone] | | | +--------+ + + + [...] 0.66 m/s | | | MV Dec Camp: 3.59 m/s2 MV DecT: 201.05 ms MV E Darío: 0.72 | | | m/s MV E/A Ratio: 1.09 MV PHT: 58.30 ms MVA By PHT: 3.77 | | | cm2 Septal e': 0.05 m/s Septal E/e': 12.10 Lateral e': | | | 0.10 m/s Lateral E/e': 7.01 V Belt Coverer: ELGIN Authenticated by: | | | Chuy [...] cmLVIDd: 5.56 cmLVPWd: 1.13 cmLVOT Area: 3.96 [id number] Diam: | | 2.24 cm%FS: 42.11 %EF(Teich): [...] (A-L): | | 35.01 ml/m2LAAs A2C: 23.06 [id number] A-L A2C: 81.88 mlLALs A2C: 5.51 cmLAAs A4C: | | 20.69 [id number] A-L A4C: 67.25 mlLALs A4C: 5.40 cmAo Diam: 3.20 cmLA Diam: 4.90 | | cmLA/Ao: 1.52AV maxP.66 mmHgAV meanP.89 mmHgAV Vmax: 2.76 m/Alex | | Vmean: 1.94 m/Alex VTI: 60.03 cmAVA Vmax: 1.83 cm2AVA (VTI): 1.95 [id number] maxPG: | | 6.53 mmHgLVOT meanP.54 mmHgLVSI Dopp: 54.85 ml/m2LVSV Dopp: 117.39 mlLVOT | | Vmax: 1.27 m/sLVOT Vmean: 0.88 m/sLVOT VTI: 29.57 cmMV A Darío: 0.66 m/sMV Dec | | Camp: 3.59 m/s2MV DecT: 201.05 msMV E Darío: 0.72 m/sMV E/A Ratio: 1.09MV PHT: | | 58.30 msMVA By PHT: 3.77 ig5Lipxld e': 0.05 m/sSeptal E/e': 12.10Lateral e': | | 0.10 m/sLateral E/e': 7.01 V Belt Coverer: DHAuthenticated by: Chuy Kelly MDReport | | [...] A Darío: 0.66 m/s | |MV Dec Camp: 3.59 m/s2 | |MV DecT: 201.05 ms | |MV E Darío: 0.72 m/s | |MV E/A Ratio: 1.09 | |MV PHT: 58.30 ms | |MVA By PHT: 3.77 cm2 | |Septal e': 0.05 m/s | |Septal E/e': 12.10 | |Lateral e': 0.10 m/s | |Lateral E/e': 7.01 | | | |V Belt Coverer: | |Authenticated by: Chuy Kelly MD | [...]
--- OUTSIDE RECORDS SUMMARY | ~2019-12-14 | XMS | Encounter Summary ---
Demographics + + + | Address | [address] | | | [place] [address] | + + + | Home Phone | | + + + | Preferred Language | Unknown | + + + | Marital Status | | + + + | Adventism Affiliation | 1013 | + + + | Race | Unknown | + + + | Ethnic Group | Unknown | + + + Author + + + | Author | [facility] | | | and [place] | + + + | Organization | [facility] | | | and [place] | + + + | Address | Unknown | + + + | Phone | Unavailable | + + + Support + + + + + | Name | Relationship | Address | Phone | + + + + + | Adilene Morin | ECON | [address] | | | | | [place] [address] | | + + + + + Care Team Providers + +------+ + | Care Signal Maintainer Name | Role | Phone | + +------+ + | Luís Goodrich PA-C | PCP | | + +------+ + Encounter Details +--------+ + + + + | Date | Type | Department | Care Team | Description | +--------+ + + + + | 07/06/ | Orders Only | [facility] | Chuy Mcknight MD | | | 2011 | | CONVERSION | [address] | | | | | [address]FAC[address] | [place] [address] | | | | | [phone] | [phone] | | | | | | | [...] + +--------+ + + + | CV CARDIAC PROCEDURE | Routin | 07/06/2012 | | Results for this | | | e | 1:07 PM | | procedure are in the | | | | PDT | | results section. | + +--------+ + + + documented in this encounter Results CV CARDIAC PROCEDURE (07/06/2012 1:07 PM PDT) + + | Specimen | + + | | + + + + + | Narrative | Performed At | + + + | | | | | | | PROCEDURES 1. Left heart catheterization with left | | | ventriculogram. 2. Selective coronary angiography. 3. | | | Primary stenting of proximal right coronary artery with 2.5 x 12 mm | | | Promus Element drug-eluting stent. INDICATIONS A | | | 56-year-old with tobacco dependence who presented with acute | | | myocardial infarction with ST elevation in V1 and V2. He was referred | | | for coronary angiography and possible coronary intervention. For | | | details regarding his presentation, kindly refer to my H and P. | | | DESCRIPTION OF PROCEDURE The patient was brought to the | | | catheterization lab in the fasting state and was prepped and draped | | | in the usual sterile fashion. Arterial access was obtained via right | | | femoral artery and a 6-Thai arterial sheath was placed. A 6-Thai | | | JL4 catheter was then advanced under fluoroscopic guidance and | | | engaged with the ostium of the left main coronary artery, and | | | multiple projections of the left coronary systems were obtained with | | | the use of contrast injections. The catheter was then exchanged to a | | | 6-Thai JR4 catheter, which was advanced under fluoroscopic guidance | | | and engaged with the ostium of the right coronary artery, and | | | multiple projections of the right coronary artery were obtained with | | | the use of contrast injections. The catheter was then exchanged to a | | | 6-Thai pigtail catheter which was advanced into the left ventricle, | | | and projections of left ventricular function in the SWAIN view were | | | done with contrast injections. FINDINGS HEMODYNAMICS | | | Pressures: Aortic pressure 103/52. LV 111/9. Gradient: There was no | | | gradient between the LV and aorta. CORONARY ANGIOGRAPHY The | | | coronary system was right dominant. 1. The left main bifurcated | | | into the LAD and left circumflex. Left main artery was free of | | | disease. 2. Left anterior descending artery has mild to moderate | | | disease proximally with stenosis estimated to be around 30%, | | | surrounding the diagonal branch ostium. The rest of the LAD was | | | free of disease. 3. Left circumflex coronary artery was a large | | | vessel that gave cascade of marginal branches. Circumflex was | | | free of disease. 4. The right coronary artery was totally occluded | | | proximally. LEFT VENTRICULOGRAM In SWAIN view at the end of the | | | procedure suggested normal left ventricular systolic function with | | | ejection fraction 70%. INTERVENTIONAL TECHNIQUE Although the | | | patient's anatomy is consistent with left dominant system and the | | | occluded artery appears to be the right coronary artery; however, he | | | continues to have significant chest and arm discomfort and therefore I | | | proceeded with intervening on the RCA. A JR4 guider catheter was | | | engaged with the ostium of the right coronary artery and BMW | | | guidewire was threaded into the RCA after Angiomax was given. | | | Resumption of the flow as seen after advancing of the wire. With that | | | 2.5 x 12 mm Promus Element drug-eluting stent was advanced and | | | positioned across the lesion and deployed with normal atmosphere. The | | | patient had quick resolution of his chest pain. The RCA appears to | | | be nondominant but was the infarct related artery. There was no | | | specific complications. ESTIMATED BLOOD LOSS Less than 50 mL. | | | CONCLUSION/RECOMMENDATIONS 1. Myocardial infarction with infarct | | | related artery being nondominant right coronary artery. 2. 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 3. Normal | | | left ventricular systolic function. 4. Status post stenting of right | | | coronary artery. 5. Recommend aggressive medical therapy. | | | Read by CHUY MCKNIGHT MD 07/06/2012 11:00 P | | + + + + + | Procedure Note | + + | Justice Keller Conversion - 07/22/2019 1:34 AM PDT | | | | PROCEDURES | | 1. Left heart catheterization with left ventriculogram. | | 2. Selective coronary angiography. | | 3. Primary stenting of proximal right coronary artery with 2.5 x 12 mm | | Promus Element drug-eluting stent. | | | | INDICATIONS | | A 56-year-old with tobacco dependence who presented with acute myocardial | | infarction with ST elevation in V1 and V2. He was referred for coronary | | angiography and possible coronary intervention. For details regarding his | | presentation, kindly refer to my H and P. | | | | DESCRIPTION OF PROCEDURE | | The patient was brought to the catheterization lab in the fasting state | | and was prepped and draped in the usual sterile fashion. Arterial access | | was obtained via right femoral artery and a 6-Thai arterial sheath was | | placed. A 6-Thai JL4 catheter was then advanced under fluoroscopic | | guidance and engaged with the ostium of the left main coronary artery, and | | multiple projections of the left coronary systems were obtained with the | | use of contrast injections. The catheter was then exchanged to a 6-Thai | | JR4 catheter, which was advanced under fluoroscopic guidance and engaged | | with the ostium of the right coronary artery, and multiple projections of | | the right coronary artery were obtained with the use of contrast | | injections. The catheter was then exchanged to a 6-Thai pigtail catheter | | which was advanced into the left ventricle, and projections of left | | ventricular function in the SWAIN view were done with contrast injections. | | | | FINDINGS | | | | HEMODYNAMICS | | Pressures: Aortic pressure 103/52. LV 111/9. | | Gradient: There was no gradient between the LV and aorta. | | | | CORONARY ANGIOGRAPHY | | The coronary system was right dominant. | | 1. The left main bifurcated into the LAD and left circumflex. Left main | | artery was free of disease. | | 2. Left anterior descending artery has mild to moderate disease | | proximally with stenosis estimated to be around 30%, surrounding the | | diagonal branch ostium. The rest of the LAD was free of disease. | | 3. Left circumflex coronary artery was a large vessel that gave cascade | | of marginal branches. Circumflex was free of disease. | | 4. The right coronary artery was totally occluded proximally. | | | | LEFT VENTRICULOGRAM | | In SWAIN view at the end of the procedure suggested normal left ventricular | | systolic function with ejection fraction 70%. | | | | INTERVENTIONAL TECHNIQUE | | Although the patient's anatomy is consistent with left dominant system and | | the occluded artery appears to be the right coronary artery; however, he | | continues to have significant chest and arm discomfort and therefore I | | proceeded with intervening on the RCA. A JR4 guider catheter was engaged | | with the ostium of the right coronary artery and BMW guidewire was | | threaded into the RCA after Angiomax was given. Resumption of the flow as | | seen after advancing of the wire. With that 2.5 x 12 mm Promus Element | | drug-eluting stent was advanced and positioned across the lesion and | | deployed with normal atmosphere. The patient had quick resolution of his | | chest pain. The RCA appears to be nondominant but was the infarct related | | artery. There was no specific complications. | | | | ESTIMATED BLOOD LOSS | | Less than 50 mL. | | | | CONCLUSION/RECOMMENDATIONS | | 1. Myocardial infarction with infarct related artery being nondominant | | right coronary artery. | | 2. 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 | | 3. Normal left ventricular systolic function. | | 4. Status post stenting of right coronary artery. | | 5. Recommend aggressive medical therapy. | | | | | | | | Read by CHUY MCKNIGHT MD 07/06/2012 11:00 P | | | | | + + documented in this encounter Visit Diagnoses Not on filedocumented in this encounter"
--- OUTSIDE RECORDS SUMMARY | ~2019-12-14 | XMS | Encounter Summary ---
Demographics + + + | Address | [address] | | | [place] [address] | + + + | Home Phone | | + + + | Preferred Language | Unknown | + + + | Marital Status | | + + + | Yazidi Affiliation | 1013 | + + + | Race | Unknown | + + + | Ethnic Group | Unknown | + + + Author + + + | Author | [facility] | | | and [place] | + + + | Organization | [facility] | | | and [place] | + + + | Address | Unknown | + + + | Phone | Unavailable | + + + Support + + + + + | Name | Relationship | Address | Phone | + + + + + | Adilene Morin | ECON | [address] | | | | | [place] [address] | | + + + + + Care Team Providers + +------+ + | Care Wire Chief Name | Role | Phone | [...] | | | | | INTERFACES | [place] [address] | | | | | [phone] | [phone] | | | | | | | [...] | | | femoral artery and a 6-Yemeni arterial sheath was placed. A 6-Yemeni | | | JL4 catheter was then advanced under fluoroscopic guidance and | | | engaged with the ostium of the left main coronary artery, and | | | multiple projections of the left coronary systems were obtained with | | | the use of contrast injections. The catheter was then exchanged to a | | | 6-Yemeni JR4 catheter, which was advanced under fluoroscopic guidance | | | and engaged with the ostium of the right coronary artery, and | | | multiple projections of the right coronary artery were obtained with | | | the use of contrast injections. The catheter was then exchanged to a | | | 6-Yemeni pigtail catheter which was advanced into the [...] obtained via right femoral artery and a 6-Yemeni arterial sheath was | | placed. A 6-Yemeni JL4 catheter was then advanced under fluoroscopic | | guidance and engaged with the ostium of the left main coronary artery, and | | multiple projections of the left coronary systems were obtained with the | | use of contrast injections. The catheter was then exchanged to a 6-Yemeni | | JR4 catheter, which was advanced under fluoroscopic guidance and engaged | | with the ostium of the right coronary artery, and multiple projections of | | the right coronary artery were obtained with the use of contrast | | injections. The catheter was then exchanged to a 6-Yemeni pigtail catheter | | which was advanced [...]
--- OUTSIDE RECORDS SUMMARY | ~2019-12-14 | XMS | Encounter Summary ---
Demographics + + + | Address | [address] | | | [place] [address] | + + + | Home Phone | | + + + | Preferred Language | Unknown | + + + | Marital Status | | + + + | Confucianism Affiliation | CHR | + + + | Race | White | + + + | Ethnic Group | Not or | + + + Author + + + | Author | [facility] | + + + | Organization | [facility] | + + + | Address | Unknown | + + + | Phone | Unavailable | + + + Support + + + + + | Name | Relationship | Address | Phone | + + + + + | Adilene Morin | ECON | [address] | | | | | [place] [address] | | + + + + + Care Team Providers + +------+ + | Care Aeronautical Design Engineer Name | Role | Phone | + +------+ + | No Pcp Per Patient | PCP | Unavailable | + +------+ + Reason for Visit + + + | Reason | Comments | + + + | New patient | left hand | | consultation | | + + + Consultation (Routine) +--------+---------+ + + + + | Status | Reason | Specialty | Diagnoses / | Referred By | Referred To | | | | | Procedures | Contact | Contact | +--------+---------+ + + + + | Closed | Other | Orthopedics | Diagnoses | Min[place], | [place], | | | | | left palmar | Alvin Collins, | Luis Chairez MD | | | | | ulnar nerve | [address] | [address] | | | | | contusion | [id number] | [address] | | | | | | [place], | [place], | | | | | | [place] [address] | [place] | | | | | | Phone: | [phone] | | | | | | [phone] | Phone: | | | | | | Fax: | [phone] | | | | | | [phone] | Fax: | | | | | | | [phone] | +--------+---------+ + + + + Encounter Details +--------+---------+ + + + | Date | Type | Department | Care Team | Description | +--------+---------+ + + + | 11/24/ | Office | Orthopaedics at | Luis Freed, | Finger pain (Primary | | 2010 | Visit | [facility] [address] | [address] | Dx) | | | | Ave Mailcode: [address] | [address] | | | | | [facility] | [place], [place] | | | | | and Healing, | [address] | | | | | [facility] | [phone] | | | | | Floor [place], [place] | | | | | | [address] | | | | | | [phone] | | | +--------+---------+ + + + [...] documented as of this encounter Progress Notes Luis Freed MD - 11/24/2011 11:29 AM PSTFormatting of this note might be different fr om the original. Chief Complaint: Left ring finger numbness History of Present Illness: Maury Morin is a 55 y.o. Right handed male seen in consulta tion for Alvin Wilkinson MD. The problem listed above as the chief complaint started on 08/13/2011 and was after an injury to the palm of the hand, did not puncture the skin. Pain is a 3/10 in the palm none in the finger. It is getting better over time and has most of t he sensation back in the finger. It is worse with cold weather and improved with rest/heat. no weakness and no numbness. Therapy has not been tried. 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 No past medical history on file. Past Surgical History Procedure Date Vasectomy 20 yr ago No current outpatient prescriptions on file prior to visit. No Known Allergies Fam: Non-contributory History Social History Marital Status: Spouse Name: N/A Number of Children: N/A Years of Education: N/A Occupational History Not on file. Social History Main Topics Smoking status: Not on file Smokeless tobacco: Not on file Alcohol Use: Not on file Drug Use: Not on file Sexually Active: Not on file Other Topics Concern Not on file Social History Narrative No narrative on file REVIEW OF SYSTEMS: Intake form was reviewed and pertinent positives are listed on this for m PHYSICAL EXAMINATION: Well developed, well nourished male Appears stated age Patient sitting comfortably, no acute distress Awake, alert, oriented x 3, interactive and appropriate NCAT, PERRL Neck demonstates full ROM without pain Skin demonstrates no erythema, cellulitis, rashes, or streaking except as noted below No peripheral edema in bilateral lower extremities except where noted below +2 radial and ulnar pulses at wrist, regular pulse < 2 sec cap refill at fingertips bilaterally Median, ulnar, radial dermatomes intact to light touch bilaterally except where noted below Moves all extremities easily bilaterally except where noted below ROM of the elbow hand, wrist, and fingers is full bilaterally except where noted below Left hand Tender to palpation mid toney crease Normal range of motion in the ring finger Has normal sensation to light touch Brisk cap refill. Brisk refill with occlusion of the radial digital artery, sluggish with occlusion of the ulnar digital artery IMAGING/DIAGNOSTIC STUDIES: Patient provided disc of MRA does not include all of the imaging, although does show ulnar carpal abutment with cyst formation in the lunate. IMPRESSION/PLAN: At this point, the injury that he has sustained seems to have nearly healed. The whiteness of the ring finger he experiences in the cold is likely due to vasospasm. At this point, t here is no need for surgical intervention as his finger is well perfused and the sensation h as returned and his collateral circulation is good. Would suggest that he take an asa a day. If he continues to have issues in another 3 months we will see him back, otherwise he does not need to follow up. documented in this e ncounter Plan of Treatment Not on filedocumented as of this encounter Visit Diagnoses + + | Diagnosis | + + | Finger pain - Primary Pain in limb | + + documented in this encounter"
--- OUTSIDE RECORDS SUMMARY | ~2019-12-14 | XMS | Encounter Summary ---
Demographics + + + | Address | [address] | | | [place] [address] | + + + | Home Phone | | + + + | Preferred Language | Unknown | + + + | Marital Status | | + + + | Yazdanism Affiliation | [id number] | + + + | Race | Unknown | + + + | Ethnic Group | Unknown | + + + Author + + + | Author | [facility] | | | and [place] | + + + | Organization | [facility] | | | and [place] | + + + | Address | Unknown | + + + | Phone | Unavailable | + + + Support + + + + + | Name | Relationship | Address | Phone | + + + + + | Adilene Morin | ECON | [address] | | | | | [place] [address] | | + + + + + Care Team Providers + +------+ + | Care Slip Seat Coverer Name | Role | Phone | + [...] +--------+--------+ + + + + Encounter Details +--------+ + + + + | Date | Type | Department | Care Team | Description | +--------+ + + + + | 02/24/ | Hospital | [facility] | Kilo Valle MD | ST elevation | | 2019 - | Encounter | MED CTR ICU [address] | [address] | myocardial | | | | [place], | [place], [place] | infarction involving | | 02/26/ | | [place] [address] | [id number] | right coronary | | 2019 | | [phone] | | artery (HCC) | | | | | Maynor Agrawal MD | | | | | | [address] | | | | | | [place], [place] | | | | | | [address] | | | | | | | [...] ADMITTING DIAGNOSIS: STEMI (ST elevation myocardial infarction) ([facility]) PRIMARY CARE PROVIDER: No Physician [...] pains. He was transferred via paramedics to [facility]. SUMMARIZED HOSPITAL COURSE: Patient was taken [...] some nonsustained [place] in the immediate post [place] days. He was treate d with amiodarone [...] hus UNABLE TO FIND Med Name: Serenity JsA essential oil Forms: Topical and inhalation Ingredients: Lav yoko Flower, Cedarwood, Ho Wood [place], Ylang Ylang Flower, Marjoram [place], Fabio Chamomile Fl ower, Vetiver Root, Vanilla Soto Absolute, Sandalwood UNABLE TO FIND Med Name: Breath JsA essential oil Form: Topical Ingredients: Carmelina [place], Eucalyp tus [place], Peppermint Plant, Melaleuca [place], Lemon Peel, Cardamom Seed, Ravintsara [place], Rave nsara Edenborn essential oils UNABLE TO FIND Med Name: Genaro WeinsteinA essential oil Form: Topical, Oral (put in a capsule or in liquids to drink) Ingredients: Resin from Boswellia carterii, sacra, papyrifera, and frer eana, a-pinene, limonene, a-thujene UNABLE TO FIND Med Name: On Guard Jsa essential oil Form: topical, oral. Ingredients: Wild [place] Peel, Clove [place], Cinnamon [place], Cinnamon Bark, Eucalyptus [place], and Ila Edenborn/Flower es sential oils. UNABLE TO FIND Med [...] microalgae" UNABLE TO FIND Med Name: [facility] Food nutrient complex doTerra product Instructions: take [...] glucoamylase, and peptidase, Pe ppermint, Roxana, and Oark, Made with sodium lauryl sulfate-free vegetable capsules [...] biloba, coenzyme Q10, quercetin, alpha-lipoic acid, and ucjyfr-a-yvrkljmbd ), Peppermint, Roxana, and Brad, Made with sodium [...] cinnamon, pepper, and ila. Date Last Reviewed: 08/29/201719997197-6100 [employer]. [address] [place] [address]. All righ ts reserved. This information is [...] rest of your life. Date Last Reviewed: 01/27/201819997595-[address] [employer] [place] [address]. All righ ts reserved. This information is [...] heartbeat or fast pulse Date Last Reviewed: 08/29/201619992894-[address] [employer] [place] [address]. All righ ts reserved. This information is not intended as a substitute for professional medical care. Always follow your healthcare professional's instructions. Follow-up: In [address] Maynor Agrawal in cardiology clinic. Time spent on discharge planning: greater than 30 minutes Portions of this chart may have been created with [employer] voice recognition software. Occasi onal wrong-word or [...] cinnamon, pepper, and ila. Date Last Reviewed: 08/29/201719993189-7974 [employer] [place] [address]. All righ ts reserved. This information is [...] rest of your life. Date Last Reviewed: 01/27/201819993213-1283 [employer]. [address] [place] [address], [place] [address]. All righ ts reserved. This information is [...] heartbeat or fast pulse Date Last Reviewed: 08/29/201619992161-3001 [employer]. [address] [place] [address], [place] [address]. All righ ts reserved. This information is [...] | | | | | | | [place], | | | | | | | Camphor, Peppermint, | | | | | | | Lexi Elliott, | | | | | | | [...] | | | | | | | Eden[place], Ylang Ylang | | | | | | | Flower, Marjoram | | | | | | | Eden[place], Fabio | | | | | | [...] | | | | | | | Eden[place], Eucalyptus | | | | | | | Eden[place], Peppermint | | | | | | | Plant, Melaleuca | | | | | | | Eden[place], Lemon Peel, | | | | | | | Cardamom Seed, | | | | | | | Ravintsara Eden[place], | | | | | | | Ravensara Edenborn | | | | | | | essential oils | | | | | + + + +---------+ + + | UNABLE TO FIND | Med Name: | | 0 | | | | | Frankincense doTERRA | | | | | | [...] | | | | | | Wild [place] Peel, | | | | | | | Clove [place], Cinnamon | | | | | | | Eden[place], Cinnamon Bark, | | | | | | | Eucalyptus Eden[place], | | | | | | | and Ila | | | | | | | Edenborn/Flower | | | | | | | essential oils. | | | | | + + + +---------+ + + | UNABLE TO FIND | Med Name: Julisa Cuba | | 0 | | | | [...] | | | | | serving of Viva RepublicaO Bereket | | | | | | [...] | | | | | fatty acids. Viva RepublicaO | | | | | | | [...] | | | | | | | zzqncm-m-ldlxvcicl), | | | | | | | Peppermint, Roxana, | | | | | | | and Oark, Made | | | | | | [...] + + + +---------+ + + | Fremont-3 Fatty | Take 870 mg by mouth [...] strength, and directions X Pharmacy list names: [facility] Vaccines up to date? Yes No Unsure Influenza X Pneumococcal X Tdap X Shingles X Noted medications discrepancies or medication-related issues: Medication added: Medication: Prior to Admission Sig: Fremont-3 fatty acids 435 mg caps 870 mg by mouth once daily Unable to find: Copaiba doTERRA essential oil Forms: oral and topical Ingredients: Resin from Copaifera reticulata, officinalis, coriacea, and langsdorffii, -c aryophyllene Unable to find: Deep Blue essential oil Form: topically use only Ingredients: [place], Camphor, Peppermint, Ylang Ylang, Helichrysum, Blue Tansy, Blue C hamomile, and Osmanthus Unable to find: Serenity essential oil Forms: Topical and inhalation Ingredients: Lavender Flower, Cedarwood, Ho Wood [place], Ylang Ylang Flower, Marjoram Eden[place], R catalina Chamomile Flower, Vetiver Root, Vanilla Soto Absolute, Sandalwood Unable to find: Breath doTerra essential oil Form: Topical Ingredients: Carmelina [place], Eucalyptus [place], Peppermint Plant, Melaleuca [place], Lemon Peel, Ca rdamom Seed, Ravintsara Edenborn, Ravensara Edenborn essential oils Unable to find: Frankincense doTERRA essential oil Form: Topical, Oral (put in a capsule o r in liquids to drink) Ingredients: Resin from Boswellia carterii, sacra, papyrifera, and frereana, a-pinene, limo jose, a-thujene Unable to find: On Guard doTerra essential oil Form: topical, oral. Ingredients: Wild [place] Peel, Clove [place], Cinnamon [place], Cinnamon Bark, Eucalyptus Eden[place], an d Ila Edenborn/Flower essential oils. xEO Bereket (essential oil omega [...] powerful antioxidant carotenoid* harvested from microalgae " [facility] Food nutrient complex caps (doTerra essential oils) [...] diastase, glucoamylase, and peptidase, Peppermint, Roxana, and Oark, Made with sodium lauryl sulfate-free vegetable capsules [...] biloba, coenzyme Q10, quercetin, alpha-lipoic acid, and wjbqdx-j-xmvjzkxll), Peppermint , Roxana, and Oark, Made with sodium lauryl sulfate-free vegetable capsules Last Recreational Substances, Tobacco & Alcohol use : Drug: Route Frequency: Last Used: Tobacco Smoking 5 packs/ weeks 02/24/19 @12 pm Tobacco Chewing 1 can/week 02/24/19 Alcohol 32 oz per day 02/21/19 PM Patient states "that's all I drink" Other: Medication: Prior to Admission Sig: Patient taking differently QUILLER HAND as: Aspirin 81 mg tab 1 tab by mouth once daily Not taking Patient states he quit taking ~1 weeks ago because he noticed his legs stopped aching whe n he wasn't taking it. Best possible QUILLER HAND medication list after pharmacy review: PT REPORTED TAKING NOT TAKING Medication Sig Last Dose Dispense Doc. Provider aspirin 81 mg EC tablet Take 81 mg by mouth Daily. Not Taking Historical ProviderMD Fremont-3 Fatty Acids (FISH OIL) 435 MG CAPS Take 870 mg by mouth Daily. Taking Historical ProviderMD UNABLE TO FIND Med Name: Copaiba AnnieERRA Essential oil Forms: oral and topical Ingredients: Resin from Copaifera reticulata, officinalis, coriacea, and langsdorffii, -c aryophyllene Taking Historical Provider, UNABLE TO FIND Med Name: Deep Blue doTerra essential oil Form: topically use only Ingredients: [place], Camphor, Peppermint, Ylang Ylang, Helichrysum, Blue Tansy, Blue C hamomile, and Osmanthus Taking Historical ProviderMD UNABLE TO FIND Med Name: Serenity doTERRA essential oil Forms: Topical and inhalation Ingredients: Lavender Flower, Cedarwood, Ho Wood [place], Ylang Ylang Flower, Marjoram Edenborn, R catalina Chamomile Flower, Vetiver Root, Vanilla Soto Absolute, Sandalwood Taking Hist orical ProviderMD UNABLE TO FIND Med Name: Breath doTERRA essential oil Form: Topical Ingredients: Carmelina Eden[place], Eucalyptus [place], Peppermint Plant, Melaleuca [place], Lemon Peel, Ca rdamom Seed, Ravintsara Edenborn, Ravensara Edenborn essential oils Taking Historical MD [place] UNABLE TO FIND Med Name: Frankincense doTERRA essential oil Form: Topical, Oral (put in a capsule or in liquids to drink) Ingredients: Resin from Boswellia carterii, sacra, papyrifera, and frereana, a-pinene, limo jose, a-thujene Taking Historical MD [place] UNABLE TO FIND Med Name: On Guard doTerra essential oil Form: topical, oral. Ingredients: Wild [place] Peel, Clove [place], Cinnamon [place], Cinnamon Bark, Eucalyptus Edenborn, an d Ila Edenborn/Flower essential oils. Taking Sagar Etienne MD UNABLE TO FIND Med Name: xEO Bereket [...] MD [place] UNABLE TO FIND Med Name: [facility] Food nutrient complex doTerra product Instructions: take [...] biloba, coenzyme Q10, quercetin, alpha-lipoic acid, and cpixtu-h-oskhdhnmw), Peppermint , Roxana, and Brad, Made with sodium lauryl sulfate-free vegetable capsules Last Taking Historical ProviderMD Medication review performed and electronically signed by Laura Gonzalez, Cash Applications Coordinator 2018 12:12 Reviewed by Efrain Herrera, PharmD 02/25/2019 12:56 Maynor Marshall MD - 02/25/2019 [...] consider anterior injury or acute infarct ACUTE [place] / STEMI T wave abnormality, consider lateral ischemia Nonspecific ST abnormality Inferior leads Abnormal ECG No previous ECGs available Confirmed by FENG OLIVER, AXEL ([id number]) on 02/24/2019 5:47:08 PM Troponin I Result [...] -- ASSESSMENT AND PLAN: 1. NSVT post [place]. 2. STEMI with rca stent 3. CAD with prior rca stent Load with Amiordarone. Pt intolerant of beta blockers. Will start Verapramil. Electronically Signed by: Maynor Agrawal MD [facility] 02/25/2019 12:35 [facility] documented in this enco unter Plan [...] + +--------+ + + + | EXTRA SABRINAENDER TOP | Routin | 02/26/2019 | | [...] | | | | AXEL TONEY MD ([id number]) | | | | | | on [...] | | | | mg/dL | [facility] | | | | | [facility] - | | | | | | LABORATORY | | + + + + + + | eGFR if not | >60 | >=60 | [facility] | | | | | mL/min/1.73m2 | [facility] | | [facility] | | [facility] | [facility] | | | | [facility] - | | | | | | LABORATORY | | + + + + + + | Calcium | 8.9 | 8.7 - 10.4 | [facility] | | | | | mg/dL | [facility] | | | | | | MEDICAL | | | | | | CENTER - | | | | | | LABORATORY | | + + + + + + | BUN/Creatin | 40.5 | | [facility] | | | ine Ratio | | | [facility] | [...] | + + + + + | [facility] | [address] | [place] | [phone] | | [facility] | | [address] | | | - LABORATORY | | | | + + + + + Magnesium (02/26/2019 4:54 AM PDT) + +-------+ + + + | Component | Value | Ref Range | Performed | Pathologist | | | | | At | Signature | + +-------+ + + + | Magnesium | 1.9 | 1.6 - 2.6 mg/dL | [facility] | | | | [...] [address] | [place] | [phone] | | [facility] | | [address] | | | - LABORATORY | | | | + + + + + Troponin I (02/26/2019 4:54 AM PDT) + + + + + + | Component | Value | Ref Range | Performed | Pathologist | | | | | At | Signature | + + + + + + | Troponin I | 1.66 ()Comment: New | <0.06 ng/mL | [facility] | | | | method in use as of | | [facility] | | | | January 25, 2019. [...] ST. | [address] | [place] | [phone] | | [facility] | | [address] | | | - LABORATORY | | [...] [address] | [place] | [phone] | | [facility] | | [address] | | | - LABORATORY | | [...] MD | | | | | | ([id number]) on 02/26/2019 | | | | | [...] 1.8 | 1.6 - 2.6 mg/dL | [facility] | | | | [...] | + + + + + | [facility] | [address] | [place] | [phone] | | [facility] | | [address] | | | - LABORATORY | | [...] Cholesterol | 158 | <=200 mg/dL | [facility] | | | | | | [facility] | | | | | | [facility]ICAL | | | | | | CENTER - | | | | | | LABORATORY | | + +--------+ + + + | HDL | 30 (L) | 40 - 60 mg/dL | [facility] | | | | [...] [address] | [place] | [phone] | | [facility] | | [address] | | | - LABORATORY | | | | + + + + + Troponin I (02/25/2019 4:08 AM PDT) + + + + + + | Component | Value | Ref Range | Performed | Pathologist | | | | | At | Signature | + + + + + + | Troponin I | 6.60 ()Comment: New | <0.06 ng/mL | [facility] | | | | method in use as of | | [facility] | | | | January 25, 2019. [...] + | [facility] | [address] | [place] | [phone] | | [facility] | | [address] | | | - LABORATORY | | | | + + + + + CK Total (02/25/2019 4:08 AM PDT) + +---------+ + + + | Component | Value | Ref Range | Performed | Pathologist | | | | | At | Signature | + +---------+ + + + | CK TOTAL | 214 (H) | 46 - 171 U/L | [facility] | | | | | [...] + | [facility] | [address] | [place] | [phone] | | [facility] | | [address] | | | - LABORATORY | | | | + + + + + CBC no Differential (02/25/2019 4:08 AM PDT) + + + + + + | Component | Value | Ref Range | Performed | Pathologist | | | | | At | Signature | + + + + + + | WBC | 8.0 | 4.0 - 11.0 K/uL | [facility] | | | | | | [facility] | | | | | | MEDICAL | | | | | | CENTER - | | | | | | LABORATORY | | + + + + + + | RBC | 4.32 | 4.30 - 5.70 | [facility] | | | | | M/uL | [facility] | | | | | | MEDICAL | | | | | | CENTER - | | | | | | LABORATORY | | + + + + + + | Hemoglobin | 13.8 | 13.5 - 18.0 | [facility] | | | | | g/dL | [facility] | | | | | [...] | | | | WBC's | [facility] | | | | | | MEDICAL | | | | | | CENTER - | | | | | | LABORATORY | | + + + + + + | Absolute | 0.00 | 0.00 - 0.01 | [facility] | | | nRBC | | K/uL | [facility] | | | | [...] ST. | [address] | [place], [place] | [phone] | | [facility] | | [address] | | | - LABORATORY | | [...] (H) | 60 - 106 mg/dL | [facility] | | | | | | [facility] | | | | | | MEDICAL | | | | | | CENTER - | | | | | | LABORATORY | | + +---------+ + + + | BUN | 17 | 9 - 23 mg/dL | [facility] | | | | | | [facility] [...] | | | | | mL/min/1.73m2 | [facility] | | | [place] | | | [facility] | | | | | | CENTER - | | | | | | LABORATORY | | + +---------+ + + + | Calcium | 8.4 (L) | 8.7 - 10.4 | [facility] | | | | | mg/dL | [facility] | | | | | | MEDICAL | | | | | | CENTER - | | | | | | LABORATORY | | + +---------+ + + + | BUN/Creatin | 21.0 | | [facility] | | | ine Ratio | | | [facility] | [...] ST. | [address] | [place], [place] | [phone] | | [facility] | | [address] | | | - LABORATORY | | | | + + + + + Troponin I (02/24/2019 5:20 PM PDT) + + + + + + | Component | Value | Ref Range | Performed | Pathologist | | | | | At | Signature | + + + + + + | Troponin I | 1.22 (HH)Comment: New | <0.06 ng/mL | [facility] | | | | method in use as of | | [facility] | | | | January 25, 2019. [...] [address] | [place] | [phone] | | [facility] | | [address] | | | - LABORATORY | | [...] | | | | | infarct ACUTE [place] / | | | | | | [...] by | | | | | | FENG OLIVER, AXEL ([id number]) | | | | | | on [...] | | Clotting | | second(s) | [facility] | | | Time, POC | [...] + + | [facility]. | [address] | [place] | [phone] | | [facility] | | [address] | | | - LABORATORY | | [...] | | Clotting | | second(s) | [facility] | | | Time, POC | [...] | + + + + + | [facility] | [address] | [place] | [phone] | | [facility] | | [address] | | | - LABORATORY | | [...] + | [facility] | [address] | [place], [place] | [phone] | | [facility] | | [address] | | | - LABORATORY | | [...] + | [facility] | [address] | [place] | [phone] | | [facility] | | [address] | | | - LABORATORY | | [...] | Top Tube | | | [facility] | | [...] [address] | [place] | [phone] | | [facility] | | [address] | | | - LABORATORY | | [...] | | Red Top | | | [facility] | | | Tube | | [...] [address] | [place] | [phone] | | [facility] | | [address] | | | - LABORATORY | | [...] + | [facility] | [address] | [place] | [phone] | | [facility] | | [address] | | | - LABORATORY | | [...] | | | Lavender | | | [facility] | | | Top Tube | [...] [address] | [place] | [phone] | | [facility] | | [address] | | | - LABORATORY | | [...] + | [facility]. | [address] | [place], [place] | [phone] | | [facility] | | [address] | | | - LABORATORY | | | | + + + + + documented in this encounter Visit Diagnoses + + | Diagnosis | + + | STEMI (ST elevation myocardial infarction) ([facility]) - Primary Acute myocardial | | infarction, unspecified site, episode of care unspecified | + + | ST elevation myocardial infarction involving right coronary artery ([facility]) Acute | | myocardial infarction of inferoposterior [...] PRN, Pain, Fever, Starting | | | 02/24/19 at 1658, | | | Post-op/Phase II | | + +---+ | | | + +---+ | aluminum & magnesium | | | hydroxide-simethicone (MAALOX | | | PLUS REGULAR STRENGTH) 200-200-20 | | | mg/5 mL suspension 30 mL 30 mL, | | | Oral, EVERY 4 HOURS PRN, | | | Indigestion, Starting 02/24/19 | | | at 1658, Robert bliss., | | | Post-op/Phase II | | + +---+ | | | + +---+ + +-------+ +--------+---+---+ | amiodarone (PACERONE) tablet | Given | 02/27/20 | 200 mg | | | | 200 mg 200 mg, Oral, 2 TIMES | | 19 9:31 | | | | | DAILY, First dose on 02/26/19 | | AM PDT | | | | | at 0900 | | | | | | + +-------+ +--------+---+---+ +---+---+ | | | +---+---+ + +---------+ + +-------+---+ | amiodarone in dextrose | New Bag | 02/26/20 | 1 mg/min | 33.3 | | | (NEXTERONE) 1.8 mg/mL infusion 8:22 | | mL/hr | | | mg/min (33.3333 mL/hr, rounded | | AM PDT | | | | | to 33.3 mL/hr), at 33.3 mL/hr, | | | | | | | Intravenous, TITRATED, Starting | | | | | | | 02/25/19 at 0800, For 6 hours, | | | | | | | Use 0.2 micron filter for | | | | | | | administration., | | | | | | + +---------+ + +-------+---+ +---+---+ | | | +---+---+ + +---------+ +--------+-------+---+ | amiodarone in dextrose | New Bag | 02/27/20 | 0.5 | 16.7 | | | (NEXTERONE) 1.8 mg/mL infusion | | 19 1:43 | mg/min | mL/hr | | | 0.5 mg/min (16.6667 mL/hr, | | AM PDT | | | | | rounded to 16.7 mL/hr), at 16.7 | | | | | | | mL/hr, Intravenous, TITRATED, | | | | | | | Starting 02/25/19 at 1422, For | | | | | | | 18 hours, Use 0.2 micron filter | | | | | | | for administration., | | | | | | + +---------+ +--------+-------+---+ +---------+ +--------+-------+---+ | New Bag | 02/26/20 | 0.5 | 16.7 | | | | 19 2:12 | mg/min | mL/hr | | | | PM PDT | | | | +---------+ +--------+-------+---+ +---+---+ | | | +---+---+ + +-------+ +--------+-------+---+ | amiodarone in dextrose | Given | 02/26/20 | 150 mg | 600 | | | (NEXTERONE) 150 mg/100 mL bolus | | 19 8:11 | | mL/hr | | | 150 mg 150 mg, Intravenous, | | AM PDT | | | | | Administer over 10 Minutes, ONCE, | | | | | | | 02/25/19 at 0800, For 1 dose, | | | | | | | For Rhythm Control Use 0.2 | | | | | | | micron filter for | | | | | | | administration., | | | | | | + +-------+ +--------+-------+---+ +---+---+ | | | +---+---+ + +-------+ [...] PDT | | | | +-------+ +-------+---+---+ + +---+ | | | + +---+ | lidocaine 1%-EPINEPHrine | | | 1:100,000 injection 5 mL 5 mL, | | | Infiltration, ONCE PRN, for | | | oozing at cardiac cath site, | | | Starting 02/24/19 at 1658, For | | | 1 [...] | + +---+ + +-------+ +--------+---+---+ | LORazepam (ATIVAN) 2 [...] | | +---+---+ + +-------+ +-------+---+---+ | metoprolol succinate | Given | 02/26/20 | 50 mg | | | | (TOPROL-XL) ER tablet 50 mg 50 | | 19 8:05 | | | | | mg, Oral, DAILY, First dose on | | AM PDT | | | | | 02/24/19 at 1715, Hold for | | | | | | | SBP<100 or HR<50. Tablet may be | | | | | | | cut where scored but do not | | | | | | | crush., Post-op/Phase II | | | | | | + +-------+ +-------+---+---+ +-------+ +-------+---+---+ | Given | 02/25/20 | 50 mg | | | | | 19 7:03 | | | | | | PM PDT | | | | +-------+ +-------+---+---+ + +---+ | | | + +---+ [...] +---+ | | | + +---+ + +---------+ +---------+-------+---+ | sodium chloride 0.9% (NS) bolus | New Bag | 02/25/20 | 100 mLs | 16.7 | | | 100 mL 100 mL, Intravenous, | | 19 6:28 | | mL/hr | | | Administer over 6 Hours, ONCE, | | PM PDT | | | | | 02/24/19 at 1715, For 1 dose, | | | | | | | 1 ml/kg/hr x 6 hours; Ns lock | | | | | | | post infusion, Post-op/Phase II | | | | | | + +---------+ +---------+-------+---+ +---+---+ | | | +---+---+ + +---------+ +--------+-------+---+ | sodium chloride 0.9% (NS) bolus | New Bag | 02/26/20 | 474.5 | 94.9 | | | 474.5 mL 474.5 mL, Intravenous, | | 19 1:00 | mLs | mL/hr | | | Administer over 5 Hours, ONCE, | | AM PDT | | | | | 3/30/19 at 0100, For 1 dose, | | | | | | | 1 ml/kg/hr x 6 hours; Ns lock | | | | | | | post infusion, Post-op/Phase II | | | | | | + +---------+ +--------+-------+---+ +---+---+ | | | +---+---+ + +-------+ +-------+---+---+ | ticagrelor (BRILINTA) tablet 90 | Given | 02/26/20 | 90 mg | | | | mg 90 mg, Oral, 2 TIMES DAILY, | | 19 5:26 | | | | | First dose on 02/25/19 at | | AM PDT | | | | | 0500, Start about 12 hours after | | | | | | | loading dose., Post-op/Phase II | | | | | | + +-------+ +-------+---+---+ +---+---+ | | | +---+---+ [...]
--- OUTSIDE RECORDS SUMMARY | ~2019-12-14 | XMS | Encounter Summary ---
Demographics + + + | Address | [address] | | | [place] [address] | + + + | Home Phone | | + + + | Preferred Language | Unknown | + + + | Marital Status | | + + + | Yazdanism Affiliation | 1013 | + + + | Race | Unknown | + + + | Ethnic Group | Unknown | + + + Author + + + | Author | [facility] | | | and [place] | + + + | Organization | [facility] | | | and [place] | + + + | Address | Unknown | + + + | Phone | Unavailable | + + + Support + + + + + | Name | Relationship | Address | Phone | + + + + + | Adilene Mikel | ECON | [address] | | | | | [place] [address] | | + + + + + Care Team Providers + +------+ + | Care Bean Snapper Name | Role | Phone | + +------+ + | Luís Goodrich PA-C | PCP | | + +------+ + Encounter Details +--------+ + + + + | Date | Type | Department | Care Team | Description | +--------+ + + + + | 07/23/ | Orders Only | [facility] | Chuy Kelly MD | | | 2016 | | [address] | [address] | | | | | [place], [place] | [place] [address] | | | | | [address] | [phone] | | | | | [phone] | | | +--------+ + + + [...] + | LIPID PANEL | Routin | 07/23/2016 | | Results for this | | | e | 4:29 PM | | procedure are in the | | | | PDT | | results section. | + +--------+ + + + | HEPATIC FUNCTION | Routin | 07/23/2016 | | Results for this | | PANEL | e | 4:29 PM | | procedure are in the | | | | PDT | | results section. | + +--------+ + + + documented in this encounter Results Hepatic Function Panel (07/23/2016 4:29 PM PDT) + +---------+ + + + | Component | Value | Ref Range | Performed | Pathologist | | | | | At | Signature | + +---------+ + + + | Protein, | 7.7 | 6.3 - 8.2 g/dL | EXTERNAL | | | Total | | | LAB | | + +---------+ + + + | Albumin | 4.1 | 3.6 - 5.0 g/dL | EXTERNAL | | | | | | LAB | | + +---------+ + + + | Bilirubin | 0.5 | 0.1 - 1.5 mg/dL | EXTERNAL | | | Total | | | LAB | | + +---------+ + + + | Bilirubin | 0.2 | 0.0 - 0.3 mg/dL | EXTERNAL | | | Direct | | | LAB | | + +---------+ + + + | ALP, | 66 | 35 - 115 U/L | EXTERNAL | | | External | | | LAB | | + +---------+ + + + | AST | 65 (H) | 10 - 45 U/L | EXTERNAL | | | | | | LAB | | + +---------+ + + + | ALT | 159 (H) | 10 - 65 U/L | [...] | + +---------+ + + Lipid Panel (07/23/2016 4:29 PM PDT) + +---------+ + + + | Component | Value | Ref Range | Performed | Pathologist | | | | | At | Signature | + +---------+ + + + | Cholesterol | 225 (H) | mg/dL | EXTERNAL | | | | | | LAB | | + +---------+ + + + | Triglycerid | 373 (H) | mg/dL | EXTERNAL | | | es | | | LAB | | + +---------+ + + + | HDL | 37 (L) | mg/dL | EXTERNAL | | | | | | LAB | | + +---------+ + + + | LDL | 113 (H) | mg/dL | EXTERNAL | | [...]
--- OUTSIDE RECORDS SUMMARY | ~2019-12-14 | XMS | Encounter Summary ---
Demographics + + + | Address | [address] | | | [place] [address] | + + + | Home Phone | | + + + | Preferred Language | Unknown | + + + | Marital Status | | + + + | Mosque Affiliation | CHR | + + + | Race | White | + + + | Ethnic Group | Not or | + + + Author + + + | Author | [facility] | + + + | Organization | [facility] | + + + | Address | Unknown | + + + | Phone | Unavailable | + + + Support + + + + + | Name | Relationship | Address | Phone | + + + + + | Adilene Morin | ECON | [address] | | | | | [place] [address] | | + + + + + Care Team Providers + +------+ + | Care Blister Packaging Machine Operator Name | Role | Phone | + +------+ + PCP | Unavailable | + +------+ + Encounter Details +--------+ + + + + | Date | Type | Department | Care Team | Description | +--------+ + + + + | 01/28/ | Procedure - | [facility] | Record, Operation | Operative Report | | 2006 | | [facility] at [facility] [address] | | | | | Transcribed | [address] | | | | | | Mailcode: Center | | | | | | [facility] and | | | | | | Healing, [address] | | | | | | [place], [place] | | | | | | [address] | | | | | | [phone] | | | +--------+ + + + [...] | 01/28/2007 12:00 AM PST | | [id number] | | [id number] [place] [address] [id number] | | | | Date: 01/28/2007 | | | | Attending Surgeon: Fabrizio Gu M.D. | | | | Board Certified Music Therapist(s): Renaldo Brenner M.D., Ph.D. | | | [...] | | EFF / HS | | [id number] / [id number] / [id number] / [id number] | | | | | | | | | | | | Electronically signed by Fabrizio Gu 02-14-2007 02:44:52 PM | | | | | + + documented in this encounter Visit Diagnoses Not on filedocumented in this encounter"
--- OUTSIDE RECORDS SUMMARY | ~2019-12-14 | XMS | Encounter Summary ---
Demographics + + + | Address | [address] | | | [place] [address] | + + + | Home Phone | | + + + | Preferred Language | Unknown | + + + | Marital Status | | + + + | Gnosticism Affiliation | 1013 | + + + | Race | Unknown | + + + | Ethnic Group | Unknown | + + + Author + + + | Author | [facility] | | | and [place] | + + + | Organization | [facility] | | | and [place] | + + + | Address | Unknown | + + + | Phone | Unavailable | + + + Support + + + + + | Name | Relationship | Address | Phone | + + + + + | Adilene Morin | ECON | [address] | | | | | [place] [address] | | + + + + + Care Team Providers + +------+ + | Care Wood Gouger Name | Role | Phone | + +------+ + | No, Physician | PCP | Unavailable | + +------+ + Encounter Details +--------+ + + + + | Date | Type | Department | Care Team | Description | +--------+ + + + + | 06/25/ | Orders Only | [facility] | Provider, | | | 2019 | | [facility] GENER[facility] OP | [address] | | | | | [address] | [place] [address] | | | | | [address] [place], [place] | [place] [address] | | | | | [address] | | | | | | [phone] | | | +--------+ + + + [...]
--- OUTSIDE RECORDS SUMMARY | ~2019-12-14 | XMS | Clinical Summary ---
Demographics + + + | Address | [address] | | | [place] [address] | + + + | Home Phone | | + + + | Preferred Language | Unknown | + + + | Marital Status | | + + + | Mu-Ism Affiliation | 1013 | + + + | Race | Unknown | + + + | Ethnic Group | Unknown | + + + Author + + + | Author | [facility] (Historical as of | | | 07-15-19) | + + + | Organization | [facility] (Historical as of | | | 07-15-19) | + + + | Address | Unknown | + + + | Phone | Unavailable | + + + Support + + + + + | Name | Relationship | Address | Phone | + + + + + | Adilene Tavera | ECON | [address] | | | | | [place] [address] | | + + + + + Care Team Providers + +------+ + | Care Academic Vice President Name | Role | Phone | + +------+ + | Luís Goodrich PA-C | PP | | + +------+ + Allergies + + + + + + | Active Allergy | Reactions | Severity | Noted | Comments | | | | | Date | | + + + + + + | Hydromorphone | Nausea Only | Low | 08/07/18 | | | | | | 12 | | + + + + + + Current Medications + + +--------+---------+------+------+-------+ | Prescription | Sig. | Disp. | Refills | Star | End | Statu | | | | | | t | Date | s | | | | | | Date | | | + + +--------+---------+------+------+-------+ | aspirin 81 MG EC | Take 81 mg by mouth | | | | | Activ | | tablet | daily with | | | | | e | | | breakfast. | | | | | | + + +--------+---------+------+------+-------+ | UNABLE TO FIND | Med Name: Copaiba | | | | | Activ | | | [...] | | | | | + + +--------+---------+------+------+-------+ | UNABLE TO FIND | Med Name: Deep Blue | | | | | Activ | | | doTerra essential | | | | | e | | | oil Form: topically | | | | | | | | use only | | | | | | | | Ingredients: | | | | | | | | [place], | | | | | | | [...] | | | | | + + +--------+---------+------+------+-------+ | UNABLE TO FIND | Med Name: Serenity | | | | | Activ | | | [...] | | | | | | | [place], Ylang Viviang | | | | | | | | Flower, Marjoram | | | | | | | | [place], Fabio | | | | | | | | Chamomile Flower, | | | | | | | | Vetiver Root, | | | | | | | | Vanilla Soto | | | | | | | | Absolute, | | | | | | | | [place] | | | | | | + + +--------+---------+------+------+-------+ | UNABLE TO FIND | Med Name: Breath | | | | | Activ | | | doTERRA essential | | | | | e | | | oil Form: Topical | | | | | | | | Ingredients: Carmelina | | | | | | | | [place], Eucalyptus | | | | | | | | [place], Peppermint | | | | | | | | Plant, Melaleuca | | | | | | | | [place], Lemon Peel, | | | | | | | | Cardamom Seed, | | | | | | | | Ravintsara [place], | | | | | | | | Ravensara [place] | | | | | | | | essential oils | | | | | | + + +--------+---------+------+------+-------+ | UNABLE TO FIND | Med Name: | | | | | Activ | | | [...] | | | | | | | shanae sacra, | | | | | | | | papyrifera, and | | | | | | | | frereana, a-pinene, | | | | | | | | limonene, a-thujene | | | | | | + + +--------+---------+------+------+-------+ | UNABLE TO FIND | Med Name: On Guard | | | | | Activ | | | doTerra essential | | | | | e | | | oil Form: topical, | | | | | | | | oral. Ingredients: | | | | | | | | Wild Rea Peel, | | | | | | | | Clove [place], Cinnamon | | | | | | | | [place], Cinnamon Bark, | | | | | | | | Eucalyptus [place], | | | | | | | | and Candace | | | | | | | | [place]/Flower | | | | | | | | essential oils. | | | | | | + + +--------+---------+------+------+-------+ | UNABLE TO FIND | Med Name: Julisa [place] | | | | | Activ | | | [...] | | | | | + + +--------+---------+------+------+-------+ | UNABLE TO FIND | Med Name: Microplex | | | | | Activ | | | [...] | | | | | | | parsrajiv jeff, | | | | | | | | broccoli, br... | | | | | | + + +--------+---------+------+------+-------+ | UNABLE TO FIND | Med Name: Alpha CRS+ | | | | | Activ | | | [...] | | | | | + + +--------+---------+------+------+-------+ | nitroGLYCERIN | Place 1 tablet under | 90 | 0 | 04/0 | 04/0 | Activ | | (NITROSTAT) 0.4 MG | the tongue every 5 | tablet | | 3/20 | 2/20 | e | | SL tablet | (five) minutes as | | | 19 | 20 | | | | needed for Chest | | | | | | | | pain. | | | | | | + + +--------+---------+------+------+-------+ | clopidogrel | Take 75 mg by mouth | | | | | Activ | | (PLAVIX) 75 MG | daily. | | | | | e | | tablet | | | | | | | + + +--------+---------+------+------+-------+ | atorvastatin | Take 1 tablet by | 90 | 3 | 04/2 | | Activ | | (LIPITOR) 20 MG | mouth nightly. | tablet | | 4/20 | | e | | tablet | | | | 19 | | | + + +--------+---------+------+------+-------+ | metoprolol | Take 1 tablet by | 90 | 3 | 04/2 | | Activ | | (TOPROL-XL) 25 MG 24 | mouth daily. | tablet | | 03/18 | | e | | hr tablet | | | | 19 | | | + + +--------+---------+------+------+-------+ Active Problems + + + | Problem | Noted Date | + + + | S/P coronary artery stent placement | 03/22/2019 | + + + | Heart murmur | 04/19/2014 | + + + | CT (myocardial infarction) | | + + + + + | Overview: secondary to occlusion of nondominant RCA, S/P | | stenting June 2012 | + + + +---+ | Past history of chewing tobacco use | | + +---+ | Hyperlipidemia | | + +---+ | CAD (coronary artery disease) | | + +---+ | Chronic back pain | | + +---+ Family History + + +------+ + | Medical History | Relation | Name | Comments | + + +------+ + | Cancer [...] + +------+ + + Social History + +-------+ +--------+ + | Tobacco Use | Types | Packs/Day | Years | Date | | | | | Used | | + +-------+ +--------+ + | Former Smoker | | 0.5 | 15 | Quit: 12/30/2014 | + +-------+ +--------+ + + +---+---+---+ | Smokeless Tobacco: | | | | | Current User | | | | + +---+---+---+ + + | Tobacco Cessation: Ready to Quit: Yes; Counseling Given: Yes | + + + + +---------+ + | Alcohol Use | Drinks/We | oz/Week | Comments | | | ek | | | + + +---------+ + | Yes | 12 Cans | 7.2 | | | | of beer | | | + + +---------+ + + + + | Sex Assigned at | Date Recorded | | | | + + + | Not on file | | + + + Last Filed Vital Signs + + + + | Vital Sign | Reading | Time Taken | + + + + | Blood Pressure | 160/90 | 06/21/2019 11:25 AM PDT | + + + + | Pulse | 58 | 06/21/2019 11:25 AM PDT | + + + + | Temperature | 36.8 C (98.2 F) | 03/01/2019 9:21 PM PDT | + + + + | Respiratory Rate | 18 | 06/21/2019 11:25 AM PDT | + + + + | Oxygen Saturation | 97% | 06/21/2019 11:25 AM PDT | + + + + | Inhaled Oxygen | - | - | | Concentration | | | + + + + | Weight | 100.2 kg (221 lb) | 06/21/2019 11:25 AM PDT | + + + + | Height | 179.1 cm (5' 10.5") | 06/21/2019 11:25 AM PDT | + + + + | Body Mass Index | 31.26 | 06/21/2019 11:25 AM PDT | + + + + Plan of Treatment + + + + + | Health Maintenance | Due Date | Last Done | Comments | + + + + + | Vaccine: | | | | | Dtap/Tdap/Td (1 - | 7 | | | | Tdap) | | | | + + + + + | Vaccine: | | | | | Pneumococcal 19-64 | 7 | | | | (PPSV23 only) Medium | | | | | Risk (1 of 1 - | | | | | PPSV23) | | | | + + + + + | Colon Cancer | | | | | Screening | 8 | | | | (Colonoscopy) | | | | + + + + + | Vaccine: Zoster (1 | | | | | of 2) | 8 | | | + + + + + | Vaccine: Influenza | | | | | (#1) | 9 | | | + + + + + Results Not on filefrom Last 3 Months Insurance +---------+--------+ +------+-------+ + | Payer | Benefi | Subscriber | Type | Phone | Address | | | t Plan | ID | | | | | | / | | | | | | | Group | | | | | +---------+--------+ +------+-------+ + | PREMERA | PREMER | [id number] | | | [address] [address] | | | A BLUE | 7 | | | [place] | | | CARD | | | | [phone] | +---------+--------+ +------+-------+ + + +--------+ +--------+ + + | Guarantor Name | Accoun | Relation to | Date | Phone | Billing Address | | | t Type | Patient | of | | | | | | | | | | + +--------+ +--------+ + + | MOMO TAVERA | Person [birth year] Self [birth year] Home: | [address] | | | al/Fam | | 1955 | [phone] [place] | | | [place] | | | [phone] | [address] | + +--------+ +--------+ + +
--- OUTSIDE RECORDS SUMMARY | ~2019-12-14 | XMS | Encounter Summary ---
Demographics + + + | Address | [address] | | | [place] [address] | + + + | Home Phone | | + + + | Preferred Language | Unknown | + + + | Marital Status | | + + + | Caodaism Affiliation | CHR | + + + | Race | White | + + + | Ethnic Group | Not or | + + + Author + + + | Author | [facility] | + + + | Organization | [facility] | + + + | Address | Unknown | + + + | Phone | Unavailable | + + + Support + + + + + | Name | Relationship | Address | Phone | + + + + + | Adilene Morin | ECON | [address] | | | | | [place] [address] | | + + + + + Care Team Providers + +------+ + | Care Stock Chaser Name | Role | Phone | + +------+ + PCP | Unavailable | + +------+ + Encounter Details +--------+ + + + + | Date | Type | Department | Care Team | Description | +--------+ + + + + | 03/16/ | Sticker Hand | Urology Fertility | Fabrizio Gu MD | Unspecified Male | | 2007 | | [address] | | Infertility (Primary | | | | Mailcode: [id number] | | Dx) | | | | [facility] | | | | | | and Healing, | | | | | | Building | | | | | | Floor [place], [place] | | | | | | [address] | | | | | | [phone] | | | +--------+ + + + [...]
--- OUTSIDE RECORDS SUMMARY | ~2019-12-14 | XMS | Encounter Summary ---
Demographics + + + | Address | [address] | | | [place] [address] | + + + | Home Phone | | + + + | Preferred Language | Unknown | + + + | Marital Status | | + + + | Mandaeism Affiliation | 1013 | + + + | Race | Unknown | + + + | Ethnic Group | Unknown | + + + Author + + + | Author | [facility] | | | and [place] | + + + | Organization | [facility] | | | and [place] | + + + | Address | Unknown | + + + | Phone | Unavailable | + + + Support + + + + + | Name | Relationship | Address | Phone | + + + + + | Adilene Mikel | ECON | [address] | | | | | [place] [address] | | + + + + + Care Team Providers + +------+ + | Care Housekeeper Cleaning Cooking Name | Role | Phone | + [...] [address] | | | | | [place], [place] | [place] [address] | | | | | [address] | [phone] | | | | | [phone] | | | +--------+ + + + [...]
--- OUTSIDE RECORDS SUMMARY | ~2019-12-14 | XMS | Encounter Summary ---
Demographics + + + | Address | [address] | | | [place] [address] | + + + | Home Phone | | + + + | Preferred Language | Unknown | + + + | Marital Status | | + + + | Muslim Affiliation | 1013 | + + + | Race | Unknown | + + + | Ethnic Group | Unknown | + + + Author + + + | Author | [facility] | | | and [place] | + + + | Organization | [facility] | | | and [place] | + + + | Address | Unknown | + + + | Phone | Unavailable | + + + Support + + + + + | Name | Relationship | Address | Phone | + + + + + | Adilenedannielle Morin | ECON | [address] | | | | | [place] [address] | | + + + + + Care Team Providers + +------+ + | Care Staff Mine Warfare Officer Name | Role | Phone | [...] | | | | Procedures | | [place] [address] | | | | | [place] OFFICE | | Phone: | | | | | CONSULTATION | | [phone] | | | | | NEW/ESTAB | | Fax: | | | | | PATIENT 40 | | [phone] | | | | | MIN | [...] W | [address] | beaver coronary | | | | [place], | [place], [place] | artery of beaver | | | | [place] [address] | [address] | heart without angina | | | | [phone] | | pectoris (Primary | | | [...] - 03/09/2019 12:30 PM PDT PATIENT NAME: Mauyr Morin : 1955: AGE: 63 y.o. PRIMARY CARE: No Physician on file OUTPATIENT FOLLOW UP VISIT Date of Service: 03/09/19 PROBLEMS ADDRESSED AT THIS VISIT: 1. Atherosclerosis of beaver coronary artery of beaver heart without angina pectoris PRESENT ILLNESS: Maury [...] on 02/24/2019 and [facility]. His hospital course was [...] chest pa ins and was seen in [facility]. There he was felt to be stable [...] essential oil Form: topically use only Ingredients: [place], Camphor, Peppermint, Ylang Ylang, Helichrysum, Blue Tansy, Blue C hamomile, and Osmanthus UNABLE TO FIND Med Name: Serenity doTERRA essential oil Forms: Topical and inhalation Ingredients: Lavender Flower, Cedarwood, Ho Wood [place], Ylang Ylang Flower, Marjoram [place], R catalina Chamomile Flower, Vetiver Root, Vanilla Soto Absolute, [place] UNABLE TO FIND Med Name: Breath doTERRA essential oil Form: Topical Ingredients: Carmelina [place], Eucalyptus [place], Peppermint Plant, Melaleuca [place], Lemon Peel, Ca rdamom Seed, Ravintsara [place], Ravensara [place] essential oils UNABLE TO FIND Med Name: Franknatanaelense JsA essential oil Form: Topical, Oral (put in a capsule or in liquids to drink) Ingredients: Resin from Boswellia carterii, sacra, papyrifera, and frereana, a-pinene, limo jose, a-thujene UNABLE TO FIND Med Name: On Guard Jsa essential oil Form: topical, oral. Ingredients: Wild [place] Peel, Clove [place], Cinnamon [place], Cinnamon Bark, Eucalyptus [place], an d Candace [place]/Flower essential oils. UNABLE TO FIND Med Name: [...] microalgae " UNABLE TO FIND Med Name: [facility] Food nutrient complex doTerra product Instructions: [...] diastase, glucoamylase, and peptidase, Peppermint, Roxana, and Harold, Made with sodium lauryl sulfate-free vegetable capsules [...] biloba, coenzyme Q10, quercetin, alpha-lipoic acid, and oheblq-g-wogafnneh), Peppermint , Roxana, and Harold, Made with sodium lauryl sulfate-free vegetable capsules [...] cardiomyopathy.. Electronically signed by: Maynor Agrawal MD [facility] 03/09/2019 Portions of this chart may have been created with [employer] voice recognition software. Occasi onal wrong-word or [...] | | Panel | | e | beaver coronary | 03/09/2019, Expires: | | | | | artery of beaver | 03/08/2020 | | | | | [...] Expected: | | | | e | beaver coronary | 03/09/2019, Expires: | | | | | artery of beaver | 03/08/2020 | | | | | [...] Diagnosis | + + | Atherosclerosis of beaver coronary artery of beaver heart without angina pectoris - | | Primary | + + | ST elevation myocardial infarction (STEMI) involving other coronary artery (HCC) | + + documented in this encounter
--- OUTSIDE RECORDS SUMMARY | ~2019-12-14 | XMS | Encounter Summary ---
Demographics + + + | Address | [address] | | | [place] [address] | + + + | Home Phone | | + + + | Preferred Language | Unknown | + + + | Marital Status | | + + + | Taoist Affiliation | CHR | + + + | Race | White | + + + | Ethnic Group | Not or | + + + Author + + + | Author | [facility] | + + + | Organization | [facility] | + + + | Address | Unknown | + + + | Phone | Unavailable | + + + Support + + + + + | Name | Relationship | Address | Phone | + + + + + | Adilene Morin | ECON | [address] | | | | | [place] [address] | | + + + + + Care Team Providers + +------+ + | Care Pyroglazer Name | Role | Phone | + [...] [id number] | | | | | | [place], [place] | | | | | | [address] | | | | | | [phone] | | | +--------+ + + + [...]
--- OUTSIDE RECORDS SUMMARY | ~2019-12-14 | XMS | Encounter Summary ---
Demographics + + + | Address | [address] | | | [place] [address] | + + + | Home Phone | | + + + | Preferred Language | Unknown | + + + | Marital Status | | + + + | Sikhism Affiliation | 1013 | + + + | Race | Unknown | + + + | Ethnic Group | Unknown | + + + Author + + + | Author | [facility] | | | and [place] | + + + | Organization | [facility] | | | and [place] | + + + | Address | Unknown | + + + | Phone | Unavailable | + + + Support + + + + + | Name | Relationship | Address | Phone | + + + + + | Adilene Tavera | ECON | [address] | | | | | [place] [address] | | + + + + + Care Team Providers + +------+ + | Care Msw Name | Role | Phone | + [...] | | | INTERFACES | [place] [address] | | | | | [phone] | [phone] | | | | | | | [...]
--- OUTSIDE RECORDS SUMMARY | ~2019-12-14 | XMS | Clinical Summary ---
Demographics + + + | Address | [address] | | | [place] [address] | + + + | Home Phone | | + + + | Preferred Language | Unknown | + + + | Marital Status | | + + + | Protestant Affiliation | 1013 | + + + | Race | Unknown | + + + | Ethnic Group | Unknown | + + + Author + + + | Author | [facility] | | | and [place] | + + + | Organization | [facility] | | | and [place] | + + + | Address | Unknown | + + + | Phone | Unavailable | + + + Support + + + + + | Name | Relationship | Address | Phone | + + + + + | Adilene Morin | ECON | [address] | | | | | [place] [address] | | + + + + + Care Team Providers + +------+ + | Care Pediatric Clinical Dietician Name | Role | Phone | + [...] | | | | | | | [place], | | | | | | | [...] | | | | | | | Loami, Ylang Viviang | | | | | | | | Flower, Marjoram | | | | | | | | Loami, Fabio | | | | | | [...] | | | | | | | Loami, Eucalyptus | | | | | | | | Loami, Peppermint | | | | | | | | Plant, Melaleuca | | | | | | | | Loami, Lemon Peel, | | | | | | | | Cardamom Seed, | | | | | | | | Ravintsara Loami, | | | | | | | | Ravensara Loami | | | | | | | [...] | | | | | | Wild [place]itt Peel, | | | | | | | | Clove [place], Cinnamon | | | | | | | | Loami, Cinnamon Bark, | | | | | | | | Eucalyptus Loami, | | | | | | | | and Candace | | | | | | | | Loami/Flower | | | | | | | [...] | | | | | | | zeokbv-z-zlbsucodu), | | | | | | | | Peppermint, Roxana, | | | | | | | | and Sultana, Made | | | | | | [...] | | | | | | | [place], | | | | | | | [...] | | | | | | | Loami, Ylang Ylang | | | | | | | | Flower, Marjoram | | | | | | | | Loami, Fabio | | | | | | [...] | | | | | | | Loami, Eucalyptus | | | | | | | | Loami, Peppermint | | | | | | | | Plant, Melaleuca | | | | | | | | Loami, Lemon Peel, | | | | | | | | Cardamom Seed, | | | | | | | | Ravintsara Loami, | | | | | | | | Ravensara Loami | | | | | | | [...] | | | | | | Wild Bullitt Peel, | | | | | | | | Clove [place], Cinnamon | | | | | | | | Loami, Cinnamon Bark, | | | | | | | | Eucalyptus Loami, | | | | | | | | and Candace | | | | | | | | Loami/Flower | | | | | | | [...] | 06/25/2019 | + + + | [place] (myocardial infarction) | 06/25/2019 | + + [...] 16 | Stent | | [place] | [id number] | 11/01/ | [id number] | | - [id number]: Qty: | | | SCIENTIFIC | [id number] | 2020 | [id number] | | 1 on 02/24/2019 by Nghia, | | | RICHARD - BSCI | 91 | | 50 / | | Maynor Mancera MD at [facility] | | | | | | /[id number] | | [facility] | | | | | | 644 [...] +-------+--------+ +--------+-------+---------+------+ | BCBS | BCBS | [id number] | 02/28/20 | | | PPO | [...] Person | Self | [birth year] | | [address] | | | al/Oliver | | 8 | [phone] | [place] | | | garth | | | 6 ([place]) | [address] | + +--------+ +--------+ + + Advance Directives + + + + + | Type | Date Recorded | Patient | Explanation | | | | 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
--- OUTSIDE RECORDS SUMMARY | ~2019-12-14 | XMS | Encounter Summary ---
Demographics + + + | Address | [address] | | | [place] [address] | + + + | Home Phone | | + + + | Preferred Language | Unknown | + + + | Marital Status | | + + + | Rastafari Affiliation | 1013 | + + + [...] + | Adilene Mikesadie | ECON | [address] | | | | | [place] [address] | | + + + + + Care Team Providers + +------+ + | Care Abstract Searcher Name | Role | Phone | + [...] [address] | | | | | [place], | [place], [place] | | | | | [place] [address] | [address] | | | | | [phone] | | | +--------+ + + + [...]
--- OUTSIDE RECORDS SUMMARY | ~2019-12-14 | XMS | Encounter Summary ---
Demographics + + + | Address | [address] | | | [place] [address] | + + + | Home Phone | | + + + | Preferred Language | Unknown | + + + | Marital Status | | + + + | Latter Day Affiliation | 1013 | + + + [...] + | Adilenedannielle Morin | ECON | [address] | | | | | [place] [address] | | + + + + + Care Team Providers + +------+ + | Care Cell Room Supervisor Name | Role | Phone | + +------+ + | Luís Goodrich PA-C | PCP | | + +------+ + Encounter Details +--------+ + + + + | Date | Type | Department | Care Team | Description | +--------+ + + + + | 07/18/ | Documentati | [facility] | Alexis Darling, | | | 2018 | on | CARDIOLOGY [facility] | Receiving Weigher | | | | | [address] | | | | | | [facility] [place] | | | | | | [address] | | | | | | [phone] | | | +--------+ + + + [...]
--- OUTSIDE RECORDS SUMMARY | ~2019-12-14 | XMS | Clinical Summary ---
Demographics + + + | Address | [address] | | | [place] [address] | + + + | Home Phone | | + + + | Preferred Language | Unknown | + + + | Marital Status | | + + + | Uatsdin Affiliation | CHR | + + + [...] + | Adilene Morin | ECON | [address] | | | | | [place] [address] | | + + + + + Care Team Providers + +------+ + | Care Sheetmetal Worker Name | Role | Phone | + +------+ + | No Pcp Per Patient | PCP | Unavailable | + +------+ + Source Comments JOSE is fully live on both [facility] and [facility] InPatient.[facility] Allergies No Known Allergies Medications No known [...] | | | | esent | | [place], [place] | | | | | | | | [address] | | +-------+--------+ +--------+ + +--------+ + +--------+ +--------+ + + | Guarantor Name | Accoun | Relation to | Date | Phone | Billing Address | | | t Type | Patient | of | | | | | | | | | | + +--------+ +--------+ + + | Maury Morin | Person | Self | [birth year] | | [address] | | | al/Fam | | 8 | [phone] | [place] [address] | | | garth | | | 2 (Home) | | + +--------+ +--------+ + + | Maury Morin | 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
--- OUTSIDE RECORDS SUMMARY | ~2019-12-14 | XMS | Encounter Summary ---
Demographics + + + | Address | [address] | | | [place] [address] | + + + | Home Phone | | + + + | Preferred Language | Unknown | + + + | Marital Status | | + + + | Yarsani Affiliation | 1013 | + + + | Race | Unknown | + + + | Ethnic Group | Unknown | + + + Author + + + | Author | [facility] | | | and [place] | + + + | Organization | [facility] | | | and [place] | + + + | Address | Unknown | + + + | Phone | Unavailable | + + + Support + + + + + | Name | Relationship | Address | Phone | + + + + + | Adilene Morin | ECON | [address] | | | | | [place] [address] | | + + + + + Care Team Providers + +------+ + | Care Services Engineer Name | Role | Phone | [...] + + | 02/24/ | [facility] | [facility] | Maynor Agrawal MD | CV Cor Angio | | 2019 | | MED CTR CV INTRA OP | [address] | | | | | [address] | [place] | | | | | [place] | [address] | | | | | [address] | | | | | | [phone] | | | +--------+---------+ + + + [...] ADMITTING DIAGNOSIS: STEMI (ST elevation myocardial infarction) (FORM[facility]LY [facility]) PRIMARY CARE PROVIDER: No Physician on file [...] pains. He was transferred via paramedics to [facility]. SUMMARIZED HOSPITAL COURSE: Patient was taken directly [...] some nonsustained VT in the immediate post OR days. He was treate d with amiodarone [...] Ingredients: Lav yoko Flower, Cedarwood, Ho Wood [place], Ylang Ylang Flower, Marjoram [place], Fabio Chamomile Fl ower, Vetiver Root, Vanilla Soto Absolute, Sand[place]wood UNABLE TO FIND Med Name: Breath doTERRA essential oil Form: Topical Ingredients: Carmelina [place], Eucalyp tus [place], Peppermint Plant, Melaleuca [place], Lemon Peel, Cardamom Seed, Ravintsara [place], Rave nsara [place] essential oils UNABLE TO FIND Med Name: Frankincense doTERRA essential oil Form: Topical, Oral (put in a capsule or in liquids to drink) Ingredients: Resin from Boswellia carterii, sacra, papyrifera, and frer eana, a-pinene, limonene, a-thujene UNABLE TO FIND Med Name: On Guard doTerra essential oil Form: topical, oral. Ingredients: Wild [place] Peel, Clove [place]ul[place], Cinnamon [place], Cinnamon Bark, Eucalyptus [place], and Ila [place]/Flower es sential oils. UNABLE TO FIND Med [...] microalgae" UNABLE TO FIND Med Name: Monserrat [facility] Food nutrient complex doTerra product [...] biloba, coenzyme Q10, quercetin, alpha-lipoic acid, and zatwug-y-fkcsogpxv ), Peppermint, Roxana, and [place], Made with sodium lauryl sulfate-free vegetable capsules [...] right foods Aim to make these foods incole of your diet. If you have diabetes, [...] cinnamon, pepper, and ila. Date Last Reviewed: 08/29/201719995464-[address] [employer] [place] [address]. All righ ts reserved. This information is [...] rest of your life. Date Last Reviewed: 01/27/201819990921-[address] [employer] [place] [address], [place] [address]. All righ ts reserved. This information is [...] heartbeat or fast pulse Date Last Reviewed: 08/29/201619999656-8516 [employer]. [address] [place] [address], [place] [address]. All righ ts reserved. This information is not intended as a substitute for professional medical care. Always follow your healthcare professional's instructions. Follow-up: In [address] Maynor Agrawal in cardiology clinic. Time spent on discharge planning: greater than 30 minutes Portions of this chart may have been created with Siine voice recognition software. Occasi onal wrong-word or [...] pepper, and ila. Date Last Reviewed: 08/29/[address] [employer] [place] [address]. All righ ts reserved. This information is [...] of your life. Date Last Reviewed: 01/27/[address] [employer] [place] [address]. All righ ts reserved. This information is [...] heartbeat or fast pulse Date Last Reviewed: 08/29/201619997920-2579 [employer]. [address] [place] [address], [place] [address]. All righ ts reserved. This information is [...] | | | | | | | [place], | | | | | | | [...] | | | | | | | [place], Ylang Ylang | | | | | | | Flower, Marjoram | | | | | | | [place], Fabio | | | | | | [...] | | | | | | | [place], Eucalyptus | | | | | | | [place], Peppermint | | | | | | | Plant, Melaleuca | | | | | | | [place], Lemon Peel, | | | | | | | Cardamom Seed, | | | | | | | Ravintsara [place], | | | | | | | Ravensara [place] | | | | | | | [...] | | | | | | Wild [place] Peel, | | | | | | | Clove [place], Cinnamon | | | | | | | [place], Cinnamon Bark, | | | | | | | Eucalyptus [place], | | | | | | | and Ila | | | | | | | [place]/Flower | | | | | | | [...] | | | | | | and [place], Made | | | | | | [...] | | | | | | | sxlrll-v-cmkbearvv), | | | | | | | Peppermint, Roxana, | | | | | | | and [place], Made | | | | | | [...] + + + +---------+ + + | [place]-3 Fatty | Take 870 mg by mouth [...] Medication added: Medication: Prior to Admission Sig: [place]-3 fatty acids 435 mg caps 870 mg by mouth once daily Unable to find: Copaiba doTERRA essential oil Forms: oral and topical Ingredients: Resin from Copaifera reticulata, officinalis, coriacea, and langsdorffii, -c aryophyllene Unable to find: Deep Blue essential oil Form: topically use only Ingredients: [place], Camphor, Peppermint, Ylang Ylang, Helichrysum, Blue Tansy, Blue C hamomile, and Osmanthus Unable to find: Serenity essential oil Forms: Topical and inhalation Ingredients: Lavender Flower, Cedarwood, Ho Wood [place], Ylang Ylang Flower, Marjoram [place], R catalina Chamomile Flower, Vetiver Root, Vanilla Soto Absolute, [facility] Sandalwood Unable to find: Breath doTerra essential oil Form: Topical Ingredients: Carmelina [place], Eucalyptus [place], Peppermint Plant, Melaleuca [place], Lemon Peel, Ca rdamom Seed, Ravintsara [place], Ravensara [place] essential oils Unable to find: Frankincense doTERRA essential oil Form: Topical, Oral (put in a capsule o r in liquids to drink) Ingredients: Resin from Boswellia carterii, sacra, papyrifera, and frereana, a-pinene, limo jose, a-thujene Unable to find: On Guard doTerra essential oil Form: topical, oral. Ingredients: Wild [place] Peel, Clove [place]ul[place], Cinnamon [place], Cinnamon Bark, Eucalyptus [place], an d Ila [place]/Flower essential oils. xEO Bereket (essential oil omega [...] powerful antioxidant carotenoid* harvested from microalgae " [facility] Food nutrient complex caps (doTerra essential oils) [...] biloba, coenzyme Q10, quercetin, alpha-lipoic acid, and aawwyw-n-ihnyztcui), Peppermint , Roxana, and Brad, Made with sodium lauryl sulfate-free vegetable capsules Last Recreational Substances, Tobacco & Alcohol use : Drug: Route Frequency: Last Used: Tobacco Smoking 5 packs/ weeks 02/24/19 @12 pm Tobacco Chewing 1 can/week 02/24/19 Alcohol 32 oz per day 02/21/19 PM Patient states "that's all I drink" Other: Medication: Prior to Admission Sig: Patient taking differently RESTAURANT MGR as: Aspirin 81 mg tab 1 tab by mouth once daily Not taking Patient states he quit taking ~1 weeks ago because he noticed his legs stopped aching whe n he wasn't taking it. Best possible RESTAURANT MGR medication list after pharmacy review: PT REPORTED TAKING NOT TAKING Medication Sig Last Dose Dispense DocDedra Etienne aspirin 81 mg EC tablet Take 81 mg by mouth Daily. Not Taking Historical ProviderMD [place]-3 Fatty Acids (FISH OIL) 435 MG CAPS Take 870 mg by mouth Daily. Taking Historical ProviderMD UNABLE TO FIND Med Name: Tonyba JsA Essential oil Forms: oral and topical Ingredients: Resin from Copaifera reticulata, officinalis, coriacea, and langsdorffii, -c aryophyllene Taking Historical ProviderMD UNABLE TO FIND Med Name: Deep Blue doTerra essential oil Form: topically use only Ingredients: [place], Camphor, Peppermint, Ylang Ylang, Helichrysum, Blue Tansy, Blue C hamomile, and Osmanthus Taking Historical ProviderMD UNABLE TO FIND Med Name: Serenity doTERRA essential oil Forms: Topical and inhalation Ingredients: Lavender Flower, Cedarwood, Ho Wood [place], Ylang Ylang Flower, Marjoram [place], R catalina Chamomile Flower, Vetiver Root, Vanilla Soto Absolute, Sandalwood Taking Hist orical ProviderMD UNABLE TO FIND Med Name: Breath doTERRA essential oil Form: Topical Ingredients: Carmelina [place], Eucalyptus [place], Peppermint Plant, Melaleuca [place], Lemon Peel, Ca rdamom Seed, Ravintsara [place], Ravensara Rockleigh essential oils Taking Historical ProviderMD UNABLE TO FIND Med Name: Frankincense doTERRA essential oil Form: Topical, Oral (put in a capsule or in liquids to drink) Ingredients: Resin from Boswellia carterii, sacra, papyrifera, and frereana, a-pinene, limo jose, a-thujene Taking Historical ProviderMD UNABLE TO FIND Med Name: On Guard doTerra essential oil Form: topical, oral. Ingredients: Wild [place] Peel, Clove Beulah, Cinnamon [place], Cinnamon Bark, Eucalyptus [place], an d Ila [place]/Flower essential oils. Taking Historical MD Lowell UNABLE [...] MD Lowell UNABLE TO FIND Med Name: [facility] Food nutrient complex doTerra product Instructions: take [...] biloba, coenzyme Q10, quercetin, alpha-lipoic acid, and vkvtyf-q-rjpdhouto), Peppermint , Roxana, and Brad, Made with sodium lauryl sulfate-free vegetable capsules Last Taking Historical ProviderMD Medication review performed and electronically signed by Laura Gonzalez, Head And Neck Surgeon 2018 12:12 Reviewed by Efrain Herrera PharmDale [...] consider anterior injury or acute infarct ACUTE OR / STEMI T wave abnormality, consider lateral ischemia Nonspecific ST abnormality Inferior leads Abnormal ECG No previous ECGs available Confirmed by AXEL TONEY MD ([id number]) on 02/24/2019 5:47:08 PM Troponin I Result [...] -- ASSESSMENT AND PLAN: 1. NSVT post OR. 2. STEMI with rca stent 3. CAD with prior rca stent Load with Amiordarone. Pt intolerant of beta blockers. Will start Verapramil. Electronically Signed by: Maynor Agrawal MD [facility] 02/25/2019 12:35 [facility] documented in this enco unter Plan [...] | | | | AXEL TONEY MD ([id number]) | | | | | | on [...] mL/min/1.73m2 | [facility] | | | [facility] | | | MEDICAL | | | [...] [address] | [place] | [phone] | | [facility] | | [address] | | | - LABORATORY | | [...] [address] | [place] | [phone] | | [facility] | | [address] | | | - LABORATORY | | | | + + + + + Troponin I (02/26/2019 4:54 AM PDT) + + + + + + | Component | Value | Ref Range | Performed | Pathologist | | | | | At | Signature | + + + + + + | Troponin I | 1.66 ()Comment: New | <0.06 ng/mL | [place] | | | | method in use as of | | [facility] | | | | January [...] ST. | [address] | [place] | [phone] | | [facility] | | [address] | | | - LABORATORY | | [...] [address] | [place] | [phone] | | [facility] | | [address] | | | - LABORATORY | | [...] MD | | | | | | ([id number]) on 02/26/2019 | | | | | [...] [address] | [place] | [phone] | | [facility] | | [address] | | | - LABORATORY | | [...] [address] | [place] | [phone] | | [facility] | | [address] | | | - LABORATORY | | [...] method in use as of | | [facility] | | | | January [...] [address] | [place] | [phone] | | [facility] | | [address] | | | - LABORATORY | | [...] + | [facility] | [address] | [place] | [phone] | | [facility] | | [address] | | | - LABORATORY | | [...] [address] | [place] | [phone] | | [facility] | | [address] | | | - LABORATORY | | [...] mL/min/1.73m2 | [facility] | | | [place] | | | MEDICAL | | | [...] + | [facility] | [address] | [place] | [phone] | | [facility] | | [address] | | | - LABORATORY | | [...] method in use as of | | [facility] | | | | January [...] [address] | [place] | [phone] | | [facility] | | [address] | | | - LABORATORY | | [...] | | | | | infarct ACUTE OR / | | | | | | [...] | | | | AXEL TONEY MD ([id number]) | | | | | | on [...] + + | Performing | Address | City[facility] | Phone Number | | [...] + | [facility] | [address] | [place] | [phone] | | [facility] | | [address] | | | - LABORATORY | | [...] + | [facility] | [address] | [place] | [phone] | | [facility] | | [address] | | | - LABORATORY | | [...] [address] | [place] | [phone] | | [facility] | | [address] | | | - LABORATORY | | [...] [address] | [place] | [phone] | | [facility] | | [address] | | | - LABORATORY | | [...] [address] | [place] | [phone] | | [facility] | | [address] | | | - LABORATORY | | [...] + | [facility] | [address] | [place], [place] | [phone] | | [facility] | | [address] | | | - LABORATORY | | [...] [address] | [place] | [phone] | | [facility] | | [address] | | | - LABORATORY | | [...] + | [facility] | [address] | [place] | [phone] | | [facility] | | [address] | | | - LABORATORY | | [...] [address] | [place] | [phone] | | [facility] | | [address] | | | - LABORATORY | | [...]
--- OUTSIDE RECORDS SUMMARY | ~2019-12-14 | XMS | Encounter Summary ---
Demographics + + + | Address | [address] | | | [place] [address] | + + + | Home Phone | | + + + | Preferred Language | Unknown | + + + | Marital Status | | + + + | Islam Affiliation | 1013 | + + + | Race | Unknown | + + + | Ethnic Group | Unknown | + + + Author + + + | Author | [facility] | | | and [place] | + + + | Organization | [facility] | | | and [place] | + + + | Address | Unknown | + + + | Phone | Unavailable | + + + Support + + + + + | Name | Relationship | Address | Phone | + + + + + | Adilenedannielle Tavera | ECON | [address] | | | | | [place] [address] | | + + + + + Care Team Providers + +------+ + | Care Clamp Operator Name | Role | Phone | + +------+ + | Luís Goodrich PA-C | PCP | | + +------+ + Encounter Details +--------+ + + + + | Date | Type | Department | Care Team | Description | +--------+ + + + + | 08/19/ | Orders Only | [facility] | Chuy Kelly MD | | | 2015 | | CARDIOLOGY [place] | [address] | | | | | [address] | [place] [address] | | | | | [place], [place] | [phone] | | | | | [address] | | | | | | [phone] | | | +--------+ + + + [...] PS: 59.93 cm/s VERT PS: 41.92 cm/s Jewelry Sales Representative: ELGIN | | | Authenticated by: Chuy Kelly MD Report Date/Time: -- | | | [id number] | | + + + + --------+ [...] | PS: 59.93 cm/sVERT PS: 41.92 cm/s Jewelry Sales Representative: DHAuthenticated by: Chuy Kelly | | MDReport Date/Time: -- [id number] IMPRESSION: 1. Minimal intimal thickening | | [...] |VERT PS: 41.92 cm/s | | | |Jewelry Sales Representative: ELGIN | |Authenticated by: Chuy Kelly MD | |Report Date/Time: -- [id number] | | | |IMPRESSION: | |1. Minimal intimal thickening in right internal carotid artery. | |2. Minimal disease of the left internal carotid artery. | + --------+ documented in this encounter Visit Diagnoses Not on filedocumented in this encounter"
--- OUTSIDE RECORDS SUMMARY | ~2019-12-14 | XMS | Encounter Summary ---
Demographics + + + | Address | [address] | | | [place] [address] | + + + | Home Phone | | + + + | Preferred Language | Unknown | + + + | Marital Status | | + + + | Catholic Affiliation | 1013 | + + + | Race | Unknown | + + + | Ethnic Group | Unknown | + + + Author + + + | Author | [facility] | | | and [place] | + + + | Organization | [facility] | | | and [place] | + + + | Address | Unknown | + + + | Phone | Unavailable | + + + Support + + + + + | Name | Relationship | Address | Phone | + + + + + | Adilene Morin | ECON | [address] | | | | | [place] [address] | | + + + + + Care Team Providers + +------+ + | Care Police District Switchboard Operator Name | Role | Phone | [...] + + | 02/24/ | Hospital | [facility] | Kilo Valle MD | ST elevation | | 2019 - | Encounter | MED CTR ICU [address] | [address] | myocardial | | | | [place], | [place], [place] | infarction involving | | 02/26/ | | [place] [address] | [address] | right coronary | | 2019 | | [phone] | | artery (HCC) | | | | | Maynor Agrawal MD | | | | | | [address] | | | | | | [place], [place] | | | | | | [address] | | | | | | | [...] ADMITTING DIAGNOSIS: STEMI (ST elevation myocardial infarction) ([facility]) PRIMARY CARE PROVIDER: No Physician on file [...] pains. He was transferred via paramedics to [facility]. SUMMARIZED HOSPITAL COURSE: Patient was [...] some nonsustained VT in the immediate post [place] days. He was treate d with amiodarone [...] Ingredients: Lav yoko Flower, Cedarwood, Ho Wood Hendrum, Ylang Ylang Flower, Marjoram Hendrum, Fabio Chamomile Fl ower, Vetiver Root, Vanilla Soto Absolute, Sandalwood UNABLE TO FIND Med Name: Breath JsA essential oil Form: Topical Ingredients: Carmelina Hendrum, Eucalyp tus Hendrum, Peppermint Plant, Melaleuca Hendrum, Lemon Peel, Cardamom Seed, Ravintsara Hendrum, Rave nsara Hendrum essential oils UNABLE TO FIND Med Name: Genaro WeinsteinA essential oil Form: Topical, Oral (put in a capsule or in liquids to drink) Ingredients: Resin from Boswellia carterii, sacra, papyrifera, and frer eana, a-pinene, limonene, a-thujene UNABLE TO FIND Med Name: On Guard Jsa essential oil Form: topical, oral. Ingredients: Wild Leakey Peel, Clove [place], Cinnamon Hendrum, Cinnamon Bark, Eucalyptus Hendrum, and Ila Hendrum/Flower es sential oils. UNABLE TO FIND Med [...] microalgae" UNABLE TO FIND Med Name: [facility] Food nutrient complex doTerra product [...] glucoamylase, and peptidase, Pe ppermint, Roxana, and [place], Made with sodium lauryl sulfate-free vegetable capsules [...] biloba, coenzyme Q10, quercetin, alpha-lipoic acid, and [id number]-[id number] ), Peppermint, Roxana, and Brad, Made with [...] cinnamon, pepper, and ila. Date Last Reviewed: 08/29/201719996436-8492 [employer]. [address] [place] [address]. All righ ts reserved. This information is [...] rest of your life. Date Last Reviewed: 01/27/201819997259-7589 [email or web address]. [address] [place] [address]. All righ ts reserved. This information is [...] heartbeat or fast pulse Date Last Reviewed: 08/29/201619992121-0264 [email or web address]. [address] [place] [address]. All righ ts reserved. This information is not intended as a substitute for professional medical care. Always follow your healthcare professional's instructions. Follow-up: In [address] Maynor Agrawal in cardiology clinic. Time spent on discharge planning: greater than 30 minutes Portions of this chart may have been created with [employer] voice recognition software. Occasi onal wrong-word or [...] cinnamon, pepper, and ila. Date Last Reviewed: 08/29/201719990823-8334 [email or web address]. [address] [place] [address]. All righ ts reserved. This information is [...] rest of your life. Date Last Reviewed: 01/27/201819993617-6789 [employer]. [address] [place] [address], [place] [address]. All righ ts reserved. This information is [...] heartbeat or fast pulse Date Last Reviewed: 08/29/201619992881-6659 [employer]. [address] [place] [address], [place] [address]. All righ ts reserved. This information is [...] | | | | | | | [place], | | | | | | | [...] | | | | | | | Hendrum, Ylang Ylang | | | | | | | Flower, Marjoram | | | | | | | Hendrum, Fabio | | | | | | [...] | | | | | | | Hendrum, Eucalyptus | | | | | | | Hendrum, Peppermint | | | | | | | Plant, Melaleuca | | | | | | | Hendrum, Lemon Peel, | | | | | | | Cardamom Seed, | | | | | | | Ravintsara Hendrum, | | | | | | | Ravensara Hendrum | | | | | | | [...] | | | | | | Wild Leakey Peel, | | | | | | | Clove [place], Cinnamon | | | | | | | Hendrum, Cinnamon Bark, | | | | | | | Eucalyptus Hendrum, | | | | | | | and Ila | | | | | | | Hendrum/Flower | | | | | | | [...] | | | | | serving of ProtonMailO Bereket | | | | | | [...] | | | | | fatty acids. ProtonMailO | | | | | | | [...] | | | | | | | ycudsp-[id number]), | | | | | | | Peppermint, Roxana, | | | | | | | and [place], Made | | | | | | [...] + + + +---------+ + + | Trout-3 Fatty | Take 870 mg by mouth [...] and directions X Pharmacy list names: [facility] Vaccines up to date? Yes No Unsure Influenza X Pneumococcal X Tdap X Shingles X Noted medications discrepancies or medication-related issues: Medication added: Medication: Prior to Admission Sig: Trout-3 fatty acids 435 mg caps 870 mg by mouth once daily Unable to find: Copaiba doTERRA essential oil Forms: oral and topical Ingredients: Resin from Copaifera reticulata, officinalis, coriacea, and langsdorffii, -c aryophyllene Unable to find: Deep Blue essential oil Form: topically use only Ingredients: [place], Camphor, Peppermint, Ylang Ylang, Helichrysum, Blue Tansy, Blue C hamomile, and Osmanthus Unable to find: Serenity essential oil Forms: Topical and inhalation Ingredients: Lavender Flower, Cedarwood, Ho Wood Hendrum, Ylang Ylang Flower, Marjoram Hendrum, R catalina Chamomile Flower, Vetiver Root, Vanilla Soto Absolute, Sandalwood Unable to find: Breath doTerra essential oil Form: Topical Ingredients: Carmelina Hendrum, Eucalyptus Hendrum, Peppermint Plant, Melaleuca Hendrum, Lemon Peel, Ca rdamom Seed, Ravintsara Hendrum, Ravensara Hendrum essential oils Unable to find: Frankincense doTERRA essential oil Form: Topical, Oral (put in a capsule o r in liquids to drink) Ingredients: Resin from Boswellia carterii, sacra, papyrifera, and frereana, a-pinene, limo jose, a-thujene Unable to find: On Guard doTerra essential oil Form: topical, oral. Ingredients: Wild Leakey Peel, Clove [place], Cinnamon Hendrum, Cinnamon Bark, Eucalyptus Hendrum, an d Ila Hendrum/Flower essential oils. xEO Bereket (essential oil omega [...] powerful antioxidant carotenoid* harvested from microalgae " [facility] Food nutrient complex caps (doTerra essential [...] diastase, glucoamylase, and peptidase, Peppermint, Roxana, and [place], Made with sodium lauryl sulfate-free vegetable capsules [...] biloba, coenzyme Q10, quercetin, alpha-lipoic acid, and ydygyg-e-wxgfyjing), Peppermint , Roxana, and [place], Made with sodium lauryl sulfate-free vegetable capsules Last Recreational Substances, Tobacco & Alcohol use : Drug: Route Frequency: Last Used: Tobacco Smoking 5 packs/ weeks 02/24/19 @12 pm Tobacco Chewing 1 can/week 02/24/19 Alcohol 32 oz per day 02/21/19 PM Patient states "that's all I drink" Other: Medication: Prior to Admission Sig: 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 Best possible LIGHTING ENGINEERING TECHNICIAN medication list after pharmacy review: PT REPORTED TAKING NOT TAKING Medication Sig Last Dose Dispense Doc. Provider aspirin 81 mg EC tablet Take 81 mg by mouth Daily. Not Taking Historical ProviderMD Trout-3 Fatty Acids (FISH OIL) 435 MG CAPS Take 870 mg by mouth Daily. Taking Historical ProviderMD UNABLE TO FIND Med Name: Copaiba AnnieERRA Essential oil Forms: oral and topical Ingredients: Resin from Copaifera reticulata, officinalis, coriacea, and langsdorffii, -c aryophyllene Taking Historical Provider, UNABLE TO FIND Med Name: Deep Blue doTerra essential oil Form: topically use only Ingredients: [place], Camphor, Peppermint, Ylang Ylang, Helichrysum, Blue Tansy, Blue C hamomile, and Osmanthus Taking Historical ProviderMD UNABLE TO FIND Med Name: Serenity doTERRA essential oil Forms: Topical and inhalation Ingredients: Lavender Flower, Cedarwood, Ho Wood Hendrum, Ylang Ylang Flower, Marjoram Hendrum, R catalina Chamomile Flower, Vetiver Root, Vanilla Soto Absolute, Sandalwood Taking Hist orical ProviderMD UNABLE TO FIND Med Name: Breath doTERRA essential oil Form: Topical Ingredients: Carmelina Hendrum, Eucalyptus Hendrum, Peppermint Plant, Melaleuca Hendrum, Lemon Peel, Ca rdamom Seed, Ravintsara Hendrum, Ravensara Hendrum essential oils Taking Historical MD [place]ell UNABLE TO FIND Med Name: Frankincense doTERRA essential oil Form: Topical, Oral (put in a capsule or in liquids to drink) Ingredients: Resin from Boswellia carterii, sacra, papyrifera, and frereana, a-pinene, limo jose, a-thujene Taking Historical MD [place] UNABLE TO FIND Med Name: On Guard doTerra essential oil Form: topical, oral. Ingredients: Wild Leakey Peel, Clove [place], Cinnamon Hendrum, Cinnamon Bark, Eucalyptus Hendrum, an d Ila Hendrum/Flower essential oils. Taking Sagar Etienne MD UNABLE [...] [place] UNABLE TO FIND Med Name: [facility] Food nutrient complex doTerra product [...] biloba, coenzyme Q10, quercetin, alpha-lipoic acid, and zcndny-c-qycqxfimg), Peppermint , Roxana, and Brad, Made with sodium lauryl sulfate-free vegetable capsules Last Taking Historical ProviderMD Medication review performed and electronically signed by Laura Gonzalez, Vegetable Picker 2018 12:12 Reviewed by Efrain Herrera, PharmD [...] consider anterior injury or acute infarct ACUTE LA / STEMI T wave abnormality, consider lateral ischemia Nonspecific ST abnormality Inferior leads Abnormal ECG No previous ECGs available Confirmed by FENG OLIVER, AXEL ([id number]) on 02/24/2019 5:47:08 PM Troponin I Result [...] -- ASSESSMENT AND PLAN: 1. NSVT post LA. 2. STEMI with rca stent 3. CAD with prior rca stent Load with Amiordarone. Pt intolerant of beta blockers. Will start Verapramil. Electronically Signed by: Maynor Agrawal MD [facility] 02/25/2019 12:35 [facility] documented in this enco unter Plan [...] | | | | AXEL TONEY MD ([id number]) | | | | | | on [...] mL/min/1.73m2 | [facility] | | | [place] | | | MEDICAL | | | [...] [address] | [place] | [phone] | | [facility] | | [address] | | | - LABORATORY | | [...] [address] | [place] | [phone] | | [facility] | | [address] | | | - LABORATORY | | | | + + + + + Troponin I (02/26/2019 4:54 AM PDT) + + + + + + | Component | Value | Ref Range | Performed | Pathologist | | | | | At | Signature | + + + + + + | Troponin I | 1.66 ()Comment: New | <0.06 ng/mL | [facility] | | | | method in use as of | | [facility] | | | | January [...] ST. | [address] | [place] | [phone] | | [facility] | | [address] | | | - LABORATORY | | [...] [address] | [place] | [phone] | | [facility] | | [address] | | | - LABORATORY | | [...] MD | | | | | | ([id number]) on 02/26/2019 | | | | | [...] + | [facility] | [address] | [place] | [phone] | | [facility] | | [address] | | | - LABORATORY | | [...] [address] | [place] | [phone] | | [facility] | | [address] | | | - LABORATORY | | [...] in use as of | | [facility] | | | | January 25, 2019. [...] + | [facility] | [address] | [place] | [phone] | | [facility] | | [address] | | | - LABORATORY | | [...] + | [facility] | [address] | [place] | [phone] | | [facility] | | [address] | | | - LABORATORY | | [...] ST. | [address] | [place], [place] | [phone] | | [facility] | | [address] | | | - LABORATORY | | [...] mL/min/1.73m2 | [facility] | | | [place] | | | MEDICAL | | | [...] ST. | [address] | [place], [place] | [phone] | | [facility] | | [address] | | | - LABORATORY | | [...] [address] | [place] | [phone] | | [facility] | | [address] | | | - LABORATORY | | [...] | | | | | infarct ACUTE LA / | | | | | | [...] | | | | FENG OLIVER, AXEL ([id number]) | | | | | | on [...] [address] | [place] | [phone] | | [facility] | | [address] | | | - LABORATORY | | [...] [address] | [place] | [phone] | | [facility] | | [address] | | | - LABORATORY | | [...] + | [facility] | [address] | [place], [place] | [phone] | | [facility] | | [address] | | | - LABORATORY | | [...] + | [facility] | [address] | [place] | [phone] | | [facility] | | [address] | | | - LABORATORY | | [...] [address] | [place] | [phone] | | [facility] | | [address] | | | - LABORATORY | | [...] [address] | [place] | [phone] | | [facility] | | [address] | | | - LABORATORY | | [...] + | [facility] | [address] | [place] | [phone] | | [facility] | | [address] | | | - LABORATORY | | [...] [address] | [place] | [phone] | | [facility] | | [address] | | | - LABORATORY | | [...] TIAN. | [address] | [place], [place] | [phone] | | [facility] | | [address] | | | - LABORATORY | | | | + + + + + documented in this encounter Visit Diagnoses + + | Diagnosis | + + | STEMI (ST elevation myocardial infarction) ([facility]) - Primary Acute myocardial | | infarction, unspecified site, episode of care unspecified | + + | ST elevation myocardial infarction involving right coronary artery ([facility]) Acute | | myocardial infarction of inferoposterior [...]
--- OUTSIDE RECORDS SUMMARY | ~2019-12-14 | XMS | Encounter Summary ---
Demographics + + + | Address | [address] | | | [place] [address] | + + + | Home Phone | | + + + | Preferred Language | Unknown | + + + | Marital Status | | + + + | Church Affiliation | CHR | + + + | Race | White | + + + | Ethnic Group | Not or | + + + Author + + + | Author | [facility] | + + + | Organization | [facility] | + + + | Address | Unknown | + + + | Phone | Unavailable | + + + Support + + + + + | Name | Relationship | Address | Phone | + + + + + | Adilene Morin | ECON | [address] | | | | | [place] [address] | | + + + + + Care Team Providers + +------+ + | Care Atm Manager Name | Role | Phone | + [...] | | | | [place], | [place], | | | | | | [place] [address] | [place] | | | | | | Phone: | [phone] | | | | | | [phone] | Phone: | | | | | | Fax: | [phone] | | | | | | [phone] | Fax: | | | | | | | [phone] | +--------+---------+ + + + + Encounter [...] [address] | | | | | [facility] | [place], [place] | | | | | and Healing, | [address] | | | | | [facility] | [phone] | | | | | Floor [place], [place] | | | | | | [address] | | | | | | [phone] | | | +--------+---------+ + + + [...] arter y to the ring finger 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
--- OUTSIDE RECORDS SUMMARY | ~2019-12-14 | XMS | Encounter Summary ---
Demographics + + + | Address | [address] | | | [place] [address] | + + + | Home Phone | | + + + | Preferred Language | Unknown | + + + | Marital Status | | + + + | Advent Affiliation | 1013 | + + + | Race | Unknown | + + + | Ethnic Group | Unknown | + + + Author + + + | Author | [facility] | | | and [place] | + + + | Organization | [facility] | | | and [place] | + + + | Address | Unknown | + + + | Phone | Unavailable | + + + Support + + + + + | Name | Relationship | Address | Phone | + + + + + | Adilene Morin | ECON | [address] | | | | | [place] [address] | | + + + + + Care Team Providers + +------+ + | Care Heel Painter Name | Role | Phone | + [...] | | | | | [facility] | [place] [address] | | | | | [phone] | [phone] | | | | | | | [...] | | | femoral artery and a 6-[place]izen [place] arterial sheath was placed. A 6-[place]izen [place] | | | JL4 catheter was then advanced under fluoroscopic guidance and | | | engaged with the ostium of the left main coronary artery, and | | | multiple projections of the left coronary systems were obtained with | | | the use of contrast injections. The catheter was then exchanged to a | | | 6-Citizen [place] JR4 catheter, which was advanced under fluoroscopic guidance | | | and engaged with the ostium of the right coronary artery, and | | | multiple projections of the right coronary artery were obtained with | | | the use of contrast injections. The catheter was then exchanged to a | | | 6-Citizen [place] pigtail catheter which was advanced into the [...] obtained via right femoral artery and a 6-Citizen [place] arterial sheath was | | placed. A 6-Citizen [place] JL4 catheter was then advanced under fluoroscopic | | guidance and engaged with the ostium of the left main coronary artery, and | | multiple projections of the left coronary systems were obtained with the | | use of contrast injections. The catheter was then exchanged to a 6-Citizen [place] | | JR4 catheter, which was advanced under fluoroscopic guidance and engaged | | with the ostium of the right coronary artery, and multiple projections of | | the right coronary artery were obtained with the use of contrast | | injections. The catheter was then exchanged to a 6-Citizen [place] pigtail catheter | | which was advanced [...]
--- OUTSIDE RECORDS SUMMARY | ~2019-12-14 | XMS | Encounter Summary ---
Demographics + + + | Address | [address] | | | [place] [address] | + + + | Home Phone | | + + + | Preferred Language | Unknown | + + + | Marital Status | | + + + | Adventist Affiliation | 1013 | + + + | Race | Unknown | + + + | Ethnic Group | Unknown | + + + Author + + + | Author | [facility] | | | and [place] | + + + | Organization | [facility] | | | and [place] | + + + | Address | Unknown | + + + | Phone | Unavailable | + + + Support + + + + + | Name | Relationship | Address | Phone | + + + + + | Adilenedannielle Morin | ECON | [address] | | | | | [place] [address] | | + + + + + Care Team Providers + +------+ + | Care Audio Visual Collections Coordinator Name | Role | Phone | + +------+ + PCP | Unavailable | + +------+ + Encounter Details +--------+ + + + + | Date | Type | Department | Care Team | Description | +--------+ + + + + | 04/24/ | Hospital | [facility] | | | | 2007 | Encounter | MED CTR LABORATORY | | | | | | [address] | | | | | | [place] | | | | | | [address] | | | | | | [phone] | | | +--------+ + + + [...]
--- OUTSIDE RECORDS SUMMARY | ~2019-12-14 | XMS | Encounter Summary ---
Demographics + + + | Address | [address] | | | [place] [address] | + + + | Home Phone | | + + + | Preferred Language | Unknown | + + + | Marital Status | | + + + | Baptism Affiliation | 1013 | + + + | Race | Unknown | + + + | Ethnic Group | Unknown | + + + Author + + + | Author | [facility] | | | and [place] | + + + | Organization | [facility] | | | and [place] | + + + | Address | Unknown | + + + | Phone | Unavailable | + + + Support + + + + + | Name | Relationship | Address | Phone | + + + + + | Adilene Morin | ECON | [address] | | | | | [place] [address] | | + + + + + Care Team Providers + +------+ + | Care Premix Operator Concentrate Name | Role | Phone | + [...] + + | 03/01/ | Telephone | [facility] | Maynor Agrawal MD | Other (issue with | | 2019 | | CARDIOLOGY [address] | medication) | | | | [place], | [place] | | | | | [place] [address] | [address] | | | | | [phone] | | | +--------+ + + + [...]
--- OUTSIDE RECORDS SUMMARY | ~2019-12-14 | XMS | Encounter Summary ---
Demographics + + + | Address | [address] | | | [place] [address] | + + + | Home Phone | | + + + | Preferred Language | Unknown | + + + | Marital Status | | + + + | Hoahaoism Affiliation | 1013 | + + + | Race | Unknown | + + + | Ethnic Group | Unknown | + + + Author + + + | Author | [facility] | | | and [place] | + + + | Organization | [facility] | | | and [place] | + + + | Address | Unknown | + + + | Phone | Unavailable | + + + Support + + + + + | Name | Relationship | Address | Phone | + + + + + | Adilene Mikel | ECON | [address] | | | | | [place] [address] | | + + + + + Care Team Providers + +------+ + | Care Milling/Polishing Operator Name | Role | Phone | + +------+ + PCP | Unavailable | + +------+ + Encounter Details +--------+ + + + + | Date | Type | Department | Care Team | Description | +--------+ + + + + | 07/24/ | Hospital | [facility] | | | | 2007 | Encounter | MED CTR XRAY [address] | | | | [address] | | | | | | [place] [address] | | | | | | [phone] | | | +--------+ + + + [...]
--- OUTSIDE RECORDS SUMMARY | ~2019-12-14 | XMS | Encounter Summary ---
Demographics + + + | Address | [address] | | | [place] [address] | + + + | Home Phone | | + + + | Preferred Language | Unknown | + + + | Marital Status | | + + + | Sabianism Affiliation | 1013 | + + + | Race | Unknown | + + + | Ethnic Group | Unknown | + + + Author + + + | Author | [facility] | | | and [place] | + + + | Organization | [facility] | | | and [place] | + + + | Address | Unknown | + + + | Phone | Unavailable | + + + Support + + + + + | Name | Relationship | Address | Phone | + + + + + | Adilene Morin | ECON | [address] | | | | | [place] [address] | | + + + + + Care Team Providers + +------+ + | Care Composing Room Supervisor Name | Role | Phone [...] | | | | | [facility] | [place] [address] | | | | | [phone] | [phone] | | | | | | | [...] | | | femoral artery and a 6-Georgian arterial sheath was placed. A 6-Georgian | | | JL4 catheter was then advanced under fluoroscopic guidance and | | | engaged with the ostium of the left main coronary artery, and | | | multiple projections of the left coronary systems were obtained with | | | the use of contrast injections. The catheter was then exchanged to a | | | 6-Georgian JR4 catheter, which was advanced under fluoroscopic guidance | | | and engaged with the ostium of the right coronary artery, and | | | multiple projections of the right coronary artery were obtained with | | | the use of contrast injections. The catheter was then exchanged to a | | | 6-Georgian pigtail catheter which was advanced into the [...] obtained via right femoral artery and a 6-Georgian arterial sheath was | | placed. A 6-Georgian JL4 catheter was then advanced under fluoroscopic | | guidance and engaged with the ostium of the left main coronary artery, and | | multiple projections of the left coronary systems were obtained with the | | use of contrast injections. The catheter was then exchanged to a 6-Georgian | | JR4 catheter, which was advanced under fluoroscopic guidance and engaged | | with the ostium of the right coronary artery, and multiple projections of | | the right coronary artery were obtained with the use of contrast | | injections. The catheter was then exchanged to a 6-Georgian pigtail catheter | | which was advanced [...]
--- OUTSIDE RECORDS SUMMARY | ~2019-12-14 | XMS | Encounter Summary ---
Demographics + + + | Address | [address] | | | [place] [address] | + + + | Home Phone | | + + + | Preferred Language | Unknown | + + + | Marital Status | | + + + | Baptist Affiliation | 1013 | + + + | Race | Unknown | + + + | Ethnic Group | Unknown | + + + Author + + + | Author | [facility] | | | and [place] | + + + | Organization | [facility] | | | and [place] | + + + | Address | Unknown | + + + | Phone | Unavailable | + + + Support + + + + + | Name | Relationship | Address | Phone | + + + + + | Adilenedannielle Morin | ECON | [address] | | | | | [place] [address] | | + + + + + Care Team Providers + +------+ + | Care Forensic Toxicologist Name | Role | Phone | + +------+ + PCP | Unavailable | + +------+ + Encounter Details +--------+ + + + + | Date | Type | Department | Care Team | Description | +--------+ + + + + | 04/27/ | Hospital | [facility] | | | | 2007 | Encounter | MED CTR [facility] INTRA OP | | | | | | [address] | | | | | | [place] | | | | | | [address] | | | | | | [phone] | | | +--------+ + + + [...]
--- OUTSIDE RECORDS SUMMARY | ~2019-12-14 | XMS | Encounter Summary ---
Demographics + + + | Address | [address] | | | [place] [address] | + + + | Home Phone | | + + + | Preferred Language | Unknown | + + + | Marital Status | | + + + | Alevism Affiliation | 1013 | + + + | Race | Unknown | + + + | Ethnic Group | Unknown | + + + Author + + + | Author | [facility] | | | and [place] | + + + | Organization | [facility] | | | and [place] | + + + | Address | Unknown | + + + | Phone | Unavailable | + + + Support + + + + + | Name | Relationship | Address | Phone | + + + + + | Adilenedannielle Morin | ECON | [address] | | | | | [place] [address] | | + + + + + Care Team Providers + +------+ + | Care Hand Pleater Name | Role | Phone | + +------+ + | Luís Goodrich PA-C | PCP | | + +------+ + Encounter Details +--------+ + + + + | Date | Type | Department | Care Team | Description | +--------+ + + + + | 07/18/ | Documentati | [facility] | Alexis Darling, | | | 2018 | on | [facility] | Laboratory Tester | | | | | [address] | | | | | | [facility] [place] | | | | | | [address] | | | | | | [phone] | | | +--------+ + + + [...]
--- OUTSIDE RECORDS SUMMARY | ~2019-12-14 | XMS | Clinical Summary ---
Demographics + + + | Address | [address] | | | [place] [address] | + + + | Home Phone | | + + + | Preferred Language | Unknown | + + + | Marital Status | | + + + | Zoroastrianism Affiliation | 1013 | + + + | Race | Unknown | + + + | Ethnic Group | Unknown | + + + Author + + + | Author | [facility] (Historical as of | | | 07-15-19) | + + + | Organization | [facility] (Historical as of | | | 07-15-19) | + + + | Address | Unknown | + + + | Phone | Unavailable | + + + Support + + + + + | Name | Relationship | Address | Phone | + + + + + | Adilene Tavera | ECON | [address] | | | | | [place] [address] | | + + + + + Care Team Providers + +------+ + | Care Manager Of Financial Name | Role | Phone | + [...] | | | | | | | [place], | | | | | | | [...] | | | | | | | [place], Ylang Viviang | | | | | | | | Flower, Marjoram | | | | | | | | [place], Fabio | | | | | | [...] | | | | | | | [place], Eucalyptus | | | | | | | | [place], Peppermint | | | | | | | | Plant, Melaleuca | | | | | | | | [place], Lemon Peel, | | | | | | | | Cardamom Seed, | | | | | | | | Ravintsara [place], | | | | | | | | Ravensara [place] | | | | | | | [...] | | | | | | Wild [place] Peel, | | | | | | | | Clove [place], Cinnamon | | | | | | | | [place], Cinnamon Bark, | | | | | | | | Eucalyptus [place], | | | | | | | | and Candace | | | | | | | | [place]/Flower | | | | | | | [...] | 04/19/2014 | + + + | [place] (myocardial infarction) | | + + + [...] +------+-------+ + | PREMERA | PREMER | [id number] | | | [address] [address] | | | A BLUE | 7 | | | [place] | | | CARD | | | | [address] | +---------+--------+ +------+-------+ + + +--------+ +--------+ + + | Guarantor Name | Accoun | Relation to | Date | Phone | Billing Address | | | t Type | Patient | of | | | | | | | | | | + +--------+ +--------+ + + | MOMO TAVERA | Person | Self [birth year] Home: | [address] | | | al/Fam | | 1955 | [phone] [place] | | | [place] | | | [phone] | [address] | + +--------+ +--------+ + +
--- OUTSIDE RECORDS SUMMARY | ~2019-12-14 | XMS | Encounter Summary ---
Demographics + + + | Address | [address] | | | [place] [address] | + + + | Home Phone | | + + + | Preferred Language | Unknown | + + + | Marital Status | | + + + | Denominational Affiliation | 1013 | + + + | Race | Unknown | + + + | Ethnic Group | Unknown | + + + Author + + + | Author | [facility] | | | and [place] | + + + | Organization | [facility] | | | and [place] | + + + | Address | Unknown | + + + | Phone | Unavailable | + + + Support + + + + + | Name | Relationship | Address | Phone | + + + + + | Adilene Mroin | ECON | [address] | | | | | [place] [address] | | + + + + + Care Team Providers + +------+ + | Care Bread Dumper Name | Role | Phone | + +------+ + PCP | Unavailable | + +------+ + Encounter Details +--------+ + + + + | Date | Type | Department | Care Team | Description | +--------+ + + + + | 07/06/ | Emergency | [facility] | [place], | | | 2011 | | MEDICAL CENTER | MD [address] | | | | | EMERGENCY CENTER | [place] [address] | | | | | [address] | [phone] | | | | | [place], [place] | | | | | | [address] | | | | | | [phone] | | | +--------+ + + + [...]
--- OUTSIDE RECORDS SUMMARY | ~2019-12-14 | XMS | Encounter Summary ---
Demographics + + + | Address | [address] | | | [place] [address] | + + + | Home Phone | | + + + | Preferred Language | Unknown | + + + | Marital Status | | + + + | Yazidism Affiliation | 1013 | + + + | Race | Unknown | + + + | Ethnic Group | Unknown | + + + Author + + + | Author | [facility] | | | and [place] | + + + | Organization | [facility] | | | and [place] | + + + | Address | Unknown | + + + | Phone | Unavailable | + + + Support + + + + + | Name | Relationship | Address | Phone | + + + + + | Adilene Mikel | ECON | [address] | | | | | [place] [address] | | + + + + + Care Team Providers + +------+ + | Care Set Up / Operator Name | Role | Phone | + +------+ + PCP | Unavailable | + +------+ + Encounter Details +--------+ + + + + | Date | Type | Department | Care Team | Description | +--------+ + + + + | 05/25/ | Hospital | [facility] | | | | 2007 | Encounter | MED CTR XRAY [address] | | | | | | [address] [place] | | | | | | [place] [address] | | | | | | [phone] | | | +--------+ + + + [...]
[2019-12-14] MEDS ORDERED: METOPROLOL SUCC25 MG (17:31)
[2019-12-14] MEDS ORDERED: ATORVASTATIN CA20 MG PO (17:31)
[2019-12-14] MEDS ORDERED: OXYCODONE-ACET1 EAC1 PO (17:31)
[2019-12-14] MEDS ORDERED: CYCLOBENZAPRINE10 MG PO (20:34)
== END 2019-12-14 20:56 | disposition home or self-care (01) ==
LOC: ED 17:13
DX: R10.32 Left lower quadrant pain (principal); I25.2 Old myocardial infarction; Z87.891 Personal history of nicotine dependence; Z88.5 Allergy status to narcotic agent; Z79.899 Other long term (current) drug therapy
CPT/HCPCS: 74177; 80053; 81001; 83690; 83735; 85025; 99284-25; J2270; J2405; J7030; Q9967